=== PATIENT | female | born 1990 | race African-American/Black ===

== ENCOUNTER 2018-09-04 11:18 | Emergency (ER) | payer MEDICAID, SELFPAY ==
[2018-09-04 11:18] VITALS: BP 141/83; PULSE 108; RESP 16; TEMP 36.4; O2SAT 99; BMI 33.4
--- NOTE | 2018-09-04 11:35 | ED.VISSUMM ---
- ER Visit Summary Date of Service: 09/04/18 Chief Complaint: Red watery eye History of Present Illness: The patient is a 28 F who states that on Wednesday and she had a watering red left eye. Wednesday she had vomiting when she woke on Wednesday morning the medial part of her eye was more red. She states that this morning the eyelashes were crusted. She denies any pain. She does not wear contact lenses. She does wear corrective lenses. Physical Examination: Afebrile vital signs are stable Gen: Well-nourished well-developed Head: Normocephalic atraumatic Eyes: Perrl EOMI on the medial aspect of the left eye is a subconjunctival hemorrhage. There is no hyphema. There is no photophobia. The rest of the eye is injected and the patient has tearing. ENT: TMs clear no rhinorrhea moist mucous membranes Neck: Supple no lymphadenopathy no JVD nontender CVS: Regular rate rhythm no murmurs normal S1-S2 Respiratory: No distress clear to auscultation bilaterally chest nontender Abdomen: Soft nontender nondistended normal bowel sounds no masses Back: Nontender Extremity: Nontender no edema Skin: Normal color no rash Neuro: alert orientated ?3 CN II-XII intact normal strength sensation reflexes gait cerebellar Psych: Normal affect normal mood Emergency Department Course and Treatment: She will be started on gentamicin ophthalmic drops. Patient return if worsening or concerns. If no improvement follow-up with ophthalmology. Impression: 1. Acute conjunctivitis left eye 2. Subconjunctival hemorrhage left eye This note was generated with [employer] dictation software. It may contain incorrect words, spelling, and punctuation that were not noted in review of the chart prior to signing ED Disposition - Plan for ED Patient: Disposition: Home or Assisted Living Instructions: ED Conjunctivitis Bacterial, ED Eye Injury Subconj Hemorrhage Referrals: Wenceslao Ledesma MD [STAFF PHYSICIAN] - 3-5 Days if not improving Additional Instructions: The eyedrops are 2 drops every 4 hours x 5 days
[2018-09-04] MEDS: Gentamicin Sulfate 1 OPTH.BTL 2 DRP LEFT EYE (11:51)
== END 2018-09-04 11:52 | disposition home or self-care (01) ==
LOC: ED 11:45
PROVIDERS: Emergency Provider Emergency Medicine; Family Provider Student in an Organized Health Care Education/Training Program; PCP Student in an Organized Health Care Education/Training Program
DX: H10.32 Unspecified acute conjunctivitis, left eye (principal); H11.32 Conjunctival hemorrhage, left eye; K21.9 Gastro-esophageal reflux disease without esophagitis
CPT/HCPCS: 99283

== ENCOUNTER 2019-08-24 14:06 | Emergency (ER) | payer MEDICAID, SELFPAY ==
[2019-08-24 14:07] VITALS: BP 148/91; PULSE 82; RESP 17; TEMP 37.2; O2SAT 100; BMI 36.1
[2019-08-24] MEDS: Loperamide 2 MG Capsule 4 MG PO (14:36)
[2019-08-24] MEDS: Ondansetron ODT 4 MG Tablet PO (14:36)
--- NOTE | 2019-08-24 14:46 | ED.VIS.GEN ---
History of Present Illness Chief Complaint: Nausea/Vomiting/Diarrhea Informant: Patient, Family, Significant Other Onset: Today Narrative: She presents the emergency department with vomiting and diarrhea. Symptoms began during the night. She notes her daughter had a stomach flu last weekend. She tells me that she felt okay yesterday but did have a little bit of runny nose and a cough. No fevers. No bad food exposure. No recent antibiotics. She denies any significant abdominal pains but does note some intermittent cramping.. Past Medical History - Allergies and Home Meds Allergies/Adverse Reactions: Allergies No Known Allergies Allergy (Verified 08/24/19 14:07) Primary Care Physician: Toby Fontaine DO [Primary Care Provider] - Smoking Status: Never smoker Review of Systems General: Denies: Chills, Fever, Sweats Eyes: Denies: Visual changes - bilaterally, Diplopia ENT: Reports: Rhinorrhea. Denies: Sore throat Cardiovascular: Denies: Chest pain, Palpitations Respiratory: Reports: Cough. Denies: Dyspnea, Dyspnea on exertion Gastrointestinal: Reports: Nausea, Vomiting, Diarrhea. Denies: Abdominal pain, Melena, Hematochezia Genitourinary: Denies: Dysuria, Hematuria, Frequency Musculoskeletal: Denies: Back pain, Extremity Pain Skin: Denies: Rash, Wounds Neurological: Denies: Headache, Weakness, Numbness Physical Exam Vital Signs/Narrative: Vital Signs Temp Pulse Resp BP Pulse Ox 08/24/19 14:07 98.9 F 82 17 148/91 H 100 Inital Vital Signs reviewed: Yes General: Well nourished, Well developed, No Acute Distress Head: Normocephalic, Atraumatic Eyes: Perrl, EOMI ENT: Moist mucous membranes, No rhinorrhea Neck: Supple, Nontender Cardiovascular: Regular rate, Regular rhythm, No murmurs Respiratory: No distress, CTA bilaterally, Chest nontender Abdomen: Soft, Nontender, Nondistended, Normal bowel sounds Back: Nontender, Normal Inspection Extremities: Nontender, No edema Skin: Normal color, No rash Neurological: Alert, Oriented x3, Cranial nerves II-XII grossly intact, Normal Strength, Normal Sensation Psychological: Normal affect, Normal Mood Diagnostic/Tx/Re-eval - Medical Decision Making She received a dose of Imodium and Zofran. She is given a p.o. challenge. I believe this most likely is a viral gastroenteritis. Patient be discharged home with Zofran and Imodium return if worsening or concerns. oral hydration encouraged. ED Disposition - Plan for ED Patient: Disposition: Home or Assisted Living Instructions: GASTROENTERITIS, Viral (7y-Adult) Prescriptions: Ondansetron [Zofran Odt] 4 mg PO Q8H PRN PRN #14 tab PRN Reason: Nausea Prescription Printed Referrals: Toby Fontaine DO [Primary Care Provider] - As Needed Additional Instructions: Imodium as needed for diarrhea. Drink plenty of water to stay hydrated. Return if worsening or concerns.
[2019-08-24 15:02] VITALS: BP 135/89; PULSE 67; RESP 18
== END 2019-08-24 15:08 | disposition home or self-care (01) ==
PROVIDERS: Emergency Provider Emergency Medicine; PCP Student in an Organized Health Care Education/Training Program
DX: A08.4 Viral intestinal infection, unspecified (principal)
CPT/HCPCS: 99283

== ENCOUNTER 2020-12-28 09:08 | Emergency (ER) | payer MEDICAID, SELFPAY ==
[2020-12-28 09:09] VITALS: BP 140/93; PULSE 103; RESP 18; TEMP 36.5; O2SAT 96; BMI 33.4
[2020-12-28 09:11] VITALS: BP 140/93; PULSE 103; RESP 18; TEMP 36.5; O2SAT 96
--- NOTE | 2020-12-28 09:23 | CT_ITS ---
EXAM: CT ABDOMEN AND PELVIS WITHOUT INTRAVENOUS CONTRAST : 1990 CLINICAL INDICATION: Pain TECHNIQUE: Helically acquired images were obtained of the abdomen and pelvis without intravenous contrast. This CT exam was performed using one or more of the following dose reduction techniques: automated exposure control, adjustment of the mA and/or kV according to patient size, and/or use of iterative reconstruction technique. This report was created using [employer] report generation technology. COMPARISON: None. FINDINGS: LOWER THORAX: Unremarkable. Lung bases are clear. No cardiomegaly. No significant pericardial effusion. ABDOMEN: LIVER: Unremarkable. Homogeneous. GALLBLADDER AND BILE DUCTS: Gallbladder is absent. No intra- or extrahepatic biliary ductal dilation. PANCREAS: Unremarkable. No focal cystic mass. SPLEEN: Unremarkable. Normal size without focal cystic or solid mass. ADRENALS: Unremarkable. No nodules. KIDNEYS AND URETERS: Unremarkable. Normal renal size and position. No hydronephrosis. STOMACH AND BOWEL: Unremarkable. No stomach or bowel distention. No focal inflammatory change. PELVIS: APPENDIX: Appendix is visualised and normal in appearance. BLADDER: Unremarkable. REPRODUCTIVE: Unremarkable as visualized. No mass. ABDOMEN and PELVIS: INTRAPERITONEAL SPACE: Unremarkable. No ascites or other fluid collection. No free air. BONES/JOINTS: Unremarkable. No suspicious lytic or blastic abnormality. SOFT TISSUES: Unremarkable. No discrete abdominal or pelvic wall hernia. VASCULATURE: Unremarkable. Abdominal aorta is non-dilated. LYMPH NODES: Unremarkable. No enlarged lymph nodes. CT/Abdomen/Pelvis without Cont IMPRESSION: No acute abdominal or pelvic abnormality. Individualized dose optimization techniques were used for this CT. at 1111 Reported and signed by: Main Monzon MD Electronically Signed: Main Monzon MD at 11:10 EDT Tel , Service support ,
--- NOTE | 2020-12-28 09:59 | EDS_ITS ---
HPI History of Present Illness Chief Complaint: Flank Pain Narrative Narrative: Right flank pain that began yesterday for unspecified reasons patient ports she did lift an object into her car she had no pain with doing so then later on the day but she been having right flank pain, she indicates a week ago she had right flank pain for unspecified reason she had no specific activity then, she denies fever cough direct trauma, prior cholecystectomy, no other GI issues, no kidney issues kidney stones normal bowel bladder habits denies being no coronavirus exposures, no fever cough she points to her right flank as area of discomfort no other issues PFSH PFSH Medical History (Updated 12/28/20 @ 11:[address] Declan Awad MD) GERD (gastroesophageal reflux disease) Home Medications cyclobenzaprine 10 mg PO TID PRN PRN 09/04/18 [History Last Taken Unknown] naproxen 500 mg PO BID PRN PRN 09/04/18 [History Last Taken Unknown] pantoprazole 40 mg PO DAILY 09/04/18 [History Last Taken Unknown] ondansetron 4 mg PO Q8H PRN PRN #14 tab 08/24/19 [Rx Last Taken Unknown] naproxen 500 mg PO BID #14 tab 12/28/20 [Rx Last Taken Unknown] Allergy/AdvReac Type Severity Reaction Status Date / Time No Known Allergies Allergy Verified 12/28/20 09:09 Surgical History (Updated 12/28/20 @ 09:48 by Taylor Gr) History of cholecystectomy Social History Smoking Status: Never smoker ROS ROS ED ROS Narrative Right flank pain as above there is a component of movement makes the pain worse she has not taken for the pain yet she has no back ailments Constitutional Constitutional ED: Reports subjective, sweats and other; Denies chills, fever(s) or weight loss Eyes Eyes: Denies blurry vision or change in vision ENT ENT ED: Denies ear pain Cardiovascular Cardiovascular: Denies chest pain or palpitations Respiratory/Chest Respiratory/Chest: Denies dyspnea Gastrointestinal Gastrointestinal: Denies abdominal pain, nausea or vomiting Genitourinary Genitourinary ED: Denies dysuria or hematuria Musculoskeletal Musculoskeletal: Denies arthralgias or myalgias Integumentary Reports rash; Denies abscess Neurologic Neurologic: Denies weakness Psychiatric Psychiatric: Denies anxiety or depression Endocrine Endocrinology: Denies polydipsia or polyuria Allergic/Immunologic Allergic/Immunologic ED: Denies urticaria EXAM Physical Exam Narrative Exam Narrative: She has a very mild right flank pain head neck chest unremarkable abdomen soft nontender she moving all 4 extremities midline back is unremarkable see as above there Const Vital Signs: 12/28/20 09:09 12/28/20 09:11 12/28/20 11:13 Temperature 97.7 F L 97.7 F L Temperature Source Temporal Temporal Pulse Rate 103 H 103 H 83 Respiratory Rate 18 18 14 Blood Pressure 140/93 H 140/93 H 143/107 H Blood Pressure Mean 108 108 119 Pulse Ox 96 96 98 Oxygen Delivery Method Room Air Room Air Room Air Positive well developed General Appearance ED: well developed HEENT Reports normocephalic Negative for trauma Eyes EOMs intact bilaterally Neck supple Chest Wall inspection of chest normal Resp normal respiratory effort Cardio regular rate GI non-tender and non-distended Back/Spine Back/Spine Narrative: unremarkable Extremity normal to inspection Neuro oriented x3 and CN's II-XII intact bilaterally Sensorium / Orientation: alert Psych mental status grossly normal Skin no rashes or lesions noted MDM MDM MDM Narrative Medical decision making narrative: Given her complaints and her age and this recurrent flank pain may or may not be musculoskeletal differentials extensive she undergo ED screening labs CT pain management Patient's ED screening evaluation labs urine CT abdomen pelvis showed nothing acute see those reports explained this to her given her initial mechanism of lifting pack the pain is worse with twisting was negative ED work-up this is likely with musculoskeletal condition she will be started on Naprosyn ice follow-up with her primary care physicians and return for change in symptoms Home stable Right flank pain after lifting Lab Data Labs: Laboratory Results - last 24 hr 12/28/20 12/28/20 12/28/20 10:00 10:00 10:00 WBC 6.4 RBC 5.10 Hgb 14.2 Hct 44.0 MCV 86.3 MCH 27.8 MCHC 32.3 RDW Std Deviation 44.5 H RDW Coeff of Jolanta 14.1 Plt Count 387 MPV 8.8 Immature Gran % (Auto) 0.200 Neut % (Auto) 54.7 Lymph % (Auto) 34.7 [place] % (Auto) 7.2 Eos % (Auto) 2.7 Baso % (Auto) 0.5 Absolute Neuts (auto) 3.5 Absolute Lymphs (auto) 2.21 Nucleated RBC % 0 Sodium 142 Potassium 4.0 Chloride 108 H Carbon Dioxide 29.0 Anion Gap 5 BUN 11 Creatinine 0.81 Estim Creat Clear Calc 103.38 Est GFR (MDRD) Af Amer 107 Est GFR (MDRD) Non-Af 88 BUN/Creatinine Ratio 13.5 Glucose 88 Calcium 9.5 Total Bilirubin 0.20 AST 16 ALT 28 Alkaline Phosphatase 67 Total Protein 8.4 H Albumin 4.5 Globulin 3.9 Albumin/Globulin Ratio 1.2 Lipase 132 Serum , Qual NEGATIVE Urine Color Urine Clarity Urine pH Ur Specific [place] Urine Protein Urine Glucose (UA) Urine Ketones Urine Occult Blood Urine Nitrite Urine Bilirubin Urine Urobilinogen Ur Leukocyte Esterase Urine RBC Urine WBC Ur Squamous Epith Cells Urine Bacteria Urine Mucus 12/28/20 10:00 WBC RBC Hgb Hct MCV MCH MCHC RDW Std Deviation RDW Coeff of [place] Plt Count MPV Immature Gran % (Auto) Neut % (Auto) Lymph % (Auto) [place] % (Auto) Eos % (Auto) Baso % (Auto) Absolute Neuts (auto) Absolute Lymphs (auto) Nucleated RBC % Sodium Potassium Chloride Carbon Dioxide Anion Gap BUN Creatinine Estim Creat Clear Calc Est GFR (MDRD) Af Amer Est GFR (MDRD) Non-Af BUN/Creatinine Ratio Glucose Calcium Total Bilirubin AST ALT Alkaline Phosphatase Total Protein Albumin Globulin Albumin/Globulin Ratio Lipase Serum , Qual Urine Color Yellow Urine Clarity Clear Urine pH 8.0 Ur Specific [place] 1.015 Urine Protein Negative Urine Glucose (UA) Normal Urine Ketones Negative Urine Occult Blood 50 H Urine Nitrite Negative Urine Bilirubin Negative Urine Urobilinogen Normal Ur Leukocyte Esterase Negative Urine RBC 0 SEEN Urine WBC 0-5 SEEN Ur Squamous Epith Cells 0-5 SEEN Urine Bacteria 1+ Urine Mucus 0 SEEN Radiography Diagnostic Testing: Radiology Impression Abdomen/Pelvis CT 12/28/20 09:23 IMPRESSION: No acute abdominal or pelvic abnormality. Individualized dose optimization techniques were used for this CT. at 1111 Reported and signed by: Main Monzon MD Electronically Signed: Main Monzon MD at 11:10 EDT Tel , Service support , Discharge Plan Triage Chief Complaint: Flank Pain ED Provider: Declan Awad Dx/Rx/DC Orders Clinical Impression: Acute flank pain Instructions: ED Flank Pain, Uncertain Cause Prescriptions: New naproxen 500 MG tablet 500 mg PO BID Qty: 14 RF: 0 No Action cyclobenzaprine 10 MG tablet 10 mg PO TID PRN PRN (Reason: muscle spasms) RF: 0 pantoprazole 40 MG tablet 40 mg PO DAILY RF: 0 naproxen 500 MG tablet 500 mg PO BID PRN PRN (Reason: Pain) RF: 0 ondansetron 4 MG tablet 4 mg PO Q8H PRN PRN (Reason: Nausea) Qty: 14 RF: 0 Primary Care Provider: Toby Fontaine Referrals: Toby Fontaine DO [Primary Care Provider] -
[2020-12-28 10:07] LABS: Mucous, Urine 0 SEEN /hpf (<or=2+); Red Blood Cells-Urine 0 SEEN /hpf (0-5)
[2020-12-28] MEDS: morphine 8 MG/ML Syringe IV (10:07)
[2020-12-28] MEDS: Ondansetron 4 MG/2 ML Vial IV (10:07)
[2020-12-28 10:09] LABS: Color, Urine Yellow (Yellow); Glucose, Dipstick Normal (Normal); Ketone-Dipstick Negative (Negative); Leukocyte Esterase-Dipstick Negative /ul (Negative); Nitrite-Dipstick Negative (Negative); Occult Blood-Urine 50 /ul (Negative); Protein-Dipstick Negative (Negative); Specific Gravity, Urine 1.015 (1.002-1.030); Urine Bilirubin Dipstick Negative (Negative); Urine Clarity Clear (Clear); Urine Urobilinogen Normal (Normal)
[2020-12-28 10:11] LABS: Absolute Lymphocyte Count 2.21 X10^3/uL (0.83-4.51); Absolute Neutrophil Count 3.5 X10^3/uL (2.0-7.7); Basophil# 0.03 X10^3/uL; Basophil% 0.5 % (0-1); Eosinophil# 0.17 X10^3/uL; Eosinophils% 2.7 % (0-5); Hemoglobin 14.2 g/dL (12.0-15.0); Lymphocyte # 2.21 X10^3/ul (0.83-4.51); Lymphocyte % 34.7 % (19-41); Mean Corp Hgb Conc 32.3 g/dL (32-36); Mean Corpuscular Hgb 27.8 pg (27.0-32.0); Mean Corpuscular Volume 86.3 fL (81-99); Mean Platelet Vol. 8.8 fl (6.2-12.0); Monocyte# 0.46 X10^3/uL; Monocyte% 7.2 % (0-10); NRBC Flagged by Analyzer 0 % (0-5); Neutrophil # 3.49 X10^3/uL (2.7-7.7); Neutrophil % 54.7 % (47-70); Platelet Count 387 K/mm3 (150-450); RBC Distribution Width CV 14.1 % (11.6-14.6); RBC Distribution Width SD 44.5 fl (35.1-43.9); White Blood Count 6.4 K/mm3 (4.4-11.0)
[2020-12-28 10:24] LABS: ALB/GLOB Ratio 1.2 RATIO (0.9-2.4); AST(SGOT) 16 U/L (15-37); Alanine Aminotransfer ALT/SGPT 28 U/L (13-56); Albumin, Serum 4.5 g/dL (3.2-5.0); Alkaline Phosphatase 67 U/L (45-117); Anion Gap 5 (5-15); BUN 11 mg/dL (7-18); BUN/Creat Ratio 13.5 RATIO (10-20); Calcium,Total 9.5 mg/dL (8.5-10.1); Chloride 108 mmol/L (98-107); Creatinine, Serum 0.81 mg/dL (0.55-1.02); EST Glomerular Filtration Rate 88 mL/min (>60); Est Glom Filt Rate - Afr Amer 107 mL/min (>60); Estimated Creatinine Clearance 103.38 ml/min; Globulin 3.9 g/dL (2.2-4.2); Glucose 88 mg/dL (74-106); Lipase 132 U/L (73-393); Protein, Total 8.4 g/dL (6.4-8.2); Sodium Level 142 mmol/L (136-145)
[2020-12-28 10:26] LABS: Bacteria 1+ /hpf (None Seen); Squamous Epithelial Cells - UA 0-5 SEEN /hpf (5-10); White Blood Cells 0-5 SEEN /hpf (0-5)
[2020-12-28 10:37] LABS: Internal QC Validated? YES +Cl - CLEAR BKGD; Pregnancy, Serum, hCG Quali. NEGATIVE Negative
[2020-12-28] MEDS: Ketorolac 30 MG/ML Syringe IV (11:12)
[2020-12-28 11:13] VITALS: BP 143/107; PULSE 83; RESP 14; O2SAT 98
== END 2020-12-28 12:02 | disposition home or self-care (01) ==
LOC: ED 10:46
PROVIDERS: Emergency Provider Emergency Medicine; PCP Student in an Organized Health Care Education/Training Program
DX: R10.9 Unspecified abdominal pain (principal); K21.9 Gastro-esophageal reflux disease without esophagitis; Z90.49 Acquired absence of other specified parts of digestive tract; Z79.1 Long term (current) use of non-steroidal anti-inflammatories (NSAID)
CPT/HCPCS: 74176; 80053; 81001; 83690; 84703; 85025; 87086; 87088; 96374; 96375; 99282; A4216; J2405

== ENCOUNTER → 2021-06-02 10:56 | Outpatient (CLI) | payer MEDICAID, SELFPAY ==
[2021-06-02 11:34] LABS: Hemoglobin A1c 5.2 % (3.8-5.6)
[2021-06-02 11:40] LABS: Cholesterol 170 mg/dL (200); Glucose 85 mg/dL (74-106); High Density Lipoprotein 69 mg/dL; Prolactin 6.2 ng/mL; Thyroid Stim Hormone (TSH) 0.63 uIU/mL (0.358-3.74); Triglycerides 110 mg/dL; Very Low Density Lipoprotein 22 mg/dL (5-40)
[2021-06-07 15:07] LABS: Testosterone, % Free 1.55 % (0.50-2.80); Testosterone, Free 0.17 ng/dL (0.10-0.85); Testosterone, Total 11 ng/dL (13-71)
== END ==
PROVIDERS: PCP Student in an Organized Health Care Education/Training Program; Referring Provider Obstetrics & Gynecology; Visit Provider Obstetrics & Gynecology
DX: Z31.9 Encounter for procreative management, unspecified (principal)
CPT/HCPCS: 36415; 80061; 82627; 82947; 83036; 84146; 84402; 84403; 84443; 82626

== ENCOUNTER 2021-08-12 11:56 | Outpatient (CLI) | payer MEDICAID, SELFPAY ==
--- NOTE | 2021-08-12 11:58 | RAD_ITS ---
STUDY: HYSTEROSALPINGOGRAM. REASON FOR EXAM: Female, 31 years old. Infertility FLUOROSCOPY TIME (if supplied): ( 15 seconds ) minutes/seconds. 2 images were obtained. TECHNIQUE: A hysterosalpingogram was performed by the scallop binder. Imaging was provided. COMPARISON: None. FINDINGS: The uterus is unremarkable. Both fallopian tubes are widely patent with free spill. RAD/Salpingogram IMPRESSION: Unremarkable hysterosalpingogram. Electronically Signed: Luis Ernst MD at 15:08 EST ,
--- NOTE | 2021-08-15 13:05 | OP.PCM_ITS ---
Operative Report Date of Procedure: 08/12/21 Preop diagnosis: Infertility Postop diagnosis: Infertility, bilateral tubal patency Procedure: Hysterosalpingogram Surgeon: Patricia Borrero Do Implantable devices: None Complications: None Findings: Bilateral tubal patency and normal uterine cavity Operative details: Patient was taken to the x-ray room and was placed on the x- ray table and was in the dorsal lithotomy position. Speculum was placed in the vagina and the cervix prepped with Betadine and the HSG catheter was easily introduced into the uterus and speculum removed. Radiologist was brought in and while pushing radiopaque dye into the uterus via the HSG catheter the radiologist took multiple images and views and confirmed bilateral tubal patency seen. No gross uterine filling defects or abnormalities were seen. All instruments removed from the vagina and the uterus without complication. Patient tolerated the procedure well. Multi Select Codes Urinary/Genital Urinary/Genital CPT Codes: 11341 HSG/SIS
== END 2021-08-12 23:59 | disposition short-term general hospital (02) ==
LOC: RAD 11:58
PROVIDERS: PCP Student in an Organized Health Care Education/Training Program; Referring Provider Obstetrics & Gynecology; Visit Provider Obstetrics & Gynecology
DX: E28.2 Polycystic ovarian syndrome (principal); N97.9 Female infertility, unspecified
CPT/HCPCS: 58340; 74740; Q9967

== ENCOUNTER 2021-09-15 08:54 | Outpatient (CLI) | payer MEDICAID, SELFPAY ==
[2021-09-15 09:39] LABS: hCG Titer Quant., Serum 829 mIU/mL (1-3)
== END 2021-09-15 23:59 | disposition home or self-care (01) ==
PROVIDERS: PCP Student in an Organized Health Care Education/Training Program; Referring Provider Obstetrics & Gynecology; Visit Provider Obstetrics & Gynecology
DX: N92.6 Irregular menstruation, unspecified (principal)
CPT/HCPCS: 36415; 84702

== ENCOUNTER 2021-09-17 08:47 | Outpatient (CLI) | payer MEDICAID, SELFPAY ==
[2021-09-17 09:57] LABS: hCG Titer Quant., Serum 1682 mIU/mL (1-3)
== END 2021-09-17 23:59 | disposition home or self-care (01) ==
LOC: PAVLAB 08:48
PROVIDERS: PCP Student in an Organized Health Care Education/Training Program; Referring Provider Obstetrics & Gynecology; Visit Provider Obstetrics & Gynecology
DX: N92.6 Irregular menstruation, unspecified (principal)
CPT/HCPCS: 36415; 84702

== ENCOUNTER 2021-10-09 14:01 | Outpatient (CLI) | payer MEDICAID, SELFPAY ==
[2021-10-09 13:45] LABS: Amphetamine Urine VISTA NEGATIVE (<1000 ng/mL); Barbiturate Urine VISTA NEGATIVE (< 200 ng/mL); Benzodiazepine Urine VISTA NEGATIVE (< 200 ng/mL); Cocaine Urine VISTA NEGATIVE (< 300 ng/mL); Ecstacy Urine VISTA NEGATIVE (< 500 ng/mL); Methadone Urine VISTA NEGATIVE (< 300 ng/mL); PCP Urine VISTA NEGATIVE (< 25 ng/mL); THC Urine VISTA POSITIVE (< 50 ng/mL); Vista UDS pH Range 5
[2021-10-12 09:08] LABS: Chlamydia By Nucleic Acid AMP Negative (Negative)
[2021-10-12 10:20] LABS: Gonococcus By Nucleic Acid AMP Negative (Negative)
[2021-10-17 13:47] LABS: HPV APTIMA, High Risk Negative (Negative)
== END 2021-10-09 23:59 | disposition home or self-care (01) ==
LOC: LABSPEC 14:02
PROVIDERS: PCP Student in an Organized Health Care Education/Training Program; Visit Provider Obstetrics & Gynecology
DX: Z34.80 Encounter for supervision of other normal pregnancy, unspecified trimester (principal)
CPT/HCPCS: 80307; 87086; 87088; 87491; 87591; 87624; 88175; G0145

== ENCOUNTER 2021-10-24 09:31 | Outpatient (CLI) | payer MEDICAID, SELFPAY ==
[2021-10-24 10:11] LABS: Absolute Lymphocyte Count 1.77 X10^3/uL (0.83-4.51); Absolute Neutrophil Count 5.7 X10^3/uL (2.0-7.7); Basophil# 0.01 X10^3/uL; Basophil% 0.1 % (0-1); Eosinophil# 0.07 X10^3/uL; Eosinophils% 0.9 % (0-5); Hematocrit 37.6 % (37-47); Hemoglobin 12.3 g/dL (12.0-15.0); Lymphocyte # 1.77 X10^3/ul (0.83-4.51); Lymphocyte % 22.1 % (19-41); Mean Corp Hgb Conc 32.7 g/dL (32-36); Mean Corpuscular Hgb 27.8 pg (27.0-32.0); Mean Corpuscular Volume 85.1 fL (81-99); Mean Platelet Vol. 9.1 fl (6.2-12.0); Monocyte# 0.38 X10^3/uL; Monocyte% 4.8 % (0-10); NRBC Flagged by Analyzer 0 % (0-5); Neutrophil # 5.74 X10^3/uL (2.7-7.7); Neutrophil % 71.7 % (47-70); Platelet Count 331 K/mm3 (150-450); RBC Distribution Width CV 13.2 % (11.6-14.6); Red Blood Count 4.42 M/mm3 (4.2-5.4)
[2021-10-24 10:55] LABS: NATERA MAILED SPECIMEN
[2021-10-24 11:08] LABS: Glucose Challenge Gest 1H 50g 112 mg/dL (70-140)
[2021-10-24 11:37] LABS: HIV - WCH Non-Reactive (Nonreactive); Hepatitis B Surface Antigen Non-Reactive (Nonreactive); Hepatitis C Antibody Non-Reactive (Nonreactive); Rubella IgG Reactive (Nonreactive); Syphilis Antibodies Non-reactive
[2021-10-26 15:53] LABS: V-Zoster IgG (Immunity) < 135 index (Immune >165)
== END 2021-10-24 23:59 | disposition home or self-care (01) ==
LOC: PAVLAB 09:33
PROVIDERS: PCP Student in an Organized Health Care Education/Training Program; Referring Provider Obstetrics & Gynecology; Visit Provider Obstetrics & Gynecology
DX: O99.210 Obesity complicating pregnancy, unspecified trimester (principal)
CPT/HCPCS: 36415; 82950; 85025; 86703; 86762; 86780; 86787; 86803; 86850; 86900; 86901; 87340

== ENCOUNTER → 2021-12-05 | Outpatient (CLI) | payer MEDICAID, SELFPAY ==
[2021-12-04 11:06] LABS: Amphetamine Urine VISTA NEGATIVE (<1000 ng/mL); Barbiturate Urine VISTA NEGATIVE (< 200 ng/mL); Benzodiazepine Urine VISTA NEGATIVE (< 200 ng/mL); Cocaine Urine VISTA NEGATIVE (< 300 ng/mL); Ecstacy Urine VISTA NEGATIVE (< 500 ng/mL); Methadone Urine VISTA NEGATIVE (< 300 ng/mL); PCP Urine VISTA NEGATIVE (< 25 ng/mL); THC Urine VISTA POSITIVE (< 50 ng/mL); Vista UDS pH Range 7
== END | disposition home or self-care (01) ==
LOC: LABSPEC 09:27
PROVIDERS: PCP Student in an Organized Health Care Education/Training Program; Visit Provider Nurse Practitioner Women's Health
DX: O99.321 Drug use complicating pregnancy, first trimester (principal); F12.90 Cannabis use, unspecified, uncomplicated; Z3A.13 13 weeks gestation of pregnancy
CPT/HCPCS: 80307

== ENCOUNTER → 2021-12-30 | Outpatient (CLI) | payer MEDICAID, SELFPAY ==
--- NOTE | 2021-12-30 09:13 | US_ITS ---
STUDY: ULTRASOUND BREAST - RIGHT REASON FOR EXAM: Female, 31 years old. Palpable mass TECHNIQUE: Axial and longitudinal images of the RIGHT breast were performed with a high resolution ultrasound transducer. # OF IMAGES: 29 COMPARISON: None. FINDINGS: RIGHT Breast: Heterogeneous background echotexture. Multiple longitudinal and transverse ultrasound images of the lower inner quadrant of the right breast fail to demonstrate a discrete solid or cystic mass.: US/Breast Limited Unilateral IMPRESSION: Normal right breast ultrasound. Biopsy and of any palpable abnormality should be performed if clinically indicated. ASSESSMENT CATEGORY: BIRADS Category 1: Negative. A letter regarding these results will be sent to the patient by the facility within 30 days. Electronically Signed: Liam Thao MD at 10:00 EDT ,
== END | disposition home or self-care (01) ==
LOC: OPBI 09:11
PROVIDERS: PCP Student in an Organized Health Care Education/Training Program; Referring Provider Nurse Practitioner Family; Visit Provider Nurse Practitioner Family
DX: N63.14 Unspecified lump in the right breast, lower inner quadrant (principal)
CPT/HCPCS: 76642

== ENCOUNTER → 2022-01-06 | Outpatient (CLI) | payer MEDICAID, SELFPAY | END | disposition home or self-care (01) | LOC: LABSPEC 14:13 | PROVIDERS: PCP Student in an Organized Health Care Education/Training Program; Referring Provider Nurse Practitioner Family; Visit Provider Nurse Practitioner Family | DX: N61.1 Abscess of the breast and nipple (principal) | CPT/HCPCS: 87070; 87077; 87205 ==

== ENCOUNTER 2022-02-01 10:35 | Emergency (ER) | payer MEDICAID, SELFPAY ==
[2022-02-01 10:35] VITALS: BP 138/78; PULSE 109; RESP 16; TEMP 36.2; O2SAT 98; BMI 34.0
--- NOTE | 2022-02-01 10:47 | EDS_ITS ---
HPI History of Present Illness Chief Complaint: Nausea/Vomiting Detail of Chief Complaint: Vomiting and diarrhea that started this morning around 5 AM Informant: patient Narrative Narrative: Patient presents to the emergency department with complaint of vomiting and diarrhea that started this morning around 5 AM. Patient states that she has vomited about 5 times and has had about 3 watery stools. Patient denies any blood in her stool. She denies dysuria. She denies fever. She denies sick contacts. Patient denies abdominal pain. Patient is 25 weeks . She is G2, P1. Patient has not had issues with hyperemesis during this . PFSH PFS Medical History Depression GERD (gastroesophageal reflux disease) Thyromegaly Home Medications vits no.126-ferrous fum 28 mg iron-folic acid 800 mcg tablet (Classic ) 1 tab PO DAILY 90 days #90 tabs 06/02/21 [Rx Last Taken Unknown] penicillin V potassium 500 mg tablet 500 mg PO BID 10 days #20 tabs 01/28/22 [Rx Last Taken Unknown] ondansetron 4 mg disintegrating tablet 4 mg PO Q8H PRN PRN Nausea #10 tabs 02/01/22 [Rx Last Taken Unknown] Allergy/AdvReac Type Severity Reaction Status Date / Time powder Allergy Mild rash Uncoded 02/01/22 10:36 tape Allergy Mild Rash Uncoded 02/01/22 10:36 Family History Mother Hypertension Thyroid disorder Surgical History History of cholecystectomy S/P Social History adopted: No household members: spouse and children number of children: 1 current occupational status: employed current occupation: [employer] pets and animals: Yes pets and animals: dog(s) Smoking Status: Former smoker alcohol intake: current details: occasionally/not while substance use type: does not use caffeine: Yes what type of physical activity do you participate in: none seatbelt use: always do you feel safe at home: Yes additional social history: -Julian (daughter Antonette from previous relationship) ROS ROS ED Review of Systems ROS Unobtainable: other Constitutional Constitutional ED: Reports lethargy; Denies chills, fever(s), sweats or weight loss Eyes Eyes: Denies blurry vision, change in vision or diplopia ENT ENT ED: Denies rhinorrhea or sore throat Cardiovascular Cardiovascular: Reports chest pain and racing heartbeat; Denies orthopnea Respiratory/Chest Respiratory/Chest: Reports dyspnea and dyspnea on exertion; Denies cough, orthopnea or sputum Gastrointestinal Gastrointestinal: Reports diarrhea, nausea and vomiting; Denies abdominal pain Genitourinary Genitourinary ED: Denies dysuria, hematuria or urinary frequency Musculoskeletal Musculoskeletal: Denies arthralgias, back pain, myalgias or neck pain Integumentary Denies abscess, Abrasions or rash Neurologic Neurologic: Denies headache(s) or weakness Psychiatric Psychiatric: Denies anxiety, depression or suicidal thoughts Endocrine Endocrinology: Denies polydipsia, polyphagia or polyuria Hematologic/Lymphatic Hematologic/Lymphatic: Denies easy bleeding, easy bruising or lymphadenopathy Allergic/Immunologic Allergic/Immunologic ED: Denies mouth swelling, tongue swelling or urticaria EXAM Physical Exam Const Vital Signs: 02/01/22 10:35 Temperature 97.2 F L Temperature Source Temporal Pulse Rate 109 H Respiratory Rate 16 Blood Pressure 138/78 H Blood Pressure Mean 98 Pulse Ox 98 Oxygen Delivery Method Room Air Positive well nourished and well developed General Appearance ED: well developed and NAD HEENT Reports TM's clear and moist mucous membranes normocephalic and atraumatic; Negative for trauma or tenderness Tympanic Membrane ED: Yes TM's clear Eyes PERRL and EOMs intact bilaterally General Eye ED: Negative for pale conjunctiva or scleral icterus Neck no lymphadenopathy, supple and no JVD General: Negative for tenderness Chest Wall inspection of chest normal and palpation of chest normal Chest: Negative for tenderness Resp normal respiratory effort and clear to auscultation bilaterally Effort and Inspection: Negative for respiratory distress or pain with movement Auscultation: Negative for rhonchi, wheezes or diminished lung sounds Cardio regular rate, regular rhythm, S1 normal heart sound, S2 normal heart sound and no murmurs Peripheral Pulses: pulses 2+ throughout GI normal to inspection, nondistended, normoactive bowel sounds, soft to palpation, non-tender, non-distended and no masses GI Narrative: Uterus gravid with fundal height approximately 5 cm above the umbilicus. Abdomen nontender. Back/Spine no CVA tenderness and no thoracic nor lumbar tenderness Extremity normal to inspection General Extremety ED: Negative for edema General Extremity: Negative for edema Neuro oriented x3, CN's II-XII intact bilaterally, no sensory deficits noted and gait normal Sensorium / Orientation: awake, alert, oriented to person, oriented to place and oriented to time Motor Exam: strength 5/5 throughout and strength abnormal Psych mental status grossly normal Skin no rashes or lesions noted and no wounds MDM MDM MDM Narrative Medical decision making narrative: .IV line established on arrival. Patient was given a liter normal saline fluid bolus. Patient received Zofran IV and she felt improved she had no further vomiting. Urinalysis showed 150 ketones but no signs of infection. Chemistries were unremarkable. At this point I suspect a viral gastroenteritis. Patient will be given a prescription for Zofran. Patient advised to push fluids. She is to follow-up with her primary care physician or [facility] within next 3 to 5 days. Lab Data Attestation: I reviewed the patient's lab results. Labs: Laboratory Results - last 24 hr 02/01/22 02/01/22 02/01/22 11:31 11:31 12:47 WBC 12.3 H RBC 4.39 Hgb 12.5 Hct 37.5 MCV 85.4 MCH 28.5 MCHC 33.3 RDW Std Deviation 42.6 RDW Coeff of [place]ol[place] 13.7 Plt Count 302 MPV 9.0 Immature Gran % (Auto) 0.400 Neut % (Auto) 88.0 H Lymph % (Auto) 6.9 L [place] % (Auto) 4.1 Eos % (Auto) 0.5 Baso % (Auto) 0.1 Absolute Neuts (auto) 10.8 H Absolute Lymphs (auto) 0.85 Nucleated RBC % 0 Sodium 138 Potassium 3.8 Chloride 107 Carbon Dioxide 26.0 Anion Gap 5 BUN 7 Creatinine 0.54 L Estim Creat Clear Calc 142.61 Est GFR (MDRD) Af Amer 169 Est GFR (MDRD) Non-Af 140 BUN/Creatinine Ratio 12.9 Glucose 93 Calcium 9.2 Urine Color Yellow Urine Clarity Clear Urine pH 7.0 Ur Specific [place] 1.010 Urine Protein Negative Urine Glucose (UA) Normal Urine Ketones 150 A* Urine Occult Blood Negative Urine Nitrite Negative Urine Bilirubin Negative Urine Urobilinogen Normal Ur Leukocyte Esterase Negative Urine RBC 0 SEEN Urine WBC 0 SEEN Ur Squamous Epith Cells 0-5 SEEN Urine Bacteria 0 SEEN Urine Mucus 0 SEEN Discharge Plan Triage Chief Complaint: Nausea/Vomiting ED Provider: Manny Lovell Dx/Rx/DC Orders Clinical Impression: Viral gastroenteritis Instructions: ED Gastroenteritis, Viral (Adult) Prescriptions: New ondansetron [ondansetron] 4 MG tablet 4 mg PO Q8H PRN PRN (Reason: Nausea) Qty: 10 0RF No Action Classic 28 mg iron- 800 mcg tablet 1 tab PO DAILY 90 Days Qty: 90 6RF penicillin V potassium 500 mg tablet 500 mg PO BID 10 Days Qty: 20 0RF Primary Care Provider: Toby Fontaine Referrals: Toby Fontaine DO [Primary Care Provider] - 3-5 Days Disposition Disposition: Home, Self Care
[2022-02-01] MEDS: 0.9% Normal Saline 1,000 ML 1000 ML IV (11:32)
[2022-02-01] MEDS: Ondansetron 4 MG/2 ML Vial IV (11:33)
[2022-02-01 11:36] LABS: Absolute Lymphocyte Count 0.85 X10^3/uL (0.83-4.51); Absolute Neutrophil Count 10.8 X10^3/uL (2.0-7.7); Basophil# 0.01 X10^3/uL; Basophil% 0.1 % (0-1); Eosinophil# 0.06 X10^3/uL; Eosinophils% 0.5 % (0-5); Hematocrit 37.5 % (37-47); Hemoglobin 12.5 g/dL (12.0-15.0); Lymphocyte # 0.85 X10^3/ul (0.83-4.51); Lymphocyte % 6.9 % (19-41); Mean Corp Hgb Conc 33.3 g/dL (32-36); Mean Corpuscular Hgb 28.5 pg (27.0-32.0); Mean Corpuscular Volume 85.4 fL (81-99); Monocyte# 0.51 X10^3/uL; Monocyte% 4.1 % (0-10); NRBC Flagged by Analyzer 0 % (0-5); Neutrophil # 10.84 X10^3/uL (2.7-7.7); Platelet Count 302 K/mm3 (150-450); RBC Distribution Width CV 13.7 % (11.6-14.6); RBC Distribution Width SD 42.6 fl (35.1-43.9); Red Blood Count 4.39 M/mm3 (4.2-5.4); White Blood Count 12.3 K/mm3 (4.4-11.0)
[2022-02-01 11:47] LABS: Anion Gap 5 (5-15); BUN 7 mg/dL (7-18); BUN/Creat Ratio 12.9 RATIO (10-20); Calcium,Total 9.2 mg/dL (8.5-10.1); Chloride 107 mmol/L (98-107); Creatinine, Serum 0.54 mg/dL (0.55-1.02); EST Glomerular Filtration Rate 140 mL/min (>60); Est Glom Filt Rate - Afr Amer 169 mL/min (>60); Estimated Creatinine Clearance 142.61 ml/min; Glucose 93 mg/dL (74-106); Potassium 3.8 mmol/L (3.5-5.1); Sodium Level 138 mmol/L (136-145)
[2022-02-01 12:54] LABS: Bacteria 0 SEEN /hpf (None Seen); Mucous, Urine 0 SEEN /hpf (<or=2+); Red Blood Cells-Urine 0 SEEN /hpf (0-5); White Blood Cells 0 SEEN /hpf (0-5)
[2022-02-01 12:56] LABS: Color, Urine Yellow (Yellow); Glucose, Dipstick Normal (Normal); Leukocyte Esterase-Dipstick Negative /ul (Negative); Nitrite-Dipstick Negative (Negative); Occult Blood-Urine Negative /ul (Negative); Protein-Dipstick Negative (Negative); Urine Bilirubin Dipstick Negative (Negative); Urine Clarity Clear (Clear); Urine Urobilinogen Normal (Normal)
[2022-02-01 13:03] LABS: Ketone-Dipstick 150 mg/dl (Negative)
[2022-02-01 13:04] LABS: Squamous Epithelial Cells - UA 0-5 SEEN /hpf (5-10)
== END 2022-02-01 13:30 | disposition home or self-care (01) ==
PROVIDERS: Emergency Provider Emergency Medicine; PCP Student in an Organized Health Care Education/Training Program; Visit Provider Emergency Medicine
DX: O98.512 Other viral diseases complicating pregnancy, second trimester (principal); A08.4 Viral intestinal infection, unspecified; Z3A.25 25 weeks gestation of pregnancy; Z87.891 Personal history of nicotine dependence
CPT/HCPCS: 80048; 81001; 85025; 96361; 96374; 99283; A4216; J2405

== ENCOUNTER → 2022-02-17 | Outpatient (CLI) | payer MEDICAID, SELFPAY ==
[2022-02-17 11:48] LABS: Amphetamine Urine VISTA NEGATIVE (<1000 ng/mL); Barbiturate Urine VISTA NEGATIVE (< 200 ng/mL); Benzodiazepine Urine VISTA NEGATIVE (< 200 ng/mL); Cocaine Urine VISTA NEGATIVE (< 300 ng/mL); Ecstacy Urine VISTA NEGATIVE (< 500 ng/mL); Methadone Urine VISTA NEGATIVE (< 300 ng/mL); PCP Urine VISTA NEGATIVE (< 25 ng/mL); THC Urine VISTA POSITIVE (< 50 ng/mL); Vista UDS pH Range 6
== END | disposition home or self-care (01) ==
LOC: LABSPEC 11:17
PROVIDERS: PCP Student in an Organized Health Care Education/Training Program; Visit Provider Nurse Practitioner Women's Health
DX: F12.90 Cannabis use, unspecified, uncomplicated (principal)
CPT/HCPCS: 80307

== ENCOUNTER → 2022-02-20 | Outpatient (CLI) | payer MEDICAID, SELFPAY ==
[2022-02-20 09:14] LABS: Absolute Lymphocyte Count 1.89 X10^3/uL (0.83-4.51); Absolute Neutrophil Count 5.8 X10^3/uL (2.0-7.7); Basophil# 0.01 X10^3/uL; Basophil% 0.1 % (0-1); Eosinophil# 0.14 X10^3/uL; Eosinophils% 1.7 % (0-5); Hematocrit 35.7 % (37-47); Hemoglobin 11.8 g/dL (12.0-15.0); Lymphocyte # 1.89 X10^3/ul (0.83-4.51); Lymphocyte % 22.4 % (19-41); Mean Corp Hgb Conc 33.1 g/dL (32-36); Mean Corpuscular Hgb 28.1 pg (27.0-32.0); Mean Platelet Vol. 9.6 fl (6.2-12.0); Monocyte# 0.57 X10^3/uL; Monocyte% 6.8 % (0-10); NRBC Flagged by Analyzer 0 % (0-5); Neutrophil # 5.79 X10^3/uL (2.7-7.7); Neutrophil % 68.6 % (47-70); Platelet Count 298 K/mm3 (150-450); RBC Distribution Width CV 13.7 % (11.6-14.6); RBC Distribution Width SD 42.5 fl (35.1-43.9); White Blood Count 8.4 K/mm3 (4.4-11.0)
[2022-02-20 09:39] LABS: Glucose Challenge Gest 1H 50g 122 mg/dL (70-140)
== END | disposition home or self-care (01) ==
LOC: LAB 08:25
PROVIDERS: PCP Student in an Organized Health Care Education/Training Program; Referring Provider Nurse Practitioner Women's Health; Visit Provider Nurse Practitioner Women's Health
DX: Z34.90 Encounter for supervision of normal pregnancy, unspecified, unspecified trimester (principal)
CPT/HCPCS: 36415; 82950; 85025

== ENCOUNTER → 2022-04-17 | Outpatient (CLI) | payer MEDICAID, SELFPAY | END | disposition home or self-care (01) | LOC: LABSPEC 15:35 | PROVIDERS: PCP Student in an Organized Health Care Education/Training Program; Visit Provider Obstetrics & Gynecology | DX: Z34.80 Encounter for supervision of other normal pregnancy, unspecified trimester (principal) | CPT/HCPCS: 87081 ==

== ENCOUNTER 2022-05-12 04:55 | Inpatient (IN) | payer MEDICAID, SELFPAY ==
--- NOTE | 2022-05-11 19:56 | HP.PCM.OB_ITS ---
HPI - General HPI Narrative CANDE HENRY, is a 31 F who presents for RLTCS. Maternal Data Information YADIRA Calculator Estimated Delivery Date Method Current WG Current Estimate 05/13/22 LMP (Certain) 39w 5d Other Estimates 05/15/22 Ultrasound #1 39w 3d PFSH PFSH Medical History Depression GERD (gastroesophageal reflux disease) Thyromegaly Home Medications vits no.126-ferrous fum 28 mg iron-folic acid 800 mcg tablet (Classic ) 1 tab PO DAILY 90 days #90 tabs 06/02/21 [Rx Last Taken Unknown] ondansetron 4 mg disintegrating tablet 4 mg PO Q8H PRN PRN Nausea #10 tabs 02/01/22 [Rx Last Taken Unknown] famotidine 40 mg tablet (Pepcid) 40 mg PO QHS #30 tabs 04/17/22 [Rx Last Taken Unknown] metoclopramide HCl 5 mg tablet (Reglan) 5 mg PO QAC PRN nausea and vomiting #60 tabs 04/17/22 [Rx Last Taken Unknown] Allergy/AdvReac Type Severity Reaction Status Date / Time powder Allergy Mild rash Uncoded 05/08/22 09:22 tape Allergy Mild Rash Uncoded 05/08/22 09:22 Family History Mother Hypertension Thyroid disorder Surgical History History of cholecystectomy S/P Social History adopted: No household members: spouse and children number of children: 1 current occupational status: employed current occupation: [employer] pets and animals: Yes pets and animals: dog(s) Smoking Status: Former smoker alcohol intake: current details: occasionally/not while substance use type: does not use caffeine: Yes what type of physical activity do you participate in: none seatbelt use: always do you feel safe at home: Yes additional social history: -Julian (daughter Antonette from previous relationship) History 2 Elective abortions Hx Para 1 Spontaneous abortions Hx # Term Pregnancies Ectopic pregnancies Hx # Pregnancies Multiple births # of living children 1 Past Pregnancies Del. Date Name GA/Weeks Outcome Route Bth Weight Infant Gen Labor Lgth Anesthesia Del Locatn Provider FOB 12/10/12 Gris 40 live - full term Female [facility] Dr. Brian Jordan Delivery Date: 12/10/12 Last Updated by: Brandie Valentine Arrest of dilation at 7cm Visit Details Expected Delivery Route/Plan TOLAC patient counseled regarding risks/benefits of trial of labor versus repeat . ACOG/uptodate education given to patient. 68 % likelihood of success per calculator TOLAC consent form signed: Labor Preferences- CB/BF classes: no labor support person: Julian labor intervention preferences: [] pain management options preferred: epidural if needed cut cord/dad catch: catch only : yes PP control planned: discussed discussed possible routes of delivery and associated risks: [] special requests: [] Plans Covid status: unvaccinated Flu vaccine: unvaccinated Tdap vaccine: given Rhogam: NA LARC form signed: yes movement and labor precautions reviewed. Problem list reviewed and updated with the most current plan of care details and appropriate orders placed. Relevant counseling for the gestational age provided. Continue routine care and follow up unless otherwise noted in visit notes/problem list details OB Flowsheet Initial Weight: 206 lb Date -?-?-?-?-?-?-?-?-?-?-?-?- EGA Weight BP Urine Prot -?-?-?-?-?-?-?-?-?-?-?-?- Glucose FHR FuHt Pres Dilation -?-?-?-?-?-?-?-?-?-?-?-?- Effaced St Visit Note 10/09/21 -?-?-?-?-?-?-?-?-?-?-?-?- 9w 1d 208 lb 6 oz (+2 lb 6 oz) 116/70 -?-?-?-?-?-?-?-?-?-?-?-?- 168 -?-?-?-?-?-?-?-?-?-?-?-?- JV- CRL is consi stent with LMP 11/07/21 -?-?-?-?-?-?-?-?-?-?-?-?- 13w 2d 206 lb (+0 oz) 132/82 -?-?-?-?-?-?-?-?-?-?-?-?- -?-?-?-?-?-?-?-?-?--?-?-?- SM- no vb desmond lora reviewed labs discussed TOLAC 12/04/21 -?-?-?-?-?-?-?-?-?-?-?-?- 17w 1d 209 lb (+3 lb) 118/70 Negative -?-?-?-?-?-?-?-?-?-?-?-?- Negative 145 -?-?-?-?-?-?-?-?-?-?-?-?- MH-No Vb. Sanamaricarmen lora few flutters. Spouse to have genetic screen today. MFM US ordered 12/10/21 -?-?-?-?-?-?-?-?-?-?-?-?- 18w 0d 207 lb 8 oz (+1 lb 8 oz) 110/62 Negative -?-?-?-?-?-?-?-?-?-?-?-?- Negative 138 -?-?-?-?-?-?-?-?-?-?-?-?- -work in painf ul lesion right nipple noted yesterday. Drained white pus last pm. Exam noted erythema, crusted lesion on nipple at old piercing site. K eflex Rx'd. Warm compress. Good FM. 12/29/21 -?-?-?-?-?-?-?-?-?-?-?-?- 20w 5d 209 lb (+3 lb) 102/72 Negative -?-?-?-?-?-?-?-?-?-?-?-?- Negative 140 -?-?-?-?-?-?-?-?-?-?-?-?- SM- no vb lof go od fm no regular ctx 01/28/22 -?-?-?-?-?-?-?-?-?-?-?-?- 25w 0d 211 lb (+5 lb) 120/68 Negative -?-?-?-?-?-?-?-?-?-?-?-?- Negative 144 -?-?-?-?-?-?-?-?-?-?-?-?- JV- no lof, vagi nal bleeding, or dec fm. still has nipple abscess that grew strep F. s/p augmentin. will try pen V, warm compress and chlorhexadine wash daily. ultrasound neg. it is a very small nipple only abscess (5mm) but very painful 02/17/22 -?-?-?-?-?-?-?-?-?-?-?-?- 27w 6d 215 lb (+9 lb) 122/70 Negative -?-?-?-?-?-?-?-?-?-?-?-?- Negative 148 28 -?-?-?-?-?--?-?-?-?-?-?-?- MH-No VB, LOF. G ood FM. Enc to do 28 wk labs this week. Tdap and larc done. Needs f/u US yet. [facility] contacted and they will call patient. 03/02/22 -?-?-?-?-?--?-?-?-?-?-?-?- 29w 5d 214 lb (+8 lb) 122/84 Negative -?-?-?-?-?-?-?-?-?-?-?-?- Negative 140 31 -?-?-?-?-?-?-?-?-?-?-?-?- SM- no vb lof go od fm no regular ctx discussed TOLAC is psontaneous otherwise RLTCS on 05/12/22 03/20/22 -?-?-?-?-?-?-?-?-?-?-?-?- 32w 2d 216 lb 6 oz (+10 lb 6 oz) 118/72 Negative -?-?-?-?-?-?-?-?-?-?-?-?- Negative 147 33 -?-?-?-?-?-?-?-?-?-?-?-?- JV- no lof, vagi nal bleeding, or dec fm. having some bhavesh hays contractions only. 04/03/22 -?-?-?-?-?-?-?-?-?-?-?-?- 34w 2d 216 lb (+10 lb) 113/80 Negative -?-?-?-?-?-?-?-?-?-?-?-?- Negative 145 34 -?-?-?-?-?-?-?-?-?-?-?-?- JV- no lof, vagi nal bleeding, or dec fm. declines flu vaccine. 04/17/22 -?-?-?-?-?-?-?-?-?-?-?-?- 36w 2d 213 lb 4 oz (+7 lb 4 oz) 126/84 Negative -?-?-?-?-?-?-?-?-?-?-?-?- Negative 147 36 Cephalic 0 -?-?-?-?-?-?-?-?-?-?-?-?- JV- no lof, vagi nal bleeding, or dec fm. pepcid and reglan for nausea. 04/24/22 -?-?-?-?-?-?-?-?-?-?-?-?- 37w 2d 214 lb (+8 lb) 124/80 Negative -?-?-?-?-?-?-?-?-?-?-?-?- Negative 145 37 Cephalic 1 .5 -?-?-?-?-?-?-?-?-?-?-?-?- SM- no vb lof go od fm no regular ctx 05/01/22 -?-?-?-?-?-?-?-?-?-?-?-?- 38w 2d 221 lb 2 oz (+15 lb 2 oz) 126/62 Negative -?-?-?-?-?-?-?-?-?-?-?-?- Negative 135 37 Cephalic 1 .5 -?-?-?-?-?-?-?-?-?-?-?-?- 70 -2 JV- no lof , vaginal bleeding, or dec fm. labor precautions discussed. hoping for otherwise rpt section. 05/08/22 -?-?-?-?-?-?-?-?-?-?-?-?- 39w 2d 216 lb 8 oz (+10 lb 8 oz) 128/68 Negative -?-?-?-?-?-?-?-?-?-?-?-?- Negative 140 39 Cephalic 2 -?-?-?-?-?-?-?-?-?-?-?-?- 70 -2 JV- no lof , vaginal bleeding, or dec fm. plan for section on wednesday if no labor by then 05/12/22 -?-?-?-?-?-?-?-?-?-?-?-?- 39w 6d -?-?-?-?--?-?-?-?-?-?-?-?- -?-?-?-?-?-?-?-?-?-?-?-?- NST FHR Rate Baby A Baseline: 130 ROS Constitutional Constitutional: Reports systems reviewed and no addt'l complaints, except as documented Eyes Eyes: Denies change in vision ENT HEENT: Reports systems reviewed and no addt'l complaints, except as documented; Denies headache(s) Cardiovascular Cardiovascular: Reports systems reviewed and no addt'l complaints, except as documented; Denies chest pain or dyspnea Respiratory/Chest Respiratory/Chest: Reports systems reviewed and no addt'l complaints, except as documented Gastrointestinal Gastrointestinal: Reports systems reviewed and no addt'l complaints, except as documented; Denies abdominal pain Genitourinary Genitourinary: Reports systems reviewed and no addt'l complaints, except as documented, contractions Details: present (irregular) and movement Details: present; Denies dysuria or genital lesions Musculoskeletal Musculoskeletal: Reports systems reviewed and no addt'l complaints, except as documented Neurologic Neurologic: Reports systems reviewed and no addt'l complaints, except as documented Endocrine Endocrinology: Reports systems reviewed and no addt'l complaints, except as documented Physical Exam Const alert, oriented x3, no apparent distress and healthy appearing HEENT normocephalic and moist oral mucous membranes Head and Scalp: atraumatic Neck full ROM, no lymphadenopathy, supple and thyroid normal General: trachea midline Lymph Lymphatic: no lymphadenopathy noted Chest inspection of chest normal Resp normal respiratory effort Cardio regular rate GI normal to inspection, nondistended, normoactive bowel sounds, soft to palpation and non-tender Inspection: gravid external exam normal Manual OB Exam: estimated gestational size appropriate, presentation cephalic, dilated, effaced and station Extremity normal to inspection General Extremity: Negative for edema Skin no rashes or lesions noted Neuro no focal motor deficits and deep tendon reflexes 2+ bilaterally Motor Exam: strength 5/5 throughout and clonus absent Psych mental status grossly normal Labs Labs Labs: Blood Type O POSITIVE Antibody Screen NEGATIVE Hct 35.7 % (37-47) L Hgb 11.8 g/dL (12.0-15.0) L Pap Smear Negative Syphilis Total Ab Non-reactive VZV IgG Antibody < 135 index (Immune >165) L Rubella IgG Antibody Reactive (Nonreactive) Hep Bs Antigen Non-Reactive (Nonreactive) Chlamydia DNA (SHANDRA) Negative (Negative) Neisseria gonorrhoeae DNA (SHANDRA) Negative (Negative) HIV 1&2 Antibody Non-Reactive (Nonreactive) Glucose 1 Hr 50 gm 122 mg/dL (70-140) Miscellaneous Test Assessment & Plan (1) Screening for genetic disease carrier status: COMMENT: Carrier for silent carrier for alpha-thalassemia and 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 FOB tested 12/04/21 neg. for those but positive for 2 others (2) Marijuana use: COMMENT: + tox screen @ NOB; + 12/04/21; 02/17/22:+. (3) Obesity affecting : QUALIFIERS: Trimester: second trimester Qualified Code(s): O 99.212 - Obesity complicating , second trimester COMMENT: early gct nl (4) History of : COMMENT: discussed TOLAC if spontaneous, RLTCS scheduled for 05/12 @ 7:30am with SM HALIE consent signed 05/01/22 (5) Unknown varicella vaccination status: COMMENT: neg, plan avoidance and vaccination (6) Supervision of other normal : COMMENT: PRR YADIRA: 05/13/22. Amir boy PC:Gris. Spouse:Julian (Antonette- 13) (7) : QUALIFIERS: Weeks of gestation: 39 weeks Qualified Code(s): Z3A.39 - 39 weeks gestation of COMMENT: GBS Negative, anatomy nl, fu growth nl. reviewed results of carrier screen, NIPT low risk. declined afp screen. 02/23 growth nl, 03/23 nl growth PLAN: Plan plan RLTCS
[2022-05-12] VITALS (20 sets, daily range): BP systolic 100–126; BP diastolic 55–82; PULSE 62–93; RESP 13–22; TEMP 35.7–36.9; O2SAT 95–100; BMI 34.9
[2022-05-12] MEDS: Lactated Ringers 1,000 ML 999 ML IV (05:55)
[2022-05-12 05:58] LABS: Absolute Lymphocyte Count 2.61 X10^3/uL (0.83-4.51); Absolute Neutrophil Count 5.7 X10^3/uL (2.0-7.7); Basophil# 0.01 X10^3/uL; Basophil% 0.1 % (0-1); Eosinophil# 0.07 X10^3/uL; Eosinophils% 0.8 % (0-5); Hematocrit 34.5 % (37-47); Hemoglobin 11.4 g/dL (12.0-15.0); Lymphocyte # 2.61 X10^3/ul (0.83-4.51); Lymphocyte % 29.4 % (19-41); Mean Corpuscular Hgb 27.3 pg (27.0-32.0); Mean Corpuscular Volume 82.5 fL (81-99); Mean Platelet Vol. 10.2 fl (6.2-12.0); Monocyte# 0.51 X10^3/uL; Monocyte% 5.7 % (0-10); NRBC Flagged by Analyzer 0 % (0-5); Neutrophil # 5.66 X10^3/uL (2.7-7.7); Neutrophil % 63.7 % (47-70); Platelet Count 263 K/mm3 (150-450); RBC Distribution Width CV 13.5 % (11.6-14.6); RBC Distribution Width SD 39.9 fl (35.1-43.9); Red Blood Count 4.18 M/mm3 (4.2-5.4); White Blood Count 8.9 K/mm3 (4.4-11.0)
[2022-05-12] MEDS: Acetaminophen 500 MG Tablet 1000 MG PO ×4 (06:12→23:46)
--- NOTE | 2022-05-12 06:31 | NURSING ---
Reactive NST obtained. Fhr tracing did not save in connect. Paper copy reviewed and placed on chart.
[2022-05-12] MEDS: Lactated Ringers 1,000 ML 150 ML IV (06:37)
[2022-05-12 06:48] LABS: Amphetamine Urine VISTA NEGATIVE (<1000 ng/mL); Barbiturate Urine VISTA NEGATIVE (< 200 ng/mL); Benzodiazepine Urine VISTA NEGATIVE (< 200 ng/mL); Cocaine Urine VISTA NEGATIVE (< 300 ng/mL); Ecstacy Urine VISTA NEGATIVE (< 500 ng/mL); Methadone Urine VISTA NEGATIVE (< 300 ng/mL); PCP Urine VISTA NEGATIVE (< 25 ng/mL); THC Urine VISTA POSITIVE (< 50 ng/mL); Vista UDS pH Range 6
[2022-05-12] MEDS: Sodium Citrate/Citric Acid 30 ML UDC PO (07:08)
[2022-05-12] MEDS: Cefazolin 2 GM in 0.9% Normal Saline 100 ML IV (07:25)
[2022-05-12] MEDS: Lactated Ringers 1,000 ML 100 ML IV (08:30)
--- NOTE | 2022-05-12 08:41 | OP.PCM_ITS ---
Assessment & Plan (1) Screening for genetic disease carrier status: COMMENT: Carrier for silent carrier for alpha-thalassemia and 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 FOB tested 12/04/21 neg. for those but positive for 2 others (2) Marijuana use: COMMENT: + tox screen @ NOB; + 12/04/21; 02/17/22:+. (3) Obesity affecting : QUALIFIERS: Trimester: second trimester Qualified Code(s): O99.212 - Obesity complicating , second trimester COMMENT: early gct nl (4) History of : COMMENT: discussed TOLAC if spontaneous, RLTCS scheduled for 05/12 @ 7:30am with SM HALIE consent signed 05/01/22 (5) Unknown varicella vaccination status: COMMENT: neg, plan avoidance and vaccination (6) Supervision of other normal : COMMENT: PRR YADIRA: 05/13/22. Amir boy PC:Gris. Spouse:Julian (Antonette- 13) (7) : QUALIFIERS: Weeks of gestation: 39 weeks Qualified Code(s): Z3A.39 - 39 weeks gestation of COMMENT: GBS Negative, anatomy nl, fu growth nl. reviewed results of carrier screen, NIPT low risk. declined afp screen. 02/23 growth nl, 03/23 nl growth Maternal Data Information YADIRA Calculator Estimated Delivery Date Method Current WG Current Estimate 05/13/22 LMP (Certain) 39w 6d Other Estimates 05/15/22 Ultrasound #1 39w 4d Final YADIRA Source: LMP Details Operative Information Date of Procedure: 05/12/22 Pre-Operative Diagnosis: Previous Post-Operative Diagnosis: same Indications for : Repeat Elective Classification: Scheduled Type of Anesthesia: Spinal Special Medications: none Antibiotic Given: Ancef 2 grams IV x1 Drain: Velez to straight drain Estimated Blood Loss: 600 Fluids Replaced: crystalloid Findings Description of Procedure: Spinal anesthesia was placed without difficulty. Velez catheter was placed. The patient was placed in the dorsal supine position with leftward tilt. Patient was prepped and draped in the normal sterile fashion. Pfannenstiel skin incision was made with the scalpel and carried through to the underlying layer of fascia with the scalpel. Fascia was nicked in the midline and the incision extended laterally. The rectus bellies were dissected off superiorly and inferiorly with out complication both sharply and bluntly. The peritoneum was entered digitally. The incision was stretched and a low transverse uterine incision was made with the scalpel. The infant's head was delivered atraumatically followed by the anterior and posterior shoulders without complication the rest of the delivered. The cord was clamped and cut and the infant was handed off to awaiting nurse. The placenta was delivered spontaneously immediately following and was noted to be intact and have a three- vessel cord. The uterus was exteriorized cleared of all clots and debris, and the incision was closed in a double layer closure using #1 Monocryl. The ovaries and fallopian tubes were noted to be within normal limits. The uterus was returned to the maternal abdomen and gutters were cleared of all clots and debris. The peritoneum was closed with 3-0 Monocryl in a running fashion. Gloves were changed prior to fascial closure. Fascia was closed with 0 PDS in a running fashion. Subcutaneous tissue was copiously irrigated and the skin was closed with 3-0 Monocryl in a subcuticular fashion. Mepilex dressing was applied without complication. Patient was taken to recovery in stable condition. It was discussed with the patient that based on the clinical information obtained during this encounter, combined with her history, at this time I would recommend cesareans for future deliveries if further pregnancies are desired. Amniotic Membrane Rupture Type: Artificial Amniotic Fluid Description: Clear Placenta Disposition: [facility] Cord Vessel Description: 3 Vessels Cord Entanglement: None Delayed Cord Clamping: Yes Complications Risks of Surgery Discussed w/Patient: Bleeding, Infection, Need for Future C- Sections and Injury to surrounding structure(s) including bowel and bladder Vaginal Delivery Complication Complications: None Admit VTE Documentation VTE Present on Admission: No VTE Mechan Device Prophylaxis: SCD's Procedures Urinary/Genital [id number]: [id number] delivery+PP Care([facility])
--- NOTE | 2022-05-12 08:43 | DCINST_ITS ---
Discharge Instructions Diet Discharge Diet: No restrictions Activity Discharge Activity: Return to Normal Activity, May Drive (when pain free and off narcotic pain meds), May Shower and May Take a Tub Bath (in 4 weeks) May resume sexual activity in: 6 weeks Weight Bearing Status: Full weight bearing Lifting Restrictions: under 30 lbs for 6 weeks Dressing / Incision Call your doctor if your incision/area has: Continuous Slow Oozing, Sudden Increased Bleeding, Increased Pain/ Swelling, Increased Redness, Foul Smelling Discharge and - Call your doctor if you observe: Fever of 101 or Higher, Using more than 1 pad per hour, Shortness of breath, Chest pain and Uncontrolled pain Suture Line Care: Avoid Pulling/Pushing and Avoid Pinching/Bending Change Dressing in: 1 week (leave open to air after removed) Remove Dressing in: 1 week (if present) Cleanse incision/area with: Soap & Water and Keep Dressing Clean & Dry Follow Up Care Please Follow Up With: Arianna Torres MD When: Call to make an appointment with your doctor for a postop visit in 2 and 6 weeks. Test Results: Test results from this visit will be discussed in further detail at your follow- up appointment, if applicable. Discharge Plan Admission Admit Date/Time: 05/12/22 04:55 Attending Provider: Arianna Torres Primary Care Provider: Toby Fontaine Discharge Orders/Prescriptions Prescriptions: New oxycodone-acetaminophen [Percocet] 5-325 mg tablet 1 tab PO Q6H PRN (Reason: pain) 7 Days Qty: 20 0RF naproxen [naproxen] 500 mg tablet 500 mg PO BID PRN PRN (Reason: Pain) Qty: 30 1RF Continued metoclopramide HCl [Reglan] 5 mg tablet 5 mg PO QAC PRN (Reason: nausea and vomiting) Qty: 60 0RF Rx Instructions: administer 30 minutes before meals famotidine [Pepcid] 40 mg tablet 40 mg PO QHS Classic 28 mg iron- 800 mcg tablet 1 tab PO DAILY Referrals / Follow Up: Toby Fontaine DO [Primary Care Provider] - Disposition Disposition (needs filled in before D/C Order can be placed): Home, Self Care
[2022-05-12] MEDS: Ketorolac 30 MG/ML Syringe IV ×3 (09:17→21:14)
[2022-05-12] MEDS: Senna/Docusate Sodium 1 Tablet PO (12:48)
[2022-05-12] MEDS: Prenatal Vits Tablet 1 TABLET PO (12:49)
[2022-05-12] MEDS: 0.9% Saline Lock 10 ML Syringe IV ×2 (16:42→21:15)
[2022-05-12] MEDS: Famotidine 20 MG Tablet 40 MG PO (21:21)
[2022-05-13 03:50] VITALS: PULSE 71; RESP 18; TEMP 36.3; O2SAT 98
[2022-05-13] MEDS: Ketorolac 30 MG/ML Syringe IV (03:57)
[2022-05-13] MEDS: 0.9% Saline Lock 10 ML Syringe IV (03:57)
[2022-05-13 05:49] LABS: Hemoglobin 10.5 g/dL (12.0-15.0); Mean Corp Hgb Conc 33.9 g/dL (32-36); Mean Corpuscular Hgb 27.6 pg (27.0-32.0); Mean Corpuscular Volume 81.4 fL (81-99); Mean Platelet Vol. 10.2 fl (6.2-12.0); Platelet Count 250 K/mm3 (150-450); RBC Distribution Width CV 13.4 % (11.6-14.6); RBC Distribution Width SD 39.2 fl (35.1-43.9); Red Blood Count 3.81 M/mm3 (4.2-5.4); White Blood Count 10.3 K/mm3 (4.4-11.0)
[2022-05-13] MEDS: Acetaminophen 500 MG Tablet 1000 MG PO ×2 (06:25→13:04)
--- NOTE | 2022-05-13 07:52 | PCM.PN.OB ---
Subjective Subjective Patient doing well without complaints. Tolerating PO. Ambulating and voiding without difficulty. feeding well. Denies chest pain, shortness of breath, calf pain/swelling, fevers, chills, lightheadedness. Objective Data Objective Data Vital Signs: Vital Signs Temp Pulse Resp BP Pulse Ox O2 Del Method 97.4 F L 71 18 115/65 98 Room Air 05/13/22 03:50 05/13/22 03:50 05/13/22 03:50 05/12/22 23:55 05/13/22 03:50 05/13/22 03:50 Oxygen Delivery Method Room Air Weight: 216 lb 7.903 oz Body Mass Index (BMI) 34.9 Intake & Output: Intake and Output for Last 24 Hours 05/11/22 05/12/22 05/13/22 23:59 23:59 23:59 Intake Total 2867 / 2867 Output Total 900 / 900 Balance 1966 / 1966 Lab / Micro Data Result Diagrams: 05/13/22 05:35 Labs: Laboratory Results - last 24 hr 05/13/22 05:35: WBC 10.3, RBC 3.81 L, Hgb 10.5 L, Hct 31.0 L, MCV 81.4, MCH 27.6, MCHC 33.9, RDW Std Deviation 39.2, RDW Coeff of Jolanta 13.4, Plt Count 250, MPV 10.2 Micro: Microbiology 05/12/22 05:40 Nasal Secretion SARS-CoV-2 Antigen (Rapid) - Final ROS Constitutional Constitutional: Reports systems reviewed and no addt'l complaints, except as documented Cardiovascular Cardiovascular: Reports systems reviewed and no addt'l complaints, except as documented Respiratory/Chest Respiratory/Chest: Reports systems reviewed and no addt'l complaints, except as documented Gastrointestinal Gastrointestinal: Reports systems reviewed and no addt'l complaints, except as documented Physical Exam Const alert, oriented x3 and no apparent distress HEENT Head and Scalp: atraumatic Resp normal respiratory effort GI soft to palpation and non-tender Inspection: incision intact, healing well and drainage (none) Bimanual Exam - Vag & Uterus: uterus non-tender Uterus Palpation: uterus fundus firm (below Umbilicus) Assessment & Plan (1) delivery delivered: COMMENT: RLTCS LAKESHA boy Amir PLAN: Plan s/p LTCS PPD # 1 1. routine post care 2. breast feeding- support given 3. rh positive 4. rubella immune
[2022-05-13 08:32] VITALS: BP 119/77; PULSE 79; RESP 18; TEMP 36.2; O2SAT 97
[2022-05-13] MEDS: Senna/Docusate Sodium 1 Tablet PO (09:55)
[2022-05-13] MEDS: Prenatal Vits Tablet 1 TABLET PO (09:55)
[2022-05-13] MEDS: Naproxen 500 MG Tablet PO (09:55)
--- NOTE | 2022-05-13 13:00 | CASEMGMT ---
Social Work Assessment Labor and Delivery Unit Patient Address: [address] [place] [address] [address] [place] [address] Phone number:[phone] Date of Referral: 05.12.2022 Time of Referral: [phone] Referred By: Dr. Torres Date of Intervention: 05.13.2022 Time of Intervention: Approximately [id number] Reason for Referral: Mental Health, History of THC use History obtained from: medical records and mother of baby (MOB) Selam Fitzpatrick; father of baby (FOB) Julian Fitzpatrick present for most of conversation. Household composition: MOB, FOB, and older daughter. to reside in this home. Home situation is reported as safe and adequate. Patient's parent/guardian status: MOB is a 30 year old female, to the FOB a 31 year old male. During private conversation, MOB denied any form of abuse, control, intimidation by this FOB. MOB and FOB now have 2 children together: Gris (12.10.2012) and boy Amir (05.12.2022). Medical History: MOB is G2, P1 to 2 after delivering Amir. care started at 9 weeks gestation and regular thereafter. 9 and 9 at 1 and 5 minutes of life. 39 weeks gestation at time of Educational Status: MOB graduated high school and denies any issues with reading, writing, or learning comprehension. Financial Status: MOB is employed at [employer]. and FOB at [employer]. No reported issues with finances or meeting basic needs for the household. Supplies: Parent reports to have all supplies for baby including safe sleep spaces for baby, car seat, clothing, diapers, wipes, and MOB is breast feeding. Has a breast pump. Childcare/Caregiver(s): MOB's sister provides childcare when MOB and FOB are working. Transportation: No reported concerns, both parents drive. Programs/Agencies Involved: S for food and medical. Aware of WIC. Declines referral to [facility] or [facility]. No other agency involvement reported. Will use Dr. Elaine for pediatric follow up. Children Services/Legal Issues: MOB denies any legal issues for self. FOB reports history of DUI, but nothing current is reported. Parents deny any current or past involvement with children services. Behavioral Health Issues: Mental Health History: MOB reports history of some depression on and off, as well as anxiety. No treatment history. [place] Depression screen a score of 7, falling into the range of depression not likely present. MOB did indicate thoughts of harming myself have occurred to me. MOB reports has had thoughts in the past of feeling overwhelmed and not wanting to be here anymore when feeling anxiety. MOB denies any planning, intent, attempts regarding suicide. MOB reports thoughts are fleeting. MOB reports last time thought of this was a couple of months ago. Coping skills and self care discussed. Substance Use History: MOB reports history of drinking alcohol, but not in . No reports of alcohol misuse issues. MOB reports use of marijuana, per the chart for the last couple of years. MOB reports was not using marijuana when daughter was born 9 years ago. MOB reports marijuana helped with anxiety and with nausea. Reports quit use about 1 month ago as reported children are more important than marijuana. Family History: FOB reports history of marijuana use, but quit a couple of years ago after getting a DUI. FOB reports alcohol use has been reduced and is now free of alcohol for the last 1.5 weeks. Drug Screens: Maternal drug screens positive for marijuana on 10.09.2021, 5.., 8.9., and 11... 's urine negative. Meconium is pending. Family/Social Stressors: None reported at this time. Support Systems: MOB reports good support from the FOB and from family. FOB will be off of work for a week to help MOB and infant transition home. Depression/Shaken Baby/Safe Sleeping : Reviewed shaken baby prevention, safe sleeping, and perineal mood and anxiety disorders with both parents. Reviewer PPD/PPA risk factors and that both moms and dads could develop mood/anxiety complications. ASSESSMENT: Met with MOB and FOB, introducing to self and social work role. MOB and FOB both cooperative, pleasant, and willing to speak to social sciences research scientist. FOB interactive in assessment, answering questions, even at times speaking at same time as MOB. When this expert medical writer would look only at MOB, FOB was more quiet and appearing respectful to MOB's input. MOB and FOB reports to have necessary supplies to care for baby, no issues with basic needs, and FOB will be off of work for a week to help MOB and baby at home. Addressed with parent whether either had substance use history or issues. MOB acknowledged marijuana use in with cessation about a month ago. FOB shared spontaneously history of alcohol dependence issues with no alcohol in a week and a half; no marijuana in a couple of years. Talked with MOB about [place] Act and mandate to notify children services to exposure in utero. Offered opportunities to ask questions. MOB and FOB remained polite and cooperative, open to conversation. During private conversation with MOB, MOB talkative and discussed anxiety. Denies any intent to or plans for suicide. Reports to have a nevarez and connection with new baby. MOB accepted information on mood and anxiety disorders, resources for such, and [facility] Resource list of local foster care social worker agencies. MOB declined referrals to [facility] or S at this time. No voiced concerns by staff regarding parent/child interactions or bonding. Safe Plan of Care for infant related to substance use: MOB plans to continue to abstain from marijuana use, especially while breast feeding. In the future,should abstinence status change use would be away from kids, locked up, and and a sober person to care for children. PLAN: MOB and infant to home. Resource information given for home going. Will call [facility] and reported infant exposure to marijuana in utero and other potential risk factors identified during assessment, but no reason to hold up family's discharge today. -BLADIMIR Anderson MSW
[2022-05-13] MEDS: FLU VACC QS2022-23(6MOS UP)/PF 60 MCG/0.5 ML SYRINGE IM (13:03)
[2022-05-13 13:09] VITALS: BP 126/86; PULSE 79; RESP 18; TEMP 36.4
== END 2022-05-13 14:00 | disposition home or self-care (01) | DRG 540 ==
PROVIDERS: Admitting Provider Obstetrics & Gynecology; PCP Student in an Organized Health Care Education/Training Program; Visit Provider Obstetrics & Gynecology
PROC: 10D00Z1 Extraction of Products of Conception, Low, Open Approach (ICD-10-PCS; CPT 59514; principal; 2022-05-12 07:15)
DX: O34.219 Maternal care for unspecified type scar from previous cesarean delivery (principal); O99.324 Drug use complicating childbirth; F12.90 Cannabis use, unspecified, uncomplicated; Z3A.39 39 weeks gestation of pregnancy; Z87.891 Personal history of nicotine dependence; Z37.0 Single live birth; O99.214 Obesity complicating childbirth; E66.8 Other obesity
CPT/HCPCS: 59025; 59050; 80307; 85025; 85027; 86850; 86900; 86901; 87426; 99218; J7120; 90686; A4216; G0378; J2405

== ENCOUNTER → 2023-06-25 | Outpatient (CLI) | payer MEDICAID, SELFPAY ==
[2023-06-25 13:14] LABS: T4 Free Direct 1.27 ng/dL (0.76-1.46); Thyroid Stim Hormone (TSH) 0.46 uIU/mL (0.358-3.74)
[2023-06-27 08:08] LABS: Thyroid Peroxidase AB < 9 IU/mL (0-34)
== END | disposition home or self-care (01) ==
LOC: LAB 11:58
PROVIDERS: PCP Student in an Organized Health Care Education/Training Program; Referring Provider Obstetrics & Gynecology; Visit Provider Obstetrics & Gynecology
DX: E01.0 Iodine-deficiency related diffuse (endemic) goiter (principal)
CPT/HCPCS: 36415; 84439; 84443; 86376

== ENCOUNTER → 2023-07-19 | Outpatient (CLI) | payer MEDICAID, SELFPAY ==
--- NOTE | 2023-07-19 12:28 | US_ITS ---
INDICATION: thyromegaly EXAMINATION: Ultrasound US Thyroid (eg thyroid, parathyroid, parotid) TECHNIQUE: Amaro scale and color doppler imaging was performed of the thyroid gland. COMPARISON: No relevant prior comparison study available FINDINGS: RIGHT THYROID LOBE: 1.9 x 5.4 x 2.0 cm. Homogeneous echotexture with normal vascularity. [No thyroid nodules are present. LEFT THYROID LOBE: 1.8 x 4.5 x 1.7 cm. Homogeneous echotexture with normal vascularity. [No thyroid nodules are present. ISTHMUS: 0.36 cm. No thyroid nodules are present. US/Thyroid IMPRESSION: Enlarged thyroid gland. No discrete nodules identified. Electronically Signed: Pam Rhodes MD at 14:44 EST ,
--- OUTSIDE RECORDS SUMMARY | 2023-07-19 12:43 | XMS RPT_ITS | CCD ---
Author Name Unknown Address [address] [place] [address] Organization [facility] Care Team Providers Care Attic Blower Name Role Phone TOBY FONTAINE Primary Care Unavailable RIVERA STEWART Attending Unavailable SYLWIA, LUDWIN S Referring Unavailable GILMER AMOR Attending Unavailable TOBY FONTAINE Primary Care Unavailable SYLWIA, LUDWIN S Referring Unavailable SYLWIA, LUDWIN S Referring Unavailable GILMER AMOR Attending Unavailable TOBY FONTAINE Primary Care Unavailable GILMER AMOR Attending Unavailable TOBY FONTAINE Primary Care Unavailable SYLWIA, LUDWIN S Referring Unavailable Toby Fontaine DO Primary Care Provider TOBY FONTAINE Primary Care Unavailable TOBY FONTAINE Referring Unavailable TOBY FONTAINE Primary Care Unavailable TOBY FONTAINE Attending Unavailable BABATUNDE ELIZONDO Attending Unavailable TOBY FONTAINE Primary Care Unavailable TOBY FONTAINE Primary Care Unavailable Allergies Allergy Classification Reported Allergen(s) Allergy Type Date of Onset Reaction(s) Facility (3 sources) Latex; Translations: [LATEX] Drug Allergy 12-22-2022 Rash [facility] Work Phone: Medications Current Medications Medication Drug Class(es) Dates Sig (Normalized) Sig (Original) phentermine hydrochloride 37.5 mg oral tablet (2 sources) Sympathomimetic Amine Anorectic Start: 06-16-2023 End: 07-16-2023 take 1 tablet by mouth once daily before breakfast Phentermine HCl (ADIPEX-P) 37.5 mg tablet Indications: Obesity, Class II, BMI 35-39.9 Take 1 tablet by mouth daily before breakfast for 30 days. BMI 36.10 30 tablet 2 06/16/2023 07/16/2023 Active Completed/Discontinued Medications Medication Drug Class(es) Dates Sig (Normalized) Sig (Original) cefTRIAXone 500 mg injection (1 source) Cephalosporin Antibacterial Start: 12-10-2022 End: 12-10-2022 cefTRIAXone 500 mg intramuscular injection (ROCEPHIN) cholecalciferol 1.25 mg oral capsule (1 source) Vitamin D Start: 06-30-2023 take 1 capsule by mouth every week cholecalciferol, Vitamin D3, (VITAMIN D3) 1,250 mcg (50,000 unit) cap capsule Indications: Vitamin D deficiency Take 1 capsule by mouth one time a week. 4 capsule 2 06/30/2023 Active Problems Active Problems Problem Classification Problem Date Documented Date Episodic/Chronic Administrative/socia l admission (1 source) Patient encounter status; Translations: [Persons encountering health services in other specified circumstances] Episodic Esophageal disorders (9 sources) Gastroesophageal reflux disease; Translations: [Gastro-esophageal reflux disease without esophagitis] Onset: 05-02-2014 05-02-2014 Chronic Immunizations and screening for infectious disease (2 sources) Contact with and (suspected) exposure to infections with a predominantly sexual mode of transmission; Translations: [Contact with or exposure to venereal diseases] Episodic Mood disorders (4 sources) Depressive disorder; Translations: [Depression] Onset: 01-25-2014 01-25-2014 Chronic Nutritional deficiencies (1 source) Vitamin D deficiency; Translations: [Vitamin D deficiency, unspecified] 06-30-2023 Chronic Other endocrine disorders (4 sources) Polycystic ovary syndrome; Translations: [Polycystic ovarian syndrome] Onset: 03-21-2015 03-21-2015 Chronic Other nutritional; endocrine; and metabolic disorders (4 sources) Obesity; Translations: [Obesity, unspecified] Onset: 05-02-2014 05-02-2014 Chronic Other nutritional; endocrine; and metabolic disorders (3 sources) Obese class II; Translations: [Obesity, unspecified] Onset: 06-16-2023 06-16-2023 Chronic Thyroid disorders (4 sources) Goiter; Translations: [Iodine-deficiency related diffuse (endemic) goiter] Onset: 01-25-2014 01-25-2014 Chronic Past or Other Problems Problem Classification Problem Date Documented Da te Episodic/Chronic Allergic reactions (4 sources) Eczema; Translations: [Dermatitis, unspecified] Onset: 09-25-2019 09-25-2019 Episodic Cancer of cervix (4 sources) Atypical squamous cells of undetermined significance on cervical Papanicolaou smear; Translations: [Atypical squamous cells of undetermined significance on cytologic smear of cervix (ASC-US)] Onset: 03-18-2016 03-18-2016 Episodic Other connective tissue disease (4 sources) Muscle pain; Translations: [Myalgia, unspecified site] Onset: 09-25-2019 09-25-2019 Episodic Spondylosis; intervertebral disc disorders; other back problems (4 sources) Low back pain; Translations: [Low back pain] Onset: 05-02-2014 05-02-2014 Episodic Results Test Name Value Interpretation Reference Range Facil ity Vital Signs Date Time Vital Sign Value Performing Clinician Faci lity 06-16-2023 08:06-0500 Body height 170 cm Toby Fontaine DO Work Phone: [facility] 06-16-2023 08:06-0500 Body temperature 97.81 [degF] Toby Fontaine DO Work Phone: [facility] 06-16-2023 08:06-0500 Body weight 104.33 kg Toby Fontaine DO Work Phone: [facility] 06-16-2023 08:06-0500 Diastolic blood pressure 82 mm[Hg] Toby Fontaine DO Work Phone: [facility] 06-16-2023 08:06-0500 Heart rate 80 /min Toby Fontaine DO Work Phone: [facility] 06-16-2023 08:06-0500 Respiratory rate 16 /min Toby Fontaine DO Work Phone: [facility] 06-16-2023 08:06-0500 Systolic blood pressure 120 mm[Hg] Toby Fontaine DO Work Phone: [facility] 12-10-2022 08:45-0400 Body temperature 97.81 [degF] Katharine Moses PA Work Phone: [facility] 12-10-2022 08:45-0400 Body weight 105.05 kg Krislyn Aberegg PA Work Phone: [facility] 12-10-2022 08:45-0400 Diastolic blood pressure 100 mm[Hg] Krislyn Aberegg PA Work Phone: [facility] 12-10-2022 08:45-0400 Heart rate 88 /min Krislyn Aberegg PA Work Phone: [facility] 12-10-2022 08:45-0400 Respiratory rate 22 /min Krislyn Aberegg PA Work Phone: [facility] 12-10-2022 08:45-0400 SaO2% (BldA) [Mass fraction] 98 % Krislyn Aberegg PA Work Phone: [facility] 12-10-2022 08:45-0400 Systolic blood pressure 130 mm[Hg] Krislyn Aberegg PA Work Phone: [facility] Encounters Encounter Date Encounter Type Care Provider Facility Start: 06-30-2023 Telephone encounter Toby araujo DO Work Phone: [facility] Start: 06-17-2023 End: 06-18-2023 ambulatory TOBY FONTAINE Facility:[facility] Start: 06-16-2023 Encounter for cortney l adult medical examination without abnormal findings TOBY FONTAINE [facility] Start: 06-16-2023 End: 06-16-2023 ambulatory TOBY FONTAINE Facility:[facility] Start: 06-16-2023 End: 06-16-2023 Patient encounter procedure Toby Fontaine DO Work Phone: [facility] Procedures Date Procedure Procedure Detail Performing Clinician Start: 06-16-2023 INFLUENZA VACCINE, A GE 6 MO - 64 YR, QUADRIVALENT (AFLURIA, FLULAVAL, FLUZONE) Toby Fontaine DO Work Phone: Plan of Treatment Date Care Activity Detail Author Start: 02-18-2032 Urine microalbumin profile DTa P,Tdap,Td Vaccine (3 - Td or Tdap) [facility] Start: 04-14-2031 Urine microalbumin profile DTA P,TDAP,TD (2 - Td or Tdap) [facility] Start: 06-16-2024 Covid-19 Vaccine (#1) Covid-19 Vacci ne (#1) [facility] Immunizations Immunization Date Immunization Notes Care Provider Poly lawsonyara 06-16-2023 influenza, injectabl e, quadrivalent, contains preservative Toby Zhen DO Work Phone: [facility] Work Phone: 10-23-2020 tetanus toxoid, redu shen diphtheria toxoid, and acellular pertussis vaccine, adsorbed Krislyn Aberegg PA Work Phone: [facility] Work Phone: 06-23-2019 influenza, injectabl e, quadrivalent, contains preservative Krislyn Aberegg PA Work Phone: [facility] Work Phone: 05-04-2018 influenza, injectabl e, quadrivalent, contains preservative Krislyn Aberegg PA Work Phone: [facility] Work Phone: 04-15-2016 influenza, injectabl e, quadrivalent, contains preservative Krislyn Aberegg PA Work Phone: [facility] Work Phone: 06-28-2015 influenza, injectabl e, quadrivalent, contains preservative Krislyn Aberegg PA Work Phone: [facility] 05-02-2014 influenza, seasonal, injectable Krislyn Aberegg PA Work Phone: [facility] 04-29-2012 influenza virus vaccine, unspecified formulation Krislyn Aberegg PA Work Phone: [facility] Payers Date Payer Category Payer Medicaid [employer] [employer] [id number] 2022-[facility] [phone] [place] [address] [id number] Medicaid [id number] 2022 Unknown [id number] 1991 Unknown [id number] 1991 Unknown [id number] 1991 Unknown [id number] 1991 Unknown [id number] Social History Date Type Detail Facility Start: 12-10-2022 [facility] End: 03-15-2012 History of tobacco use Current smoker [facility] End: 03-15-2012 History of tobacco use Cigarette Smoker [facility] Start: 12-10-2022 Tobacco use and exposure Smoke less tobacco non-user [facility] Start: 12-10-2022 End: 06-16-2023 Alcohol intake Current drinker of alcohol (finding) [facility] Start: 11-22-2020 History SDOH Alcohol Frequency 3 [facility] Start: 11-22-2020 History SDOH Alcohol Std Drinks 2 [facility] Start: 11-22-2020 History SDOH Social Connections Phone 5 [facility] Start: 11-22-2020 History SDOH Social Connections Jew 98 [facility] Start: 11-22-2020 History SDOH Social Connections Meetings 1 [facility] Start: 11-22-2020 Education 12 [facility] Start: 05-06-2016 Alcohol Comment weekends [facility] Start: 1990 Sex Assigned At Female C [facility] Start: 12-22-2022 End: 06-16-2023 History of Social function [facility] Start: 12-22-2022 End: 06-16-2023 [facility] Utilities [facility] Has the [employer], [employer], or water [employer] threatened to shut off services in your home in past 12Mo No [facility] Are you now , , , , never or living with a partner? [facility] How often to you hav e a drink containing alcohol? 2-4 times a month [facility] How many standard dr inks containing alcohol do you have on a typical day? 1 or 2 [facility] How often do you hav e 6 or more drinks on 1 occasion? Less than monthly [facility] How hard is it for y ou to pay for the very basics like food, housing, medical care, and heating Patient refused [facility] Do you feel stress - tense, restless, nervous, or anxious, or unable to sleep at night because your mind is troubled all the time - these days [OSQ] Only a little [facility] (I/We) worried charly er (my/our) food would run out before (I/we) got money to buy more. Never true [facility] The food that (I/we) bought just didn't last, and (I/we) didn't have money to get more. Sometimes true [facility] Start: 07-22-2021 Gender identity Identifies as female gender (finding) [facility] Start: 07-22-2021 Sexual orientation Heterosexual (emelyn delarosa) [facility] Clinical Notes 02-18-2015 to 06-30-2023 Telephone Encounter - Flor Huff LPN - 06/30/2023 10:22 AM ESTTelephone Encounter - Toby Fontaine DO - 06/30/2023 7:02 AM Toby Edwards DO - 06/16/2023 8:12 AM EST Note Date & Type Note Facility 06-30-2023 Miscellaneous Notes Patient notified and voiced her understanding. Please inform patient that her labs are showing that her vitamin D3 levels are very low. Needs to start supplement as below and recheck labs in 3 months Toby Fontaine DO documented in this encounter [facility] 06-16-2023 Note HNO ID: [id number] Author: Toby Fontaine DO Service: ? Author Type: Physician Type: Progress Notes Filed: 06/16/2023 10:48 AM Note Text: CC: Selam Fitzpatrick is a 33 year old female who presents to the office for physical HPI: Overall she is doing well. Has had some fatigue symptoms. Mood, stable, no concerns She is post from of her 2nd child, son Fernandez, whom is now 1 year old Obesity, wanting to work on weight loss. Has been trying to cut down on her sugars and starches in her diet. Struggling to cut back on portions. Would be interested in a weight loss medication PAST MEDICAL HISTORY Diagnosis Date Atypical squamous cells of undetermined significance (ASCUS) on Papanicolaou smear of cervix 03/18/2016 Chlamydia 2010 Depression 01/25/2014 PCOS (polycystic ovarian syndrome) Thyromegaly 01/25/2014 PAST SURGICAL HISTORY Procedure Laterality Date DELIVERY ONLY 12/10/12 , low transverse Social History: Social History Tobacco Use Smoking status: Former Years: 1 Types: Cigarettes Quit date: 03/15/2012 Years since quittin.2 Smokeless tobacco: Never Substance Use Topics Alcohol use: Yes Comment: weekends Drug use: No FAMILY HISTORY Problem Relation Age of Onset Hypertension Mother Thyroid Mother Current Outpatient prescriptions: cyclobenzaprine (FLEXERIL) 10 mg tablet Take 1 tablet by mouth three times daily as needed for muscle spasm. naproxen (NAPROSYN) 500 mg tablet Take 1 tablet by mouth twice daily as needed (pain/inflammation, take with food.). lactobacillus combination no.4 (PROBIOTIC) 3 billion cell cap Take 1 capsule by mouth once daily. pantoprazole DR (PROTONIX) 40 mg tablet Take 1 tablet by mouth once daily. Allergies: ALLERGIES Allergen Reactions Latex Rash ROS: See HPI PE: 06/16/23 0806 BP: 120/82 Pulse: 80 Resp: 16 Temp: 36.6 ?C (97.8 ?F) TempSrc: Left Tympanic Weight: 104.3 kg (230 lb) Height: 170 cm (5' 6.93 ) Gen: AANDO, NAD, non-toxic appearing, Pleasant, cooperative HEENT: NT/AC, PERRLA, EOMs intact b/l, nares clear and patent b/l, pharynx without erythema, exudate or lesions. Uvula midline. EACs without erythema or debris. TMs pearly leyva with intact landmarks b/l. Neck: supple, No cervical LAD, no thyromegaly, no carotid bruits CV: RRR, normal S1 and S2, no murmurs, no gallops, no rubs, Pulses 2+ and symmetric in UE and LE b/l Lungs: normal respiratory effort, CTA b/l, no wheezing or rhonchi or rales Abd: soft, NT, ND, +BS, no hepatosplenomegaly MS: FROM all 4 extremities Neuro: CN II-XII intact b/l, strength 5/5 b/l UE and LE, DTRs 2/4 UE and LE, sensation intact. Skin: warm, dry, intact, No rashes or lesions on exposed skin Central obesity No edema, normal pulses ASSESSMENT/PLAN: 1. Well adult exam - ICD9: V70.0, ICD10: Z00.00 (primary diagnosis) - Counseled on healthy diet and regular exercise - Calcium intake with supplements or by diet of 1000 mg/day for under 50, 3925-3942 mg/day for 50+ - Discussed need and benefit for weight loss. BMI 36.10 kg/(m2) - CBC + DIFF - COMP METABOLIC PANEL - LIPID PANEL, NONFASTING - TSH BLD - IRON + TIBC - T4 FREE/FREE THYROX - T3 FREE BLD - HGB A1C - VITAMIN D 25 HYDROXY - VITAMIN B12 BLOOD 2. Gastroesophageal reflux disease with esophagitis, unspecified whether hemorrhage - ICD9: 530.11, ICD10: K21.00 - Discussed lifestyle modifications including losing weight, limiting caffeine, no meals three hours before sleep, and head of bed elevation - PANTOPRAZOLE 40 MG TABLET,DELAYED RELEASE 3. Need for influenza vaccination - ICD9: V04.81, ICD10: Z23 - INFLUENZA VACCINE, AGE 6 MO - 64 YR, QUADRIVALENT (AFLURIA, FLULAVAL, FLUZONE) 4. Obesity, Class II, BMI 35-39.9 - ICD9: 278.00, ICD10: E66.9 - Lengthy discussion in office today regarding diet and exercise. Discussed use of small plate to eat meals from, drink 1 glass of water 10-15 minutes prior to eating meal, drink 8 glasses of water daily, eat fresh fruit and vegetable during meal first then lean protein such as grilled/baked chicken breast or fish, limit carbohydrate intake (less pasta, breads, rice and snack foods) as well as limiting sugars (desserts etc). Important to count / track your calories and exercise as well. - start on medication, she is aware of SE with medication, f/u in 3 months in office - PHENTERMINE 37.5 MG TABLET Toby Fontaine DO To ER if develops chest pain, shortness of breath, or severe worsening of symptoms. Discussed risks, benefits, alternatives, and potential side effects of medications. Patient expressed understanding and agreed with the plan. Toby Fontaine DO [address] [place] [address] [facility] 06-16-2023 History of Present illness Narrative CC: Selam Fitzpatrick is a 33 year old female who presents to the office for physical HPI: Overall she is doing well. Has had some fatigue symptoms. Mood, stable, no concerns She is post from of her 2nd child, son Fernandez, whom is now 1 year old Obesity, wanting to work on weight loss. Has been trying to cut down on her sugars and starches in her diet. Struggling to cut back on portions. Would be interested in a weight loss medication PAST MEDICAL HISTORY Diagnosis Date Atypical squamous cells of undetermined significance (ASCUS) on Papanicolaou smear of cervix 03/18/2016 Chlamydia 2010 Depression 01/25/2014 PCOS (polycystic ovarian syndrome) Thyromegaly 01/25/2014 PAST SURGICAL HISTORY Procedure Laterality Date DELIVERY ONLY 12/10/12 , low transverse Social History: Social History Tobacco Use Smoking status: Former Years: 1 Types: Cigarettes Quit date: 03/15/2012 Years since quittin.2 Smokeless tobacco: Never Substance Use Topics Alcohol use: Yes Comment: weekends Drug use: No FAMILY HISTORY Problem Relation Age of Onset Hypertension Mother Thyroid Mother Current Outpatient prescriptions: cyclobenzaprine (FLEXERIL) 10 mg tablet Take 1 tablet by mouth three times daily as needed for muscle spasm. naproxen (NAPROSYN) 500 mg tablet Take 1 tablet by mouth twice daily as needed (pain/inflammation, take with food.). lactobacillus combination no.4 (PROBIOTIC) 3 billion cell cap Take 1 capsule by mouth once daily. pantoprazole DR (PROTONIX) 40 mg tablet Take 1 tablet by mouth once daily. Allergies: ALLERGIES Allergen Reactions Latex Rash ROS: See HPI PE: 06/16/23 0806 BP: 120/82 Pulse: 80 Resp: 16 Temp: 36.6 C (97.8 F) TempSrc: Left Tympanic Weight: 104.3 kg (230 lb) Height: 170 cm (5' 6.93 ) Gen: A&O, NAD, non-toxic appearing, Pleasant, cooperative HEENT: NT/AC, PERRLA, EOMs intact b/l, nares clear and patent b/l, pharynx without erythema, exudate or lesions. Uvula midline. EACs without erythema or debris. TMs pearly leyva with intact landmarks b/l. Neck: supple, No cervical LAD, no thyromegaly, no carotid bruits CV: RRR, normal S1 and S2, no murmurs, no gallops, no rubs, Pulses 2+ and symmetric in UE and LE b/l Lungs: normal respiratory effort, CTA b/l, no wheezing or rhonchi or rales Abd: soft, NT, ND, +BS, no hepatosplenomegaly MS: FROM all 4 extremities Neuro: CN II-XII intact b/l, strength 5/5 b/l UE and LE, DTRs 2/4 UE and LE, sensation intact. Skin: warm, dry, intact, No rashes or lesions on exposed skin Central obesity No edema, normal pulses ASSESSMENT/PLAN: 1. Well adult exam - ICD9: V70.0, ICD10: Z00.00 (primary diagnosis) - Counseled on healthy diet and regular exercise - Calcium intake with supplements or by diet of 1000 mg/day for under 50, 5348-1151 mg/day for 50+ - Discussed need and benefit for weight loss. BMI 36.10 kg/(m^2) - CBC + DIFF - COMP METABOLIC PANEL - LIPID PANEL, NONFASTING - TSH BLD - IRON + TIBC - T4 FREE/FREE THYROX - T3 FREE BLD - HGB A1C - VITAMIN D 25 HYDROXY - VITAMIN B12 BLOOD 2. Gastroesophageal reflux disease with esophagitis, unspecified whether hemorrhage - ICD9: 530.11, ICD10: K21.00 - Discussed lifestyle modifications including losing weight, limiting caffeine, no meals three hours before sleep, and head of bed elevation - PANTOPRAZOLE 40 MG TABLET,DELAYED RELEASE 3. Need for influenza vaccination - ICD9: V04.81, ICD10: Z23 - INFLUENZA VACCINE, AGE 6 MO - 64 YR, QUADRIVALENT (AFLURIA, FLULAVAL, FLUZONE) 4. Obesity, Class II, BMI 35-39.9 - ICD9: 278.00, ICD10: E66.9 - Lengthy discussion in office today regarding diet and exercise. Discussed use of small plate to eat meals from, drink 1 glass of water 10-15 minutes prior to eating meal, drink 8 glasses of water daily, eat fresh fruit and vegetable during meal first then lean protein such as grilled/baked chicken breast or fish, limit carbohydrate intake (less pasta, breads, rice and snack foods) as well as limiting sugars (desserts etc). Important to count / track your calories and exercise as well. - start on medication, she is aware of SE with medication, f/u in 3 months in office - PHENTERMINE 37.5 MG TABLET Toby Fontaine DO To ER if develops chest pain, shortness of breath, or severe worsening of symptoms. Discussed risks, benefits, alternatives, and potential side effects of medications. Patient expressed understanding and agreed with the plan. Toby Fontaine DO [address] [place] [address] documented in this encounter [facility] 12-22-2022 Note HNO ID: [id number] Author: Babatunde Elizondo APRN.EMBOSSING UNIT OPERATOR Service: ? Author Type: Nurse Practitioner Type: Progress Notes Filed: 12/22/2022 9:55 AM Note Text: SUBJECTIVE Selam Fitzpatrick is a 32 year old female here today for a check up on her medical problems. Chief Complaint Patient presents with: Recheck: Express care visit on 12/10/2022 MELISSA Fitzpatrick is a 32 year old female established patient of Dr. Fontaine who presents today for EC follow up. Seen in our EC 12/10/2022 for a diagnosis of exposure to gonorrhea, wanted STD testing. Swabs were positive for gonorrhea, negative for chlamydia, yeast, and trichomonas. Treated in EC with rocephin injection. No symptoms, she denies any abdominal pain, nausea, vomiting, diarrhea. No pelvic pain, abnormal vaginal bleeding, and no vaginal discharge or odor. Partner was treated as well and retested negative. Has a baby boy, born in May, follows with media relations director for paps. Needs refills on some medications. Her medications were reviewed today and her list is now up to date. Medications Current Outpatient Medications Medication Sig cyclobenzaprine (FLEXERIL) 10 mg tablet Take 1 tablet by mouth three times daily as needed for muscle spasm. naproxen (NAPROSYN) 500 mg tablet Take 1 tablet by mouth twice daily as needed (pain/inflammation, take with food.). lactobacillus combination no.4 (PROBIOTIC) 3 billion cell cap Take 1 capsule by mouth once daily. pantoprazole DR (PROTONIX) 40 mg tablet Take 1 tablet by mouth once daily. No current facility-administered medications for this visit. ALLERGIES Allergen Reactions Latex Rash ACTIVE PROBLEM LIST Gerd With Esophagitis - 09/25/2019 Eczema - 09/25/2019 Myalgia - 09/25/2019 Atypical Squamous Cells of Undetermined Significance (Ascus) On Papanicolaou Smear of Cervix - 03/18/2016 Pcos (Polycystic Ovarian Syndrome) - 03/21/2015 Low Back Pain - 05/02/2014 Gerd (Gastroesophageal Reflux Disease) - 05/02/2014 Obesity - 05/02/2014 Depression - 01/25/2014 Thyromegaly - 01/25/2014 Social History Tobacco Use Smoking status: Former Years: 1.00 Types: Cigarettes Quit date: 03/15/2012 Years since quittin.7 Smokeless tobacco: Never Substance Use Topics Alcohol use: Yes Comment: weekends Drug use: No Review of Systems Genitourinary: Negative for genital sores, pelvic pain, vaginal bleeding, vaginal discharge and vaginal pain. OBJECTIVE BP 128/86 Pulse 104 Wt 229 lb (103.9kg) SpO2 98% LMP 12/10/2022 Physical Exam Vitals and nursing note reviewed. Constitutional: General: She is awake. She is not in acute distress. Appearance: Normal appearance. She is well-developed and well-groomed. She is not ill-appearing, toxic-appearing or diaphoretic. HENT: Head: Normocephalic. Right Ear: External ear normal. Left Ear: External ear normal. Nose: Nose normal. Eyes: General: Vision grossly intact. Conjunctiva/sclera: Conjunctivae normal. Pupils: Pupils are equal, round, and reactive to light. Neck: Vascular: No JVD. Trachea: Trachea normal. Cardiovascular: Rate and Rhythm: Normal rate and regular rhythm. Pulses: Normal pulses. Heart sounds: Normal heart sounds. No murmur heard. Pulmonary: Effort: Pulmonary effort is normal. No accessory muscle usage, prolonged expiration or respiratory distress. Breath sounds: Normal breath sounds. Musculoskeletal: Cervical back: Neck supple. Skin: General: Skin is warm and dry. Capillary Refill: Capillary refill takes less than 2 seconds. Neurological: General: No focal deficit present. Mental Status: She is alert and oriented to person, place, and time. Mental status is at baseline. Psychiatric: Attention and Perception: Attention and perception normal. Mood and Affect: Mood and affect normal. Speech: Speech normal. Behavior: Behavior normal. Behavior is cooperative. Thought Content: Thought content normal. Cognition and Memory: Cognition and memory normal. Judgment: Judgment normal. ASSESSMENT/PLAN: 1. Gonorrhea - ICD9: 098.0, ICD10: A54.9 (primary diagnosis) Treated in , no signs or symptoms, partner treated and testing negative. She would like tested to ensure GC infection resolved, would like urine test. - GC/CHLAMYDIA AMPLIF, URINE 2. Myalgia - ICD9: 729.1, ICD10: M79.10 - CYCLOBENZAPRINE 10 MG TABLET - NAPROXEN 500 MG TABLET 3. Gastroesophageal reflux disease with esophagitis, unspecified whether hemorrhage - ICD9: 530.11, ICD10: K21.00 - PROBIOTIC 3 BILLION CELL CAPSULE - PANTOPRAZOLE 40 MG TABLET,DELAYED RELEASE Portions of this note have been entered by ancillary staff. I have reviewed and when necessary edited, so that they are an adequate record of my encounter with this patient Please note that parts of this document were created using voice recognition software and therefore may contain grammatical errors. Patient verbalizes understanding of in (more content not included)... [facility] 12-10-2022 Note HNO ID: [id number] Author: EDVIN Hobbs Service: ? Author Type: Physician Boathouse Keeper Type: Progress Notes Filed: 12/10/2022 9:12 AM Note Text: This note was created using [employer]. Subjective Selam Fitzpatrick is a 32 year old female. HPI 32-year-old female presents for STD testing. Patient states that her recently tested positive for gonorrhea. She was advised to come in and be tested and treated. Patient denies any symptoms. No vaginal discharge or abnormal bleeding. No concern for . No abdominal pain, back pain, pelvic pain. No other complaints. PAST MEDICAL HISTORY Diagnosis Date Atypical squamous cells of undetermined significance (ASCUS) on Papanicolaou smear of cervix 03/18/2016 Chlamydia 2010 Depression 01/25/2014 PCOS (polycystic ovarian syndrome) Thyromegaly 01/25/2014 PAST SURGICAL HISTORY Procedure Laterality Date DELIVERY ONLY 12/10/12 , low transverse ALLERGIES Patient has no known allergies. MEDICATIONS cyclobenzaprine (FLEXERIL) 10 mg tabletTake 1 tablet by mouth three times daily as needed for Muscle Spasm.Disp: 30 tabletRfl: 11 naproxen (NAPROSYN) 500 mg tabletTake 1 tablet by mouth twice daily as needed (pain/inflammation, take with food.).Disp: 60 tabletRfl: 11 lactobacillus combination no.4 (PROBIOTIC) 3 billion cell capTake 1 capsule by mouth once daily.Disp: 30 capsuleRfl: [address] (PROTONIX) 40 mg tabletTake 1 tablet by mouth once daily.Disp: 30 tabletRfl: 5 FAMILY HISTORY Problem Relation Age of Onset Hypertension Mother Thyroid Mother Social History Tobacco Use Smoking status: Former Years: 1.00 Types: Cigarettes Quit date: 03/15/2012 Years since quittin.7 Smokeless tobacco: Never Substance Use Topics Alcohol use: Yes Comment: weekends Drug use: No Review of Systems Constitutional: Negative for chills and fever. HENT: Negative for congestion, ear pain and sore throat. Respiratory: Negative for cough and shortness of breath. Cardiovascular: Negative for chest pain. Gastrointestinal: Negative for diarrhea and vomiting. Genitourinary: Negative for frequency, hematuria, vaginal bleeding, vaginal discharge and vaginal pain. Objective BP 130/100 Pulse 88 Temp 36.6 ?C (97.8 ?F) Resp 22 Wt 105.1 kg (231 lb 9.6 oz) LMP 10/20/2020 (Exact Date) SpO2 98% BMI 37.38 kg/m? Physical Exam Vitals and nursing note reviewed. Constitutional: General: She is not in acute distress. Appearance: Normal appearance. She is not toxic-appearing. Cardiovascular: Rate and Rhythm: Normal rate and regular rhythm. Pulmonary: Effort: Pulmonary effort is normal. Breath sounds: Normal breath sounds. Abdominal: General: Abdomen is flat. Palpations: Abdomen is soft. Tenderness: There is no abdominal tenderness. Genitourinary: Comments: Deferred, no symptoms. Will self swab. Neurological: Mental Status: She is alert. Assessment and Plan ASSESSMENT/PLAN: 1. Exposure to gonorrhea - ICD9: V01.6, ICD10: Z20.2 (primary diagnosis) -Discussed with patient testing for gonorrhea and she will have to return for treatment if positive versus treating today since she was exposed. She prefers to be treated today. Rocephin injection given. -No symptoms at this time. -Declines lab testing, only wants swabs. -Denies concern for - GC/CHLAMYDIA DNA DET - ELVIRA / TRICHOMONAS AMPLIFICATION - CEFTRIAXONE 500 MG SOLUTION FOR INJECTION 2. Encounter for assessment of STD exposure - ICD9: V72.85, ICD10: Z76.89 - GC/CHLAMYDIA DNA DET - ELVIRA / TRICHOMONAS AMPLIFICATION Diagnosis and treatment plan were discussed and questions were answered to the patient's satisfaction. Pt acknowledged understanding of concepts and follow up plan. Specific signs and symptoms that would indicate the need for higher level of care were discussed in detail warranting prompt ER evaluation. EDVIN Hobbs [facility] 12-10-2022 History of Present illness Narrative This note was created using NoteWriter. Subjective Selam Fitzpatrick is a 32 year old female. HPI 32-year-old female presents for STD testing. Patient states that her recently tested positive for gonorrhea. She was advised to come in and be tested and treated. Patient denies any symptoms. No vaginal discharge or abnormal bleeding. No concern for . No abdominal pain, back pain, pelvic pain. No other complaints. PAST MEDICAL HISTORY Diagnosis Date Atypical squamous cells of undetermined significance (ASCUS) on Papanicolaou smear of cervix 03/18/2016 Chlamydia 2010 Depression 01/25/2014 PCOS (polycystic ovarian syndrome) Thyromegaly 01/25/2014 PAST SURGICAL HISTORY Procedure Laterality Date DELIVERY ONLY 12/10/12 , low transverse ALLERGIES Patient has no known allergies. MEDICATIONS cyclobenzaprine (FLEXERIL) 10 mg tablet^Take 1 tablet by mouth three times daily as needed for Muscle Spasm.^Disp: 30 tablet^Rfl: 11 naproxen (NAPROSYN) 500 mg tablet^Take 1 tablet by mouth twice daily as needed (pain/inflammation, take with food.).^Disp: 60 tablet^Rfl: 11 lactobacillus combination no.4 (PROBIOTIC) 3 billion cell cap^Take 1 capsule by mouth once daily.^Disp: 30 capsule^Rfl: [address] (PROTONIX) 40 mg tablet^Take 1 tablet by mouth once daily.^Disp: 30 tablet^Rfl: 5 FAMILY HISTORY Problem Relation Age of Onset Hypertension Mother Thyroid Mother Social History Tobacco Use Smoking status: Former Years: 1.00 Types: Cigarettes Quit date: 03/15/2012 Years since quittin.7 Smokeless tobacco: Never Substance Use Topics Alcohol use: Yes Comment: weekends Drug use: No Review of Systems Constitutional: Negative for chills and fever. HENT: Negative for congestion, ear pain and sore throat. Respiratory: Negative for cough and shortness of breath. Cardiovascular: Negative for chest pain. Gastrointestinal: Negative for diarrhea and vomiting. Genitourinary: Negative for frequency, hematuria, vaginal bleeding, vaginal discharge and vaginal pain. Objective BP 130/100 Pulse 88 Temp 36.6 C (97.8 F) Resp 22 Wt 105.1 kg (231 lb 9.6 oz) LMP 10/20/2020 (Exact Date) SpO2 98% BMI 37.38 kg/m Physical Exam Vitals and nursing note reviewed. Constitutional: General: She is not in acute distress. Appearance: Normal appearance. She is not toxic-appearing. Cardiovascular: Rate and Rhythm: Normal rate and regular rhythm. Pulmonary: Effort: Pulmonary effort is normal. Breath sounds: Normal breath sounds. Abdominal: General: Abdomen is flat. Palpations: Abdomen is soft. Tenderness: There is no abdominal tenderness. Genitourinary: Comments: Deferred, no symptoms. Will self swab. Neurological: Mental Status: She is alert. Assessment and Plan ASSESSMENT/PLAN: 1. Exposure to gonorrhea - ICD9: V01.6, ICD10: Z20.2 (primary diagnosis) -Discussed with patient testing for gonorrhea and she will have to return for treatment if positive versus treating today since she was exposed. She prefers to be treated today. Rocephin injection given. -No symptoms at this time. -Declines lab testing, only wants swabs. -Denies concern for - GC/CHLAMYDIA DNA DET - ELVIRA / TRICHOMONAS AMPLIFICATION - CEFTRIAXONE 500 MG SOLUTION FOR INJECTION 2. Encounter for assessment of STD exposure - ICD9: V72.85, ICD10: Z76.89 - GC/CHLAMYDIA DNA DET - ELVIRA / TRICHOMONAS AMPLIFICATION Diagnosis and treatment plan were discussed and questions were answered to the patient's satisfaction. Pt acknowledged understanding of concepts and follow up plan. Specific signs and symptoms that would indicate the need for higher level of care were discussed in detail warranting prompt ER evaluation. EDVIN Hobbs documented in this encounter [facility] 12-10-2022 Instructions EDVIN Hobbs - 12/10/2022 9:00 AM EDT No sexual intercourse for 10 days. Notify partner of any positive results Return if you develop any symptoms. 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 She has a history of irregular menses every 28-[address] ordered by Dr. Peri Hammond for uncertain dates. Quit smoking 04/14/2012 12/16/2012 Overview: 04/14/2012Pt recently quit smoking one month ago. Discussed risks of smoking during and advised pt to continue not smoking. Patient requested diagnostic testing 04/14/2012 07/15/2012 Overview: 04/14/2012Patient desires quad marker screen. Immunization history incomplete 04/14/2012 12/16/2012 Overview: 04/14/2012 patient is unsure if her tetanus vaccine is up to date. She is advised to bring her immunization records with her to her new OB appointment. Patient states she has never had chickenpox and has not had chickenpox vaccine. Varicella titer drawn today . 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 She has a history of irregular menses every 28-56 days. Ultrasound ordered by Dr. Peri Hammond for uncertain dates. Quit smoking 04/14/2012 12/16/2012 Overview: 04/14/2012Pt recently quit smoking one month ago. Discussed risks of smoking during and advised pt to continue not smoking. Patient requested diagnostic testing 04/14/2012 07/15/2012 Overview: 04/14/2012Patient desires quad marker screen. Immunization history incomplete 04/14/2012 12/16/2012 Overview: 04/14/2012 patient is unsure if her tetanus vaccine is up to date. She is advised to bring her immunization records with her to her new OB appointment. Patient states she has never had chickenpox and has not had chickenpox vaccine. Varicella titer drawn today . 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 She has a history of irregular menses every 28-[address] days[address] Ultrasound ordered by Dr. Peri Hammond for uncertain dates. Quit smoking 04/14/2012 12/16/2012 Overview: 04/14/2012Pt recently quit smoking one month ago. Discussed risks of smoking during and advised pt to continue not smoking. Patient requested diagnostic testing 04/14/2012 07/15/2012 Overview: 04/14/2012Patient desires quad marker screen. Immunization history incomplete 04/14/2012 12/16/2012 Overview: 04/14/2012 patient is unsure if her tetanus vaccine is up to date. She is advised to bring her immunization records with her to her new OB appointment. Patient states she has never had chickenpox and has not had chickenpox vaccine. Varicella titer drawn today . documented as of this encounter (statuses as of 07/01/2023) [facility] Exposure to gonorrhea- Primary Contact with or exposure to venereal diseases Encounter for assessment of STD exposure [facility] Diagnosis Well adult exam- Primary Routine general medical examination at a health care facility Gastroesophageal reflux disease with esophagitis, unspecified whether hemorrhage Need for influenza vaccination Need for prophylactic vaccination and inoculation against influenza Obesity, Class II, BMI 35-39.9 Obesity, unspecified [facility] Diagnosis Vitamin D deficiency- Primary Unspecified vitamin D deficiency documented in this encounter [facility] Summary Purpose Family History No Family History Records FoundNo Family History Records Found Advance Directives No Advanced Directives Records FoundNo Advanced Directives Records Found Medications Administered Section Inactive Administered Medications - up to 3 most recent administrations Medication Order MAR Action Action Date Dose Rate Site cefTRIAXone 500 mg intramuscular injection (ROCEPHIN) 500 mg, INTRAMUSCULAR, ONCE, 1 dose, On Ariana 12/10/22 at 0930, Please document the antimicrobial indication: Empiric Given 12/10/2022 9:28 AM EDT 500 mg Buttocks, Right Additional Source Comments INFORMATION SOURCE (unrecogn ized section and content) DATE CREATED AUTHOR AUTHOR'S ORGANIZ ATION 07/01/2023 [facility] Source Comments (unrecognize d section and content) In the event this informatio n is protected by the Federal Confidentiality of Alcohol and Drug Abuse Patient Records regulations: The Federal rules restrict any use of the information to criminally investigate or prosecute any alcohol or drug abuse patient.[facility] the event this information is protected by the Federal Confidentiality of Alcohol and Drug Abuse Patient Records regulations: The Federal rules restrict any use of the information to criminally investigate or prosecute any alcohol or drug abuse patient.[facility] the event this information is protected by the Federal Confidentiality of Alcohol and Drug Abuse Patient Records regulations: The Federal rules restrict any use of the information to criminally investigate or prosecute any alcohol or drug abuse patient.[facility] the event this information is protected by the Federal Confidentiality of Alcohol and Drug Abuse Patient Records regulations: The Federal rules restrict any use of the information to criminally investigate or prosecute any alcohol or drug abuse patient.[facility] Reason for Visit (unrecogniz ed section and content) Reason Comments Erroneous encounter-disregard Reason Onset Date Comments Yearly Exam Immunizations 06/16/2023 Flu vaccination Care Teams (unrecognized sec tion and content) Attic Blower Relationship Specialty Start Date End Date Toby Fontaine DO [address] [place] [address] PCP - General Family Medicine 04/30/14 Attic Blower Relationship Specialty Start Date End Date Toby Fontaine DO [address] [place], [place] [id number] PCP - General Family Medicine 04/30/14 Attic Blower Relationship Specialty Start Date End Date Toby Fontaine DO [address] [place] [address] PCP - General Family Medicine 04/30/14 FOR RECORDS PERTAINING TO PATIENTS WHO ARE OR HAVE BEEN ENROLLED IN A CHEMICAL DEPENDENCY/SUBSTANCEABUSE PROGRAM, SOME INFORMATION MAY BE OMITTED. This clinical summary was aggregated from multiple sources. Caution should be exercised in using it in the provision of clinical care. This summary normalizes information from multiple sources, and as a consequence, information in this document may materially change the coding, format and clinical context of patient data. In addition, data may be omitted in some cases. CLINICAL DECISIONS SHOULD BE BASED ON THE PRIMARY CLINICAL RECORDS. [facility]. provides no warranty or guarantee of the accuracy or completeness of information in this document.
== END | disposition home or self-care (01) ==
PROVIDERS: PCP Student in an Organized Health Care Education/Training Program; Referring Provider Obstetrics & Gynecology; Visit Provider Obstetrics & Gynecology
DX: E01.0 Iodine-deficiency related diffuse (endemic) goiter (principal)
CPT/HCPCS: 76536

== ENCOUNTER 2023-10-14 23:39 | Emergency (ER) | payer MEDICAID, SELFPAY ==
[2023-10-14 23:39] VITALS: BP 153/109; PULSE 100; RESP 18; TEMP 36.9; O2SAT 99; BMI 37.0
[2023-10-15] MEDS: Amox/Clavulanate 875 MG Tablet PO (00:09)
[2023-10-15] MEDS: Lidocaine 2% (20 ml mdv) 20 ML Vial INFILT (00:09)
--- NOTE | 2023-10-15 00:45 | EX.ED.DYSGE1 ---
HPI History of Present Illness Chief Complaint: Laceration Informant: patient and spouse/S.O. Narrative Narrative: Patient is a 33-year-old female with past medical history of GERD and depression. She states this evening she lost her balance and fell from a standing position. She states when she landed she believes that she bit through her upper lip. She denies any loss of consciousness or history of bleeding disorder or blood thinner use. She denies any other injuries. She states her tetanus status is up-to-date. However with concern for need for possible suture she presents for evaluation [facility] Medical History (Updated 10/15/23 @ 01:[address] Dereck Chinchilla, DO) Depression GERD (gastroesophageal reflux disease) Thyromegaly Home Medications Saccharomyces boulardii 250 mg capsule (Daily Probiotic (S. boulardii)) 250 mg PO BID 06/25/23 [History Last Taken Unknown] cyclobenzaprine 10 mg tablet 10 mg PO HS 06/25/23 [History Last Taken Unknown] naproxen 250 mg tablet 250 mg PO BID PRN pain 06/25/23 [History Last Taken Unknown] pantoprazole 40 mg granules delayed-release for susp in packet 40 mg PO DAILY 06/25/23 [History Last Taken Unknown] phentermine 37.5 mg tablet 37.5 mg PO DAILY 06/25/23 [History Last Taken Unknown] amoxicillin 875 mg-potassium clavulanate 125 mg tablet 1 tab PO BID 7 days #14 tabs 10/15/23 [Rx Last Taken Unknown] Allergy/AdvReac Type Severity Reaction Status Date / Time adhesive tape [tape] Allergy Mild Rash Verified 10/14/23 23:44 Environmental Allergies: Allergy Rash Verified 10/14/23 23:44 Uncoded Family History Mother Hypertension Thyroid disorder Surgical History History of cholecystectomy S/P Social History adopted: No household members: spouse and children number of children: 1 current occupational status: employed current occupation: [employer] pets and animals: Yes pets and animals: dog(s) Smoking Status: Former smoker alcohol intake: current details: occasionally/not while substance use type: does not use caffeine: Yes what type of physical activity do you participate in: none seatbelt use: always do you feel safe at home: Yes additional social history: -Julian (daughter Antonette from previous relationship) ROS ROS ED Constitutional Constitutional ED: Denies chills or fever(s) Eyes Eyes: Denies blurry vision, change in vision or diplopia ENT ENT ED: Reports other Details: Positive lip swelling/laceration ; Denies sore throat Cardiovascular Cardiovascular: Reports other Details: Negative syncope ; Denies chest pain Respiratory/Chest Respiratory/Chest: Denies cough or dyspnea Gastrointestinal Gastrointestinal: Denies abdominal pain, diarrhea, nausea or vomiting Genitourinary Genitourinary ED: Denies dysuria Musculoskeletal Musculoskeletal: Denies back pain, myalgias or neck pain Integumentary Reports other Details: Positive upper lip laceration Neurologic Neurologic: Denies headache(s), paresthesias or weakness Hematologic/Lymphatic Hematologic/Lymphatic: Denies easy bleeding or easy bruising EXAM Physical Exam Const Vital Signs: 10/14/23 23:39 10/15/23 00:54 Temperature 98.5 F 97.9 F Temperature Source Oral Pulse Rate 100 100 Respiratory Rate 18 18 Blood Pressure 153/109 H 148/60 H Blood Pressure Mean 123 89 Pulse Ox 99 99 Oxygen Delivery Method Room Air Positive well nourished, well developed and obese General Appearance ED: well developed Nutritional Appearance: obese HEENT HEENT Narrative: No signs of depressed or basilar skull fracture Patient has a oval full-thickness laceration to the midportion of the upper lip that is 1.5 cm in size with minimal ooze of blood and no foreign body. The laceration extends through the entire upper lip but examination of the upper jaw reveals no obvious signs of jaw fracture/injury or fracture to the No airway edema or compromise No septal hematoma Eyes PERRL and EOMs intact bilaterally Eyes Narrative: No hyphema Neck supple Neck Narrative: No bony deformity or step-off of the cervical spine no midline pain with palpation Patient can move her neck in all directions without pain Chest Wall palpation of chest normal Resp normal respiratory effort and clear to auscultation bilaterally Cardio regular rate and regular rhythm Back/Spine Back/Spine Narrative: No bony deformity or step-off of the thoracic or lumbar spine no midline tenderness to palpation Extremity normal to inspection Extremity Narrative: Pelvis is stable there is no shortening or external rotation of either lower extremity Patient can move all extremities without difficulty Neuro oriented x3, CN's II-XII intact bilaterally and no sensory deficits noted Sensorium / Orientation: alert Motor Exam: strength 5/5 throughout Psych mental status grossly normal Skin Skin Narrative: Laceration to the upper lip as documented above MDM MDM MDM Narrative Medical decision making narrative: Patient presented to the ER hypertensive otherwise with stable vitals. She reported a mechanical fall and therefore I felt no need for cardiac or syncope workup. She also denied any history of bleeding disorder or blood thinner use. Her GCS is 15 she has no signs of depressed or basilar skull fracture and based on these findings along with her mechanism of injury concern for skull fracture versus epidural or subdural hematoma is low and I do not feel there is a need for head CT. Also as patient has no midline tenderness and can move her neck in all directions concern for compression fracture or spondylolisthesis is low and there is no need for cervical spine CT. patient reports her tetanus status is up-to-date and therefore there is no need to provide this either. Therefore the wound was closed as documented below and as the wound was caused by a human mouth/teeth there is concern for infection and she will be started on prophylactic antibiotics Patient had the upper lip cleaned with chlorhexidine. It was anesthetized with 4 mL of 2% lidocaine without epinephrine and local fashion. The wound was copiously irrigated with normal saline. Four 5-0 Vicryl sutures were then placed in simple interrupted fashion to bring the wound together good approximation. Patient tolerated procedure well without complication History & Record Review Discussion w/independent historian: Patient and Significant other Discharge Plan Triage Chief Complaint: Laceration ED Provider: Dereck Chinchilla Dx/Rx/DC Orders Clinical Impression: Laceration of lip, History of depression, Accidental fall Instructions: ED Laceration, Lip or Mouth Prescriptions: New amoxicillin-pot clavulanate 875-125 mg tablet 1 tab PO BID 7 Days Qty: 14 0RF No Action cyclobenzaprine 10 mg tablet 10 mg PO HS naproxen 250 mg tablet 250 mg PO BID PRN (Reason: pain) Saccharomyces boulardii [Daily Probiotic (S. boulardii)] 250 mg capsule 250 mg PO BID pantoprazole [address] for susp in packet 40 mg PO DAILY phentermine 37.5 mg tablet 37.5 mg PO DAILY Rx Instructions: must administer 30 minutes before or 1-2 hours after breakfast Stand Alone Forms: ED Work / School Excuse Primary Care Provider: Toby Fontaine Referrals: Toby Fontaine DO [Primary Care Provider] - Activity Restrictions/Additional Instructions: Your sutures should dissolve in the next 7 to 10 days. Take your antibiotic as directed to prevent infection. Return to the ER should you have any further concerns Disposition Disposition: Home, Self Care Discharge Date/Time: 10/15/23 00:55
[2023-10-15 00:54] VITALS: BP 148/60; PULSE 100; RESP 18; TEMP 36.6; O2SAT 99
== END 2023-10-15 00:55 | disposition home or self-care (01) ==
PROVIDERS: Emergency Provider Emergency Medicine; PCP Student in an Organized Health Care Education/Training Program; Visit Provider Emergency Medicine
DX: S01.511A Laceration without foreign body of lip, initial encounter (principal); F32.A Depression, unspecified; W18.39XA Other fall on same level, initial encounter; K21.9 Gastro-esophageal reflux disease without esophagitis; Z79.899 Other long term (current) drug therapy; Z90.49 Acquired absence of other specified parts of digestive tract; Z87.891 Personal history of nicotine dependence
CPT/HCPCS: 12011; 99282

== ENCOUNTER 2023-10-18 16:54 | Emergency (ER) | payer MEDICAID, SELFPAY ==
[2023-10-18 16:54] VITALS: BP 146/94; PULSE 123; RESP 16; TEMP 36.2; O2SAT 100; BMI 35.9
[2023-10-18] MEDS: HYDROcodone Bitartrate/Apap 5/325 Tablet PO (17:51)
[2023-10-18 17:52] VITALS: BP 135/70; PULSE 100; RESP 16; TEMP 36.2; O2SAT 96
--- NOTE | 2023-10-18 17:54 | ED.VIS.DENTA ---
HPI History of Present Illness Chief Complaint: Dental Narrative Narrative: 33-year-old female presenting with dental pain. She had a fall few days ago and had her upper lip laceration sewn and had dental pain and then and was put on Augmentin. She supposed to follow-up with dentistry. She supposed the [facility] tomorrow. She is concerned that her front teeth might fall out. Denies any new trauma. She has pain in the gums. She states Tylenol and ibuprofen are helping. No difficulty swallowing or breathing. Her sutures been fine. No systemic signs or symptoms. PFSH PFS Medical History Depression GERD (gastroesophageal reflux disease) Thyromegaly Home Medications Saccharomyces boulardii 250 mg capsule (Daily Probiotic (S. boulardii)) 250 mg PO BID 06/25/23 [History Last Taken Unknown] cyclobenzaprine 10 mg tablet 10 mg PO HS 06/25/23 [History Last Taken Unknown] naproxen 250 mg tablet 250 mg PO BID PRN pain 06/25/23 [History Last Taken Unknown] pantoprazole 40 mg granules delayed-release for susp in packet 40 mg PO DAILY 06/25/23 [History Last Taken Unknown] phentermine 37.5 mg tablet 37.5 mg PO DAILY 06/25/23 [History Last Taken Unknown] amoxicillin 875 mg-potassium clavulanate 125 mg tablet 1 tab PO BID 7 days #14 tabs 10/15/23 [Rx Last Taken Unknown] hydrocodone-acetaminophen 5-325mg 5mg-325mg 1 tab PO Q6H 3 days #12 TABLETS 10/18/23 [Rx Last Taken Unknown] Allergy/AdvReac Type Severity Reaction Status Date / Time adhesive tape [tape] Allergy Mild Rash Verified 10/14/23 23:44 Environmental Allergies: Allergy Rash Verified 10/14/23 23:44 Uncoded Family History Mother Hypertension Thyroid disorder Surgical History History of cholecystectomy S/P Social History adopted: No household members: spouse and children number of children: 1 current occupational status: employed current occupation: [employer] pets and animals: Yes pets and animals: dog(s) Smoking Status: Former smoker alcohol intake: current details: occasionally/not while substance use type: does not use caffeine: Yes what type of physical activity do you participate in: none seatbelt use: always do you feel safe at home: Yes additional social history: -Julian (daughter Antonette from previous relationship) ROS ROS ED Constitutional Constitutional ED: Denies chills, fever(s) or sweats Eyes Eyes: Denies blurry vision or change in vision ENT ENT ED: Reports other Details: Dental pain ; Denies ear pain or sore throat Cardiovascular Cardiovascular: Denies chest pain, palpitations or racing heartbeat Respiratory/Chest Respiratory/Chest: Denies cough, dyspnea or sputum Gastrointestinal Gastrointestinal: Denies abdominal pain, constipation, diarrhea, nausea or vomiting Genitourinary Genitourinary ED: Denies dysuria, hematuria or urinary frequency Musculoskeletal Musculoskeletal: Denies arthralgias, myalgias or neck pain Integumentary Denies abscess, Abrasions or rash Neurologic Neurologic: Denies headache(s), paresthesias or weakness Psychiatric Psychiatric: Denies anxiety, depression, suicidal ideation or suicidal thoughts Endocrine Endocrinology: Denies polydipsia or polyuria EXAM Physical Exam Const Vital Signs: 10/18/23 16:54 10/18/23 17:52 Temperature 97.2 F L 97.2 F L Temperature Source Temporal Pulse Rate 123 H 100 Respiratory Rate 16 16 Blood Pressure 146/94 H 135/70 H Blood Pressure Mean 111 91 Pulse Ox 100 96 Oxygen Delivery Method Room Air Positive well nourished HEENT HEENT Narrative: Dental percussion tenderness over the front teeth, 8, 9. There is superficial abrasion noted to the gumline. The teeth do not appear to be impacted. No dental fractures. Throat: posterior oropharynx normal Eyes PERRL Resp normal respiratory effort Cardio regular rate and regular rhythm Neuro oriented x3 Sensorium / Orientation: alert Psych mental status grossly normal Skin no rashes or lesions noted MDM MDM MDM Narrative Medical decision making narrative: 33-year-old female with dental pain. She had a fall and lacerated her lip previously and now is having dental pain and concern her teeth may fall out. On examination they do look like there is superficial abrasions at the base of the teeth on the gingiva and there is dental percussion tenderness over 8, 9. There is no deformity. No dental fractures. Patient has an appointment for [facility] tomorrow. I counseled her that for her dental pain there is not much I can do except pain control. She was amenable to this. She will follow-up with dentistry tomorrow. She given Ardsley here and a prescription for Ardsley for home. Impression: 1. Dental trauma Lab Data Attestation: I reviewed the patient's lab results. Discharge Plan Triage Chief Complaint: Dental ED Provider: Randal Russell Dx/Rx/DC Orders Instructions: ED Dental Pain Prescriptions: New hydrocodone-acetaminophen 5-325 mg tablet 1 tab PO Q6H 3 Days Qty: 12 0RF No Action cyclobenzaprine 10 mg tablet 10 mg PO HS naproxen 250 mg tablet 250 mg PO BID PRN (Reason: pain) Saccharomyces boulardii [Daily Probiotic (S. boulardii)] 250 mg capsule 250 mg PO BID pantoprazole [address] for susp in packet 40 mg PO DAILY phentermine 37.5 mg tablet 37.5 mg PO DAILY Rx Instructions: must administer 30 minutes before or 1-2 hours after breakfast amoxicillin-pot clavulanate 875-125 mg tablet 1 tab PO BID 7 Days Qty: 14 0RF Primary Care Provider: Toby Fontaine Referrals: Toby Fontaine DO [Primary Care Provider] - Disposition Disposition: Home, Self Care
== END 2023-10-18 17:53 | disposition home or self-care (01) ==
PROVIDERS: Emergency Provider Student in an Organized Health Care Education/Training Program; PCP Student in an Organized Health Care Education/Training Program; Visit Provider Student in an Organized Health Care Education/Training Program
DX: K08.89 Other specified disorders of teeth and supporting structures (principal); K21.9 Gastro-esophageal reflux disease without esophagitis; F32.A Depression, unspecified; Z90.49 Acquired absence of other specified parts of digestive tract; Z87.891 Personal history of nicotine dependence; S01.511D Laceration without foreign body of lip, subsequent encounter; W19.XXXD Unspecified fall, subsequent encounter
CPT/HCPCS: 99282

== ENCOUNTER → 2024-12-22 | Outpatient (CLI) | payer MEDICAID, SELFPAY ==
[2024-12-26 20:08] LABS: HPV APTIMA, High Risk Negative (Negative)
== END | disposition home or self-care (01) ==
LOC: LABSPEC 16:36
PROVIDERS: PCP Student in an Organized Health Care Education/Training Program; Referring Provider Obstetrics & Gynecology; Visit Provider Obstetrics & Gynecology
DX: Z12.4 Encounter for screening for malignant neoplasm of cervix (principal)
CPT/HCPCS: 87624; 88175; G0145

== ENCOUNTER → 2025-05-15 | Outpatient (CLI) | payer MEDICAID, SELFPAY ==
--- NOTE | 2025-05-15 15:29 | US_ITS ---
PROCEDURE: TRANSVAGINAL W/PREG US 05/15/2025 REASON FOR EXAM: DATING TECHNIQUE: Procedure Code: [id number] Modality: US Procedure: TRANSVAGINAL W/PREG US COMPARISON: None FINDINGS Uterus measures 7.7 x 5.6 x 5.4 cm. It is retroverted position. No uterine fibroids are noted. Cervix is closed Intrauterine gestational sac with gestational sac measuring 1.1 cm. Yolk sac measures 2 mm and CRL measures 2 mm. Overall sonographic gestational age of 6 weeks and 0 days with YADIRA of 01/08/2026. heart rate of 111 beats per minute. Right ovary measures 2.1 x 1.7 x 1.2 cm and left ovary measures 3.2 x 2.4 x 1.5 cm. There is normal bilateral symmetrical blood flow within bilateral ovaries. 1.7 x 1.6 x 1.4 cm cyst within left ovary. Moderate free fluid within the left adnexa US/Transvaginal w/Preg US IMPRESSION: Overall sonographic gestational age of 6 weeks and 0 days with YADIRA of 6. 1.7 cm cyst within left ovary. Moderate free fluid within the left adnexa. Reading Location: [id number]
== END | disposition home or self-care (01) ==
LOC: US 15:26
PROVIDERS: PCP Student in an Organized Health Care Education/Training Program; Referring Provider Obstetrics & Gynecology; Visit Provider Obstetrics & Gynecology
DX: Z34.90 Encounter for supervision of normal pregnancy, unspecified, unspecified trimester (principal)
CPT/HCPCS: 76817

== ENCOUNTER → 2025-05-28 | Outpatient (CLI) | payer MEDICAID, SELFPAY ==
[2025-05-28 13:33] LABS: Barbiturate Urine NEGATIVE (< 200 ng/mL); Benzodiazepine Urine NEGATIVE (< 200 ng/mL); PCP Urine NEGATIVE (< 25 ng/mL); THC Urine PRESUMPTIVE POSITIVE (< 50 ng/mL)
[2025-05-29 20:08] LABS: Chlamydia By Nucleic Acid AMP Negative (Negative); Gonococcus By Nucleic Acid AMP Negative (Negative)
== END | disposition home or self-care (01) ==
LOC: LABSPEC 12:08
PROVIDERS: PCP Student in an Organized Health Care Education/Training Program; Visit Provider Obstetrics & Gynecology
DX: O09.90 Supervision of high risk pregnancy, unspecified, unspecified trimester (principal); Z3A.00 Weeks of gestation of pregnancy not specified; F12.90 Cannabis use, unspecified, uncomplicated
CPT/HCPCS: 80307; 87077; 87086; 87088; 87186; 87491; 87591

== ENCOUNTER → 2025-06-25 | Outpatient (CLI) | payer MEDICAID, SELFPAY ==
[2025-06-25 12:35] LABS: Hematocrit 37.6 % (37-47); Hemoglobin 12.3 g/dL (12.0-15.0); Immature Granulocytes Count 0.040 X10^3/uL (0.0-0.0); Mean Corp Hgb Conc 32.7 g/dL (32-36); Mean Corpuscular Volume 86.4 fL (81-99); Mean Platelet Vol. 10.2 fl (6.2-12.0); NRBC Flagged by Analyzer 0 % (0-5); Platelet Count 358 K/mm3 (150-450); RBC Distribution Width CV 12.6 % (11.6-14.6); RBC Distribution Width SD 40.1 fl (35.1-43.9); Red Blood Count 4.35 M/mm3 (4.2-5.4); White Blood Count 8.7 K/mm3 (4.4-11.0)
[2025-06-25 13:09] LABS: HIV Nonreactive (Nonreactive); Hepatitis B Surface Antigen Nonreactive (Nonreactive); Hepatitis C Antibody Nonreactive (Nonreactive); Syphilis Antibodies Nonreactive (Nonreactive)
== END | disposition home or self-care (01) ==
PROVIDERS: Obstetrics & Gynecology; PCP Student in an Organized Health Care Education/Training Program; Visit Provider Nurse Practitioner Women's Health
DX: O09.511 Supervision of elderly primigravida, first trimester (principal); E01.0 Iodine-deficiency related diffuse (endemic) goiter
CPT/HCPCS: 36415; 83036; 84439; 84443; 85025; 86703; 86762; 86780; 86803; 86850; 86900; 86901; 87340

== ENCOUNTER 2025-07-06 13:37 | Emergency (ER) | payer MEDICAID, SELFPAY ==
[2025-07-06 13:37] VITALS: BP 129/90; PULSE 99; RESP 16; TEMP 36.7; O2SAT 100; BMI 34.2
--- NOTE | 2025-07-06 15:10 | EDS_ITS ---
HPI History of Present Illness Chief Complaint: Cold Sx [facility] Medical History (Updated 07/06/25 @ 08:[address] Patricia Borrero, )
--- NOTE | 2025-07-06 15:10 | EX.ED.DYSGE1 ---
HPI History of Present Illness Chief Complaint: Cold Sx [facility] Medical History (Updated 07/06/25 @ 08:[address] Patricia Borrero, DO) Thyromegaly Depression GERD (gastroesophageal reflux disease) Home Medications ?Medication ?Instructions ?Recorded ?Last Taken ?Type Saccharomyces boulardii 250 mg 250 mg PO BID 06/25/23 Unknown History capsule (Daily Probiotic (S. boulardii)) cholecalciferol (vitamin D3) 1,250 1,250 mcg PO QMONTH 12/22/24 Unknown History mcg (50,000 unit) capsule diclofenac sodium 1 % topical gel 2 g topical ONCE 12/22/24 Unknown History metformin 500 mg tablet 500 mg PO QDAY 12/22/24 Unknown History docosahexaenoic acid 200 mg mg PO 05/18/25 Unknown History capsule ( DHA) ondansetron 4 mg disintegrating 4 mg PO Q6H PRN nausea and 05/31/25 Unknown Rx tablet vomiting #30 tabs Allergy/AdvReac Type Severity Reaction Status Date / Time adhesive tape (tape) Allergy Mild Rash Verified 07/06/25 13:39 Environmental Allergies: Allergy Rash Verified 07/06/25 13:39 Uncoded Family History Mother Hypertension Thyroid disorder Father Diabetes Surgical History S/P History of cholecystectomy Social History adopted: No household members: spouse and children number of children: 2 current occupation: [employer] current occupational exposures/hazards: No pets and animals: No history of recent travel: No sexually active: Yes Smoking Status: Never smoker second hand exposure: Yes ( smokes outside) alcohol intake: current alcohol intake frequency: holidays/special occasions only details: not while substance use type: marijuana well-balanced diet: daily or most days caffeine: Yes eating out: rarely or never during the past year weight has: remained stable what type of physical activity do you participate in: walking frequency: 1-2 times per week duration: < 15 minutes/day jacky/church: None seatbelt use: sometimes do you feel safe at home: Yes additional social history: : 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 Denies shortness of breath or chest pain. Denies leg swelling. Denies abdominal pain, patches of any tissue or leakage of any fluid. REVIEW OF SYSTEMS: Pertinent positives: As per HPI Pertinent negatives: As per HPI PHYSICAL EXAM: Nursing triage notes reviewed, Vital signs reviewed Constitutional: please see [facility] HENT: MMM, right TM with hyperemia, middle ear effusion, no external auditory abnormalities. Left TM within normal limits, pearly bynum, good light reflex, easily identifiable middle ear structures. Eyes: Pupils equal round and reactive to light, Extraocular muscles intact Neck: No stridor, no JVD, full neck ROM Lungs: Clear to auscultation, No wheezing or rales. No increased work of breathing, no conversational dyspnea, no accessory muscle use, no nasal flaring. No respiratory distress noted Heart: Regular rate and rhythm, No murmurs, No rubs and No gallops, 2+ distal pulses (radial, femoral, posterior tibial) in all extremities Abdomen: Soft, there is no tenderness, rigidity, rebound or guarding, no obvious peritoneal signs, no palpable pulsatile abdominal masses, no auscultated abdominal bruit : No CVAT Extremities: No edema Neuro: No new focal neurological deficits, cranial nerves II through XII intact, 5/5 strength in all present extremities. Intact sensation to light touch in all present extremities, 2+ reflexes bilateral patella tendons. Skin: No rash or lesions noted MEDICAL DECISION MAKING: Chief Complaint: please see HPI External records reviewed: Reviewed prior ED visits, reviewed prior imaging, reviewed prior allergy Factors affecting care: As per HPI Social determinants of health: History of marijuana use reported in the chart History obtained from others: none Consults: none [facility] Narrative: Patient was initially hemodynamically stable, afebrile and nontoxic-appearing. Exam consistent with otitis media on the right I considered the following differential diagnosis: Otitis media, otitis externa, COVID, RSV, flu, pneumonia, bacterial sinusitis Patient's history and physical exam most consistent with likely otitis media. Will give Augmentin. Strict return precautions were discussed. Prompt follow-up PCP discussed. The patient and/or family, caregivers express understanding. The patient and/or family, caregivers agrees with the plan. Shared decision making: I will have a discussion with the patient and or visitors regarding risk/benefits of further testing or admission. They will be made aware of of the risk/benefits inherent in this decision they will be given the opportunity to voice understanding. Total critical care time today provided was at least 0 minutes. This excludes separately billable procedures. Critical care time (if documented) is secondary to the patient having high probability of clinically significant/life threatening deterioration in the patient's condition which required my urgent intervention. Impression: 1. Otitis media 2. 2nd Trimester Dispo: discharge This note was generated with [employer] dictation software. It may contain incorrect words, spelling, and punctuation that were not noted in review of the chart prior to signing. Discharge Plan Triage Chief Complaint: Cold Sx ED Provider: Darrell Villa Dx/Rx/DC Orders Prescriptions: No Action Saccharomyces boulardii [Daily Probiotic (S. boulardii)] 250 mg capsule 250 mg PO BID cholecalciferol (vitamin D3) 1,250 mcg (50,000 unit) capsule 1,250 mcg PO QMONTH diclofenac sodium 1 % gel 2 g topical ONCE Rx Instructions: apply to single elbow, wrist or hand; for hand includes palm/fingers/back of hand metformin 500 mg tablet 500 mg PO QDAY DHA 200 mg capsule PO ondansetron 4 mg tablet,disintegrating 4 mg PO Q6H PRN (Reason: nausea and vomiting) Qty: 30 4RF Primary Care Provider: Toby Fontaine Referrals: Toby Fontaine DO [Primary Care Provider, Medical] Print Language: Tuvaluan
--- OUTSIDE RECORDS SUMMARY | 2025-07-06 15:45 | XMS RPT_ITS | CCD ---
Demographics Address [address] [place] [address] Preferred Language en Marital Status [place] Affiliation Unknown Race Black or Melanie rican Ethnic Group Not or Lati no Author Organization [facility] CliniSymd Care Team Providers Care Certified Hand Therapist Name Role Phone Dr. Toby Parada Primary Care Provider [phone] Dr. Patricia Borrero Attending Provider [phone] Dr. Patricia Borrero Referring Provider [phone] Dr. Patricia Borrero Other Provider Sandra SILK SNAPPER, SILK SNAPPER-C Ludwin Attending Provider [phone] Dr. Toby Parada Referring Provider [phone] Dr. Toby Parada Primary Care Provider [phone] Dr. Patricia Borrero Attending Provider [phone] Dr. Arianna Torres Attending Provider [phone] Ceferino SILK SNAPPER, SILK SNAPPER-C Priya Attending Provider [phone] Dr. Toby Parada Primary Care Provider Sandra SILK SNAPPER, SILK SNAPPER-C Ludwin Attending Provider [phone] Dr. Toby Parada Primary Care Provider [phone] Dr. Toby Parada Referring Provider Dr. Patricia Borrero Attending Provider TOBY PARADA Primary Care Unavailable RIVERA STEWART Attending Unavailable LUDWIN DAO Referring Unavailable GILMER AMOR Attending Unavailable TOBY PARADA Primary Care Unavailable SANDRA, LUDWIN S Referring Unavailable SANDRA, LUDWIN S Referring Unavailable GILMER AMOR Attending Unavailable TOBY PARADA Primary Care Unavailable GILMER AMOR Attending Unavailable TOBY PARADA Primary Care Unavailable SANDRA, LUDWIN S Referring Unavailable Dr. Toby Parada Primary Care Provider Dr. Toby Parada Referring Provider Dr. Arianna Torres Attending Provider Sandra SILK SNAPPER, SILK SNAPPER-C Ludwin Attending Provider Toby Parada DO Primary Care Provider Dr. Toby Parada Primary Care Provider Dr. Toby Parada Referring Provider Dr. Arianna Torres Attending Provider [phone] Dr. Toby Parada Primary Care Provider Dr. Toby Parada Referring Provider Dr. Arianna Torres Attending Provider [phone] Toby Parada DO Primary Care Provider [employer] STRATEGIC CLIENT EXECUTIVE.Aury WHITTAKER Unavailable Fabiano STRATEGIC CLIENT EXECUTIVE.Leah WHITTAKER Unavailable Dr. Toby Parada DO Primary Care Provider [phone] Dr. Toby Parada DO Referring Provider Dr. Patricia Borrero DO Attending Provider Dr. Patricia Borrero DO Referring Provider [facility] STRATEGIC CLIENT EXECUTIVE.Latanya WHITTAKER Unavailable TOBY PARADA Primary Care Unavailable PRECIOUS MOSES Attending Unavailable TOBY PARADA Primary Care Unavailable TOBY PARADA Attending Unavailable TOBY PARADA Primary Care Unavailable TOBY PARADA Primary Care Unavailable TOBY PARADA Referring Unavailable Toby Parada Referring Unavailable Toby Parada Primary Care Unavailable Patricia Borrero Attending Toby Zarco Primary Care Unavailable Patricia Borrero Referring Patricia Jiménez Attending Toby Zarco Primary Care Unavailable Arianna Torres Referring Unavailable Arianna Torres Attending Unavailable Allergies Allergy Classification Reported Allergen(s) Allergy Type Date of Onset Reaction(s) Facility (8 sources) Adhesive Tape Allergy to substance [address] [facility] Work Phone: (8 sources) powder Allergy to substance 2 [facility] Work Phone: (14 sources) Latex; Translations: [LATEX] Drug Allergy 3 [facility] Work Phone: (7 sources) Adhesive Tape; Translations: [adhesive tape] Allergy to substance [address] [facility] (7 sources) Environmental Allergies: Uncoded; Translations: [Environmental Allergies: Uncoded] Allergy to substance [address] [facility] Comment on above: powder Medications Current Medications Medication Drug Class(es) Dates Sig (Normalized) Sig (Original) cephalexin 500 mg oral capsule (13 sources) Cephalosporin Antibacterial Start: 03-27-2024 End: 04-06-2024 take 1 capsule by mouth four times daily cephALEXin (KEFLEX) 500 mg capsule Take 1 capsule by mouth four times daily for 10 days. 40 capsule 03/27/2024 04/06/2024 Active Start: 12-10-2021 End: 12-17-2021 take 1 tablet by mouth twice daily Cephalexin 500 mg tablet Discontinued 500 mg PO TWICE A DAY 14 7 December 10, 2021 12:00am December 16, 2021 12:00am December 17, 2021 12:03am cholecalciferol 1.25 mg oral capsule (15 sources) Vitamin D Start: 12-22-2024 take 1 capsule by mouth every month Cholecalciferol (Vitamin D3) 1,250 mcg (50,000 unit) capsule Active 1250 ug PO EVERY MONTH December 22, 2024 12:00am Start: 06-30-2023 End: 03-21-2025 take 1 capsule by mouth every week cholecalciferol, Vitamin D3, (VITAMIN D3) 1,250 mcg (50,000 unit) cap capsule Indications: Vitamin D deficiency Take 1 capsule by mouth one time a week. 4 capsule 2 03/21/2025 Active Comment on above: Take 1 capsule by mo [facility] one time a week. cyclobenzaprine hydrochloride 10 mg oral tablet (20 sources) Muscle Relaxant Start: 12-23-19 End: 03-21-20 take 1 tablet by mouth three times daily as needed for muscle spasms cyclobenzaprine (FLEXERIL) 10 mg tablet Indications: Myalgia Take 1 tablet by mouth three times a day as needed for muscle spasm. 30 tablet 11 03/21/2025 Active Start: 09-04-2018 End: 09-24-2021 take 1 tablet by mouth three times daily as needed for muscle spasms Cyclobenzaprine 10 MG tablet Discontinued 10 mg PO 3 TIMES DAILY NEEDED as needed for muscle spasms September 04, 2018 1:00am September 24, 2021 1:37pm Comment on above: Take 1 tablet by [facility] three times daily as needed for Muscle Spasm. diclofenac sodium 0.01 mg/mg topical gel (11 sources) Nonsteroidal Anti-inflammatory Drug Start: apply 2 g topically once Diclofenac Sodium 1 % gel Active 2 g TOPICAL ONCE December 22, 2024 12:00am apply to single elbow, wrist or hand; for hand includes palm/fingers/back of hand Start: 01-03-2024 End: 03-21-2025 diclofenac (VOLTAREN ARTHRIT IS PAIN) 1 % topical gel Apply 2 g to affected area four times daily. As needed for joint pain 100 g 1 03/21/2025 Active lactobacillus combination no .4 (PROBIOTIC) 3 billion cell cap (17 sources) Start: 03-21-2025 lactobacillus combination no.4 (PROBIOTIC) 3 billion cell cap Indications: Gastroesophageal reflux disease with esophagitis, unspecified whether hemorrhage Take 1 capsule by mouth once daily. 30 capsule 11 03/21/2025 Active Start: 10-23-2024 End: 03-21-2025 lactobacillus combination no .4 (PROBIOTIC) 3 billion cell cap Indications: Gastroesophageal reflux disease with esophagitis, unspecified whether hemorrhage Take 1 capsule by mouth once daily. 30 capsule 10/23/2024 03/21/2025 Discontinued Start: 10-23-2024 lactobacillus combination no.4 (PROBIOTIC) 3 billion cell cap Indications: Gastroesophageal reflux disease with esophagitis, unspecified whether hemorrhage Take 1 capsule by mouth once daily. 30 capsule 10/23/2024 Active Start: 12-22-2022 End: 10-23-2024 lactobacillus combination no .4 (PROBIOTIC) 3 billion cell cap Indications: Gastroesophageal reflux disease with esophagitis, unspecified whether hemorrhage Take 1 capsule by mouth once daily. 30 capsule 12/22/2022 10/23/2024 Discontinued Start: 12-22-2022 lactobacillus combination no.4 (PROBIOTIC) 3 billion cell cap Indications: Gastroesophageal reflux disease with esophagitis, unspecified whether hemorrhage Take 1 capsule by mouth once daily. 30 capsule 12/22/2022 Active Start: 10-23-2020 lactobacillus combination no.4 (PROBIOTIC) 3 billion cell cap Indications: GERD with esophagitis Take 1 capsule by mouth once daily. 30 capsule 10/23/2020 Active Comment on above: Take 1 capsule by mo [facility] once daily. metFORMIN hydrochloride 500 mg oral tablet (9 sources) Biguanide Start: 03-21-2025 take 1 tablet by mouth once daily at dinner metFORMIN (GLUCOPHAGE) 500 mg tablet Indications: Obesity, Class II, BMI 35-39.9 Take 1 tablet by mouth daily with dinner. 90 tablet 1 03/21/2025 Active Start: 03-27-2024 End: 03-21-2025 take 1 tablet by mouth once daily Metformin 500 mg tablet Active 500 mg PO daily December 22, 2024 12:00am naproxen 500 mg oral tablet (20 sources) Nonsteroidal Anti-inflammatory Drug Start: 03-21-2025 take 1 tablet by mouth twice daily as needed for pain naproxen (NAPROSYN) 500 mg tablet Indications: Myalgia Take 1 tablet by mouth two times a day as needed (pain/inflammation, take with food.). 60 tablet 11 03/21/2025 Active Start: 06-25-2023 End: 12-22-2024 take 1 tablet by mouth twice daily as needed for pain Naproxen 250 mg tablet Discontinued 250 mg PO TWICE A DAY as needed for pain June 25, 2023 1:00am December 22, 2024 2:44pm Start: 12-22-2022 End: 03-21-2025 take 1 tablet by mouth twice daily as needed Naproxen 500 mg tablet Active 500 mg PO TWICE A DAY as needed December 22, 2024 12:00am Start: 05-12-2022 End: 06-22-2022 take 1 tablet by mouth twice daily as needed for pain Naproxen 500 mg tablet Discontinued 500 mg PO TWICE DAILY NEEDED as needed for Pain May 12, 2022 12:00am June 22, 2022 12:30pm Start: 09-04-2018 End: 09-24-2021 take 1 tablet by mouth twice daily Naproxen 500 MG tablet Discontinued 500 mg PO TWICE A DAY December 28, 2020 12:00am September 24, 2021 1:38pm Comment on above: Take 1 tablet by claudia th twice daily as needed (pain/inflammation, take with food.). ondansetron 4 mg disintegrating oral tablet (17 sources) Serotonin-3 Receptor Antagonist Start: take 4 mg by mouth every eight hours as needed Ondansetron Active 4 MG PO EVERY 8 HOURS NEEDED February 01, 2022 12:00am Start: 08-24-2019 End: 06-02-2021 take 1 tablet by mouth every eight hours as needed for nausea Ondansetron 4 MG tablet Discontinued 4 mg PO EVERY 8 HOURS NEEDED as needed for Nausea August 24, 2019 1:00am June 02, 2021 11:09am pantoprazole 40 mg delayed release oral tablet (20 sources) Proton Pump Inhibitor Start: 03-21-2025 take 1 tablet by mouth once daily pantoprazole DR (PROTONIX) 40 mg tablet Indications: Gastroesophageal reflux disease with esophagitis, unspecified whether hemorrhage Take 1 tablet by mouth once daily. 30 tablet 5 03/21/2025 Active Start: 06-25-2023 End: 12-22-2024 take 40 mg by mouth once daily Pantoprazole [address] for susp in packet Discontinued 40 mg PO DAILY June 25, 2023 1:00am December 22, 2024 2:44pm Start: 12-22-2022 End: 03-21-2025 take 1 tablet by mouth once daily Pantoprazole (Protonix) 40 mg tablet,delayed release (DR/EC) Active 40 mg PO daily December 22, 2024 12:00am Start: 09-04-2018 End: 09-24-2021 take 1 tablet by mouth once daily Pantoprazole 40 MG tablet Discontinued 40 mg PO DAILY September 04, 2018 1:00am September 24, 2021 1:38pm Comment on above: Take 1 tablet by claudia th once daily. phentermine hydrochloride 37.5 mg oral tablet (11 sources) Sympathomimetic Amine Anorectic Start: End: take 1 tablet by mouth once daily before breakfast Phentermine HCl (ADIPEX-P) 37.5 mg tablet Indications: Obesity, Class II, BMI 35-39.9 Take 1 tablet by mouth daily before breakfast for 30 days. BMI 36.10 30 tablet 2 03/21/2025 04/20/2025 Active Start: 06-16-2023 End: 12-22-2024 take 1 tablet by mouth once daily before breakfast Phentermine HCl (ADIPEX-P) 37.5 mg tablet Indications: Obesity, Class II, BMI 35-39.9 Take 1 tablet by mouth daily before breakfast for 30 days. BMI 36.10 30 tablet 2 03/27/2024 04/26/2024 Active Comment on above: Take 1 tablet by claudia th daily before breakfast for 30 days. BMI 36.10 saccharomyces boulardii 250 mg oral capsule (6 sources) Start: 3 take 1 capsule by mouth twice daily Saccharomyces Boulardii (Daily Probiotic (S. Boulardii)) 250 mg capsule Active 250 mg PO TWICE A DAY June 25, 2023 1:00am topiramate 25 mg oral tablet (14 sources) Start: take 1 tablet by mouth once daily topiramate (TOPAMAX) 25 mg tablet Indications: Obesity, Class II, BMI 35-39.9 Take 1 tablet by mouth daily in the late afternoon. 30 tablet 2 03/21/2025 Active Start: 09-17-2023 End: 03-21-2025 take 1 tablet by mouth once daily Topiramate (Topamax) 25 mg tablet Active 25 mg PO daily December 22, 2024 12:00am Comment on above: Take 1 tablet by claudia th daily in the late afternoon. Completed/Discontinued Medications Medication Drug Class(es) Dates Sig (Normalized) Sig (Original) acetaminophen 325 mg / HYDROcodone bitartrate 5 mg oral tablet (3 sources) Opioid Agonist Start: 10-18-2023 End: 12-22-2024 Hydrocodone-Acetami nophen 5-325 mg tablet Discontinued 1 {tbl} PO EVERY 6 HOURS 12 October 18, 2023 December 22, 2024 2:44pm Start: 10-18-2023 take 1 tablet by claudia th every six hours Hydrocodone-Acetaminophen Active 1 TABLE T PO EVERY 6 HOURS 12 October 18, 2023 acetaminophen 325 mg / oxyCODONE hydrochloride 5 mg oral tablet (6 sources) Opioid Agonist Start: 05-12-2022 End: 06-22-2022 Oxycodone-Acetaminophen (Percocet) 5-325 mg tablet Discontinued 1 {tbl} PO EVERY 6 HOURS as needed for pain 28 01May 12, 2022 June 22, 2022 12:30pm amoxicillin 875 mg / clavulanate 125 mg oral tablet (14 sources) Penicillin-class Antibacterial Start: 10-15-2023 End: 12-22-2024 Amoxicillin-Pot Clavulanate 875-125 mg tablet Discontinued 1 {tbl} PO TWICE A DAY 14 October 15, 2023 12:00am December 22, 2024 2:44pm Start: 10-15-2023 take 1 tablet by claudia th twice daily Amoxicillin-Pot Clavulanate Active 1 TABLET PO TWICE A DAY 14 October 15, 2023 12:00am Start: 01-06-2022 End: 01-28-2022 take 1 tablet by mouth twice daily Amoxicillin-Pot Clavulanate (Augmentin) 500-125 mg tablet Discontinued 1 {tbl} PO TWICE A DAY January 06, 2022 12:00am January 28, 2022 10:23am Take 1 tablet twice daily for 7 days cefTRIAXone 500 mg injection (1 source) Cephalosporin Antibacterial Start: 12-10-2022 End: 12-10-2022 cefTRIAXone 500 mg intramuscular injection (ROCEPHIN) famotidine 40 mg oral tablet (13 sources) Histamine-2 Receptor Antagonist Start: 04-17-2022 End: 06-22-2022 take 1 tablet by mouth at bedtime Famotidine (Pepcid) 40 mg tablet Discontinued 40 mg PO AT BEDTIME May 12, 2022 5:16am June 22, 2022 12:30pm glycopyrrolate 1 mg oral tablet (14 sources) Start: 06-02-2021 End: 09-24-2021 Glycopyrrolate 1 mg tablet Discontinued 1 mg PO 2 to 3 times per day as needed June 02, 2021 1:00am September 24, 2021 1:38pm Lactobacillus Combination No.4 (Probiotic) 3 billion cell capsule (14 sources) Start: 06-02-2021 End: 09-24-2021 take 3 capsules by mouth once daily Lactobacillus Combination No.4 (Probiotic) 3 billion cell capsule Discontinued 3000 MMU CELLS PO DAILY June 02, 2021 11:11am September 24, 2021 1:38pm administer with a meal Start: 06-02-2021 End: 09-24-2021 take 3 capsules by mouth once daily Lactobacillus Combination No.4 (Probiotic) 3 billion cell capsule Discontinued 3000 NMA PO DAILY June 02, 2021 1:00am September 24, 2021 1:38pm administer with a meal Start: 06-02-2021 End: 09-24-2021 take 3 capsules by mouth once daily Lactobacillus Combination No.4 (Probiotic) 3 billion cell capsule Discontinued 3000 MMU CELLS PO DAILY June 02, 2021 12:00am September 24, 2021 12:38pm administer with a meal Start: 06-02-2021 End: 09-24-2021 take 3 capsules by mouth once daily Lactobacillus Combination No.4 (Probiotic) 3 billion cell capsule Discontinued 3000 MMU CELLS PO DAILY June 02, 2021 1:00am September 24, 2021 1:38pm administer with a meal metoclopramide 5 mg oral tablet (7 sources) Dopamine-2 Receptor Antagonist Start: 04-17-2022 End: 06-22-2022 take 1 tablet by mouth 30 minutes before mealtime for nausea and vomiting Metoclopramide Hcl (Reglan) 5 mg tablet Discontinued 5 mg PO before meals as needed for nausea and vomiting April 17, 2022 12:00am June 22, 2022 12:30pm administer 30 minutes before meals penicillin v potassium 500 mg oral tablet (9 sources) Start: 01-28-2022 End: 02-07-2022 take 1 tablet by mouth twice daily Penicillin V Potassium 500 mg tablet Discontinued 500 mg PO TWICE A DAY 30 04January 28, 2022 12:00am February 06, 2022 12:00am February 07, 2022 12:05am Vit No.628-Ddoy-Ovvxp (Classic ) 28 mg iron- 800 mcg tablet (20 sources) Start: 05-12-2022 End: 06-25-2023 Vit No.730-Yvga-Cwehi (Classic ) 28 mg iron- 800 mcg tablet Discontinued 1 {tbl} PO DAILY May 12, 2022 5:16am June 25, 2023 12:04pm Start: 05-12-2022 End: 06-25-2023 take 1 tablet by mouth once daily Vit No.149-Nrkr-Urzoj (Classic ) 28 mg iron- 800 mcg tablet Discontinued 1 TABLET PO DAILY May 12, 2022 5:16am June 25, 2023 12:04pm Start: 05-12-2022 End: 06-25-2023 take 1 tablet by mouth once daily Vit No.246-Seip-Mdkqz (Classic ) 28 mg iron- 800 mcg tablet Discontinued 1 TABLET PO DAILY May 12, 2022 4:16am June 25, 2023 11:04am Start: 06-02-2021 take 1 tablet by claudia th once daily Vit No.904-Eeoz-Hblwj (Classic ) 28 mg iron- 800 mcg tablet Active 1 TABLET PO DAILY June 02, 2021 11:27am Start: 06-02-2021 End: 05-12-2022 Vit No.563-Sjbp-Njk ic (Classic ) 28 mg iron- 800 mcg tablet Discontinued 1 {tbl} PO DAILY June 02, 2021 1:00am May 12, 2022 5:17am Start: 06-02-2021 End: 05-12-2022 take 1 tablet by mouth once daily Vit No.066-Vefx-Thwoh (Classic ) 28 mg iron- 800 mcg tablet Discontinued 1 TABLET PO DAILY June 02, 2021 1:00am May 12, 2022 5:17am Start: 06-02-2021 End: 05-12-2022 take 1 tablet by mouth once daily Vit No.909-Cfii-Zvily (Classic ) 28 mg iron- 800 mcg tablet Discontinued 1 TABLET PO DAILY June 02, 2021 12:00am May 12, 2022 4:17am Start: 06-02-2021 take 1 tablet by claudia th once daily Vit No.503-Gqhc-Ollkm (Classic ) 28 mg iron- 800 mcg tablet Active 1 TABLET PO DAILY 90 90 June 02, 2021 1:00am Problems Active Problems Problem Classification Problem Date Documented Date Episodic/Chronic E Codes: Fall (3 sources) Accidental fall ; Translations: [Unspecified fall, initial encounter] 10-15-2023 Episodic Esophageal disorders (20 sources) Gastroesophageal reflux disease; Translations: [Gastro-esophageal reflux disease without esophagitis] Onset: 05-02-2014 05-02-2014 Chronic Esophageal disorders (1 source) Esophageal disorders; Translations: [Gastroesophageal reflux disease with esophagitis, unspecified whether hemorrhage] Onset: 05-02-2014 Immunizations and screening for infectious disease (2 sources) Contact with and (suspected) exposure to infections with a predominantly sexual mode of transmission; Translations: [Contact with or exposure to venereal diseases] Episodic Intestinal infection (9 sources) Viral gastroenteritis; Translations: [Viral intestinal infection, unspecified] 02-09-2022 Episodic Mood disorders (15 sources) Depressive disorder; Translations: [Depression] Onset: 01-25-2014 01-25-2014 Chronic Nonmalignant breast conditions (20 sources) Abscess of breast; Translations: [Abscess of the breast and nipple] Episodic Comment on above: Right side infection now present again for last week. Small amount of drainage present so was cultured. Will start on Augmentin and topical triple antibiotic and adjust plan of care pending culture results. Follow up for any new/worsening symptoms. All signs of infection discussed and when to call office right away. Nutritional deficiencies (11 sources) Vitamin D deficiency; Translations: [Vitamin D deficiency, unspecified] Onset: 03-27-2024 06-30-2023 Chronic Open wounds of head; neck; and trunk (4 sources) Laceration of lip ; Translations: [Laceration without foreign body of lip, initial encounter] 10-15-2023 Episodic Other complications of ; puerperium affecting management of mother (6 sources) Deliveries by ; Translations: [Encounter for delivery without indication] 05-12-2022 Episodic Comment on above: RLTCS SM boy Amir Other complications of (14 sources) Maternal obesity complicating , childbirth and the puerperium, antepartum; Translations: [Obesity complicating , unspecified trimester] 05-13-2022 Chronic Comment on above: early gct nl Other complications of (20 sources) Obesity complicating , unspecified trimester; Translations: [Obesity complicating , childbirth, or the puerperium, unspecified as to episode of care or not applicable] Chronic Other connective tissue disease (17 sources) Muscle pain; Translations: [Myalgia, unspecified site] Onset: 09-25-2019 09-25-2019 Episodic Other endocrine disorders (20 sources) Polycystic ovary syndrome; Translations: [Polycystic ovarian syndrome] Onset: 03-21-2015 03-21-2015 Chronic Other endocrine disorders (11 sources) Polycystic ovarian syndrome; Translations: [Polycystic ovaries] Chronic Other injuries and conditions due to external causes (3 sources) Dental trauma; Translations: [Unspecified injury of face, initial encounter] 10-18-2023 Episodic Other nervous system disorders (1 source) Other chronic pain; Translations: [Chronic pain of right knee] Onset: 03-21-2025 Chronic Other non-traumatic joint disorders (3 sources) Pain in right knee; Translations: [Pain in joint, lower leg] Onset: 03-21-2025 01-03-2024 Episodic Other nutritional; endocrine; and metabolic disorders (15 sources) Obesity; Translations: [Obesity, unspecified] Onset: 05-02-2014 05-02-2014 Chronic Other nutritional; endocrine; and metabolic disorders (19 sources) Obese class II; Translations: [Obesity, unspecified] Onset: 06-16-2023 06-16-2023 Chronic Other nutritional; endocrine; and metabolic disorders (1 source) Metabolic syndrome X; Translations: [Dysmetabolic syndrome] 03-27-2024 Chronic Other and delivery including normal (20 sources) Supervision of other normal ; Translations: [] Onset: 04-14-2012 Resolved: 12-16-2012 Episodic Comment on above: PRR YADIRA: 2. Amir boy PC:Gris. Spouse:uJlian (Antonette-13) GBS Negative, anatom y nl, fu growth nl. reviewed results of carrier screen, NIPT low risk. declined afp screen. 02/23 growth nl, 03/23 nl growth Other skin disorders (14 sources) Excessive sweating; Translations: [Generalized hyperhidrosis] 11-07-2021 Episodic Other skin disorders (11 sources) Generalized hyperhidrosis; Translations: [Generalized hyperhidrosis] Episodic Other upper respiratory infections (3 sources) Acute upper respiratory infection; Translations: [Acute upper respiratory infection, unspecified] 08-19-2023 Episodic Residual codes; unclassified (14 sources) Varicella status; Translations: [Other specified health status] 05-13-2022 Episodic Comment on above: neg, plan avoidance and vaccination Residual codes; unclassified (20 sources) History of uterine scar from previous surgery; Translations: [Other postprocedural status] Episodic Residual codes; unclassified (20 sources) Other specified health status; Translations: [Other specified conditions influencing health status] Episodic Residual codes; unclassified (8 sources) History of vaccination; Translations: [Personal history of other drug therapy] 04-24-2022 Episodic Comment on above: 02/17/22 Residual codes; unclassified (6 sources) Personal history of other drug therapy; Translations: [Other postprocedural status] Episodic Residual codes; unclassified (2 sources) Infertile 11-07-2021 Episodic Comment on above: Normal HSG 08/2021 Substance-related disorders (20 sources) Marijuana user; Translations: [Cannabis use, unspecified, uncomplicated] Episodic Comment on above: + tox screen @ [facility]; + 12/04/21; 02/17/22:+. Thyroid disorders (20 sources) Goiter; Translations: [Iodine-deficiency related diffuse (endemic) goiter] Onset: 01-25-2014 01-25-2014 Chronic Comment on above: labs and US ordered Unclassified (1 source) Chronic pain of right knee 03-21-2025 Unclassified (1 source) Obesity, Class II, BMI 35-39.9; Translations: [Obesity, Class II, BMI 35-39.9] Onset: 06-16-2023 Past or Other Problems Problem Classification Problem Date Documented Da te Episodic/Chronic Abdominal pain (2 sources) Generalized abdominal pain; Translations: [Generalized abdominal pain] Onset: 11-23-2024 11-23-2024 Episodic Allergic reactions (15 sources) Eczema; Translations: [Dermatitis, unspecified] Onset: 09-25-2019 09-25-2019 Episodic Cancer of cervix (15 sources) Atypical squamous cells of undetermined significance on cervical Papanicolaou smear; Translations: [Atypical squamous cells of undetermined significance on cytologic smear of cervix (ASC-US)] Onset: 03-18-2016 03-18-2016 Episodic Gastrointestinal hemorrhage (2 sources) Hematemesis; Translations: [Hematemesis] Onset: 11-23-2024 11-23-2024 Episodic Menstrual disorders (20 sources) Dysmenorrhea; Translations: [Dysmenorrhea, unspecified] Onset: 02-18-2015 Resolved: 03-21-2015 Chronic Other connective tissue disease (1 source) Myalgia, unspecified site; Translations: [Myalgia] Onset: 09-25-2019 Episodic Other screening for suspected conditions (not mental disorders or infectious disease) (20 sources) Patient encounter status; Translations: [Encounter for nonprocreative screening for genetic disease carrier status] Onset: 12-28-2024 Episodic Comment on above: Carrier for silent c arrier for alpha-thalassemia and 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 FOB tested 12/04/21 neg. for those but positive for 2 others Residual codes; unclassified (8 sources) Immunization status; Translations: [Other specified personal history presenting hazards to health] Onset: 04-14-2012 Resolved: 12-16-2012 07-07-2021 Episodic Screening and history of mental health and substance abuse codes (11 sources) H/O: depression; Translations: [Personal history of other mental and behavioral disorders] Onset: 04-14-2012 Resolved: 12-16-2012 10-15-2023 Episodic Spondylosis; intervertebral disc disorders; other back problems (15 sources) Low back pain; Translations: [Low back pain] Onset: 05-02-2014 05-02-2014 Episodic Unclassified (20 sources) Infertile; Translations: [Infertility] Results Test Name Value Interpretation Reference Range Facility [place] [facility] [place] [facility] Imaging Services [address] [place], [place] [id number] Transvaginal w/Preg MR#: [id number] Acct: [id number] Name: CANDE HENRY Rep #: [id number] : 1990 F 34 From: [place] PCP: Dr. Toby Parada DO Status: REG CLI Study: Transvaginal w/Preg US Date of Exam: 05/15/25 Exam# [id number] Ordering Dr: Arianna Torres PROCEDURE: TRANSVAGINAL W/PREG US 05/15/2025 REASON FOR EXAM: DATING TECHNIQUE: Procedure Code: USTVAGP Modality: US Procedure: TRANSVAGINAL W/PREG US COMPARISON: None FINDINGS Uterus measures 7.7 x 5.6 x 5.4 cm. It is retroverted position. No uterine fibroids are noted. Cervix is closed Intrauterine gestational sac with gestational sac measuring 1.1 cm. Yolk sac measures 2 mm and CRL measures 2 mm. Overall sonographic gestational age of 6 weeks and 0 days with YADIRA of 01/08/2026. heart rate of 111 beats per minute. Right ovary measures 2.1 x 1.7 x 1.2 cm and left ovary measures 3.2 x 2.4 x 1.5 cm. There is normal bilateral symmetrical blood flow within bilateral ovaries. 1.7 x 1.6 x 1.4 cm cyst within left ovary. Moderate free fluid within the left adnexa US/Transvaginal w/Preg US IMPRESSION: Overall sonographic gestational age of 6 weeks and 0 days with YADIRA of 01/08/2026. 1.7 cm cyst within left ovary. Moderate free fluid within the left adnexa. Reading Location: [facility] CC: Dr. Toby Parada DO; Dr. 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 DO Yuliana Lou Susan LPN 04/04/2025 1:00 PM Signed Pt. informed via My Chart. Allergies As of Date: 04/04/2025 Noted Allergy Reaction LATEX 12/22/2022 2 - Rash Date Reviewed: 03/21/2025 Reviewed by: Gilmer Perera LPN - Fully Assessed Prescriptions as of 04/04/2025 - cholecalciferol, Vitamin D3, (VITAMIN D3) 1,250 mcg (50,000 unit) cap capsule Take 1 capsule by mouth one time a week. - cyclobenzaprine (FLEXERIL) 10 mg tablet Take 1 tablet by mouth three times a day as needed for muscle spasm. - diclofenac (VOLTAREN ARTHRITIS PAIN) 1 % topical gel Apply 2 g to affected area four times daily. As needed for joint pain - lactobacillus combination no.4 (PROBIOTIC) 3 billion cell cap Take 1 capsule by mouth once daily. - metFORMIN (GLUCOPHAGE) 500 mg tablet Take 1 tablet by mouth daily with dinner. - naproxen (NAPROSYN) 500 mg tablet Take 1 tablet by mouth two times a day as needed (pain/inflammation, take with food.). - pantoprazole DR (PROTONIX) 40 mg tablet Take 1 tablet by mouth once daily. - topiramate (TOPAMAX) 25 mg tablet Take 1 tablet by mouth daily in the late afternoon. - Phentermine HCl (ADIPEX-P) 37.5 mg tablet Take 1 tablet by mouth daily before breakfast for 30 days. BMI 36.10 Problem List As Of Date 04/04/2025 Noted Resolved with uncertain dates [Z34.90] 04/14/2012 08/19/2012 Quit smoking [Z87.891] 04/14/2012 12/16/2012 Patient requested diagnostic testing [Z01.89] 04/14/2012 07/15/2012 Immunization history incomplete 04/14/2012 12/16/2012 Supervision of other normal [Z34.80] 05/27/2012 12/16/2012 Depression [F32.A] 01/25/2014 Thyromegaly [E01.0] 01/25/2014 Low back pain [M54.50] 05/02/2014 GERD (gastroesophageal reflux disease) [K21.9] 05/02/2014 Obesity [E66.9] 05/02/2014 Secondary amenorrhea [N91.1] 02/18/2015 03/21/2015 PCOS (polycystic ovarian syndrome) [E28.2] 03/21/2015 Atypical squamous cells of undetermined signifi*03/18/2016 GERD with esophagitis [K21.00] 09/25/2019 Eczema [L30.9] 09/25/2019 Myalgia [M79.10] 09/25/2019 Obesity, Class II, BMI 35-39.9 [E66.812] 06/16/2023 Well adult exam [Z00.00] 06/16/2023 Vitamin D deficiency [E55.9] 03/27/2024 Encounter Status:Closed by GILMER PERERA LPN on 04/04/25 Normal [facility] 25(OH)D3 SerPl-mCncon 2024 25-hydroxyvitamin D3 [Mass/Vol] 12.0 ng/mL Low 31.0-80.0 [facility] Comment on above: Order Comment: Speci men Type: BLOOD SPECIMEN Ordering Facility: [facility] Address: [address] [place] [address] Result Comment: Clas sification of 25 [place] Vitamin D status: Deficiency/Insufficiency: < or = 30 ng/ml. Sufficiency/Optimal Levels: 31-80 ng/mL Toxicity: > 100 ng/mL. Test performed by chemiluminescent immunoassay. Performed By: #### 1 989-3 #### [facility] CLIA [id number] [address] [place] [address] [place] [address] [place] CBC W Auto Differential pane l (Bld)on 03-26-2025 Basophils (Bld) [#/Vol] 0.03 10*3/uL Normal <0.11 [facility] Comment on above: Order Comment: Speci men Type: BLOOD SPECIMEN Ordering Facility: [facility] Address: [address] [place] [address] Performed By: #### 5 7021-8 #### [facility] CLIA [id number] [address] [place] [address] [place] Basophils/100 WBC (Bld) 0.3 % Normal [facility] Comment on above: Order Comment: Speci men Type: BLOOD SPECIMEN Ordering Facility: [facility] Address: [address] [place] [address] Performed By: #### 5 7021-8 #### [facility] CLIA [id number] [address] [place] [address] [place] Differential cell count method Nom (Bld) Auto Normal [facility] Comment on above: Order Comment: Speci men Type: BLOOD SPECIMEN Ordering Facility: [facility] Address: [address] [place] [address] Performed By: #### 5 7021-8 #### [facility] CLIA [id number] [address] [place] [address] [place] Eosinophils (Bld) [#/Vol] 0.11 10*3/uL Normal <0.46 [facility] Comment on above: Order Comment: Speci men Type: BLOOD SPECIMEN Ordering Facility: [facility] Address: [address] [place] [address] Performed By: #### 5 7021-8 #### [facility] CLIA [id number] [address] [place] [address] [place] Eosinophils/100 WBC (Bld) 1.1 % Normal [facility] Comment on above: Order Comment: Speci men Type: BLOOD SPECIMEN Ordering Facility: [facility] Address: [address] [place] [address] Performed By: #### 5 7021-8 #### [facility] CLIA [id number] [address] [place] [address] [place] Erythrocyte distribution width (RBC) [Ratio] 14.3 % Normal 11.5-15.0 [facility] Comment on above: Order Comment: Speci men Type: BLOOD SPECIMEN Ordering Facility: [facility] Address: [address] [place] [address] Performed By: #### 5 7021-8 #### [facility] CLIA [id number] [address] [place] [address] [place] Hematocrit (Bld) [Volume fraction] 41.6 % Normal 36.0-46.0 [facility] Comment on above: Order Comment: Speci men Type: BLOOD SPECIMEN Ordering Facility: [facility] Address: [address] [place] [address] Performed By: #### 5 7021-8 #### [facility] CLIA [id number] [address] [place] [address] [place] Hemoglobin (Bld) [Mass/Vol] 13.3 g/dL Normal 11.5-15.5 [facility] Comment on above: Order Comment: Speci men Type: BLOOD SPECIMEN Ordering Facility: [facility] Address: [address] [place] [address] Performed By: #### 5 7021-8 #### [facility] CLIA [id number] [address] [place] [address] [place] Immature granulocytes (Bld) [#/Vol] 0.04 10*3/uL Normal <0.10 [facility] Comment on above: Order Comment: Speci men Type: BLOOD SPECIMEN Ordering Facility: [facility] Address: [address] [place] [address] Performed By: #### 5 7021-8 #### [facility] CLIA [id number] [address] [place] [address] [place] Immature granulocytes/100 WBC (Bld) 0.4 % Normal [facility] Comment on above: Order Comment: Speci men Type: BLOOD SPECIMEN Ordering Facility: [facility] Address: [address] [place] [address] Performed By: #### 5 7021-8 #### [facility] CLIA [id number] [address] [place] [address] [place] Lymphocytes (Bld) [#/Vol] 3.16 10*3/uL Normal 1.00-4.00 [facility] Comment on above: Order Comment: Speci men Type: BLOOD SPECIMEN Ordering Facility: [facility] Address: [address] [place] [address] Performed By: #### 5 7021-8 #### [facility] CLIA [id number] [address] [place] [address] [place] Lymphocytes/100 WBC (Bld) 31.9 % Normal [facility] Comment on above: Order Comment: Speci men Type: BLOOD SPECIMEN Ordering Facility: [facility] Address: [address] [place] [address] Performed By: #### 5 7021-8 #### [facility] CLIA [id number] [address] [place] [address] [place] MCH (RBC) [Entitic mass] 28.2 pg Normal 26.0-34.0 [facility] Comment on above: Order Comment: Speci men Type: BLOOD SPECIMEN Ordering Facility: [facility] Address: [address] [place] [address] Performed By: #### 5 7021-8 #### [facility] CLIA [id number] [address] [place] [address] [place] MCHC (RBC) [Mass/Vol] 32.0 g/dL Normal 30.5-36.0 [facility] Comment on above: Order Comment: Speci men Type: BLOOD SPECIMEN Ordering Facility: [facility] Address: [address] [place] [address] Performed By: #### 5 7021-8 #### [facility] CLIA [id number] [address] [place] [address] [place] MCV (RBC) [Entitic vol] 88.3 fL Normal 80.0-100.0 [facility] Comment on above: Order Comment: Speci men Type: BLOOD SPECIMEN Ordering Facility: [facility] Address: [address] [place] [address] Performed By: #### 5 7021-8 #### [facility] CLIA [id number] [address] [place] [address] [place] Monocytes (Bld) [#/Vol] 0.70 10*3/uL Normal <0.87 [facility] Comment on above: Order Comment: Speci men Type: BLOOD SPECIMEN Ordering Facility: [facility] Address: [address] [place] [address] Performed By: #### 5 7021-8 #### [facility] CLIA [id number] [address] [place] [address] [place] Monocytes/100 WBC (Bld) 7.1 % Normal [facility] Comment on above: Order Comment: Speci men Type: BLOOD SPECIMEN Ordering Facility: [facility] Address: [address] [place] [address] Performed By: #### 5 7021-8 #### [facility] CLIA [id number] [address] [place] [address] [place] Neutrophils (Bld) [#/Vol] 5.86 10*3/uL Normal 1.45-7.50 [facility] Comment on above: Order Comment: Speci men Type: BLOOD SPECIMEN Ordering Facility: [facility] Address: [address] [place] [address] Performed By: #### 5 7021-8 #### [facility] CLIA [id number] [address] [id number] [address] [place] Neutrophils/100 WBC (Bld) 59.2 % Normal [facility] Comment on above: Order Comment: Speci men Type: BLOOD SPECIMEN Ordering Facility: [facility] Address: [address] [place] [address] Performed By: #### 5 7021-8 #### [facility] CLIA [id number] [address] [place] [address] [place] Nucleated RBC (Bld) [#/Vol] 10*3/uL Normal <0.01 [facility] Comment on above: Order Comment: Speci men Type: BLOOD SPECIMEN Ordering Facility: [facility] Address: [address] [place] [address] Performed By: #### 5 7021-8 #### [facility] CLIA [id number] [address] [place] [address] [place] Nucleated RBC/100 WBC (Bld) [Ratio] 0.0 /100 WBC Normal [facility] Comment on above: Order Comment: Speci men Type: BLOOD SPECIMEN Ordering Facility: [facility] Address: [address] [place] [address] Performed By: #### 5 7021-8 #### [facility] CLIA [id number] [address] [place] [address] [place] Platelet mean volume (Bld) [Entitic vol] 10.0 fL Normal 9.0-12.7 [facility] Comment on above: Order Comment: Speci men Type: BLOOD SPECIMEN Ordering Facility: [facility] Address: [address] [place] [address] Performed By: #### 5 7021-8 #### [facility] CLIA [id number] [address] [place] [address] [place] Platelets (Bld) [#/Vol] 340 10*3/uL Normal 150-400 [facility] Comment on above: Order Comment: Speci men Type: BLOOD SPECIMEN Ordering Facility: [facility] Address: [address] [place] [address] Performed By: #### 5 7021-8 #### [facility] CLIA [id number] [address] [place] [address] [place] RBC (Bld) [#/Vol] 4.71 10*6/uL Normal 3.90-5.20 [facility] Comment on above: Order Comment: Speci men Type: BLOOD SPECIMEN Ordering Facility: [facility] Address: [address] [place] [address] Performed By: #### 5 7021-8 #### [facility] CLIA [id number] [address] [place] [address] [place] WBC (Bld) [#/Vol] 9.90 10*3/uL Normal 3.70-11.00 [facility] Comment on above: Order Comment: Speci men Type: BLOOD SPECIMEN Ordering Facility: [facility] Address: [address] [place] [address] Performed By: #### 5 7021-8 #### [facility] CLIA [id number] [address] [place] [address] [place] Comprehensive metabolic 2000 panelon 03-26-2025 Albumin [Mass/Vol] 4.5 g/dL Normal 3.9-4.9 [facility] Comment on above: Order Comment: Speci men Type: BLOOD SPECIMEN Ordering Facility: [facility] Address: [address] [place] [address] Performed By: #### 3 016-3, 2132-9, 98772-6, 15258-1 #### [facility] CLIA [id number] [address] [place] [address] [place] ALP [Catalytic activity/Vol] 45 U/L Normal 34-123 [facility] Comment on above: Order Comment: Speci men Type: BLOOD SPECIMEN Ordering Facility: [facility] Address: [address] [place] [address] Performed By: #### 3 016-3, 2132-03, 15511-1, 44210-9 #### [facility] CLIA [id number] [address] [place] [address] [place] ALT [Catalytic activity/Vol] 21 U/L Normal 7-38 [facility] Comment on above: Order Comment: Speci men Type: BLOOD SPECIMEN Ordering Facility: [facility] Address: [address] [place] [address] Performed By: #### 3 016-3, 2132-03, 09290-8, 58339-4 #### [facility] CLIA [id number] [address] [place] [address] [place] Anion gap [Moles/Vol] 12 mmol/L Normal 8-15 [facility] Comment on above: Order Comment: Speci men Type: BLOOD SPECIMEN Ordering Facility: [facility] Address: [address] [place] [address] Performed By: #### 3 016-3, 2132-03, 63451-0, 06068-9 #### [facility] CLIA [id number] [address] [place] [address] [place] AST [Catalytic activity/Vol] 24 U/L Normal 13-35 [facility] Comment on above: Order Comment: Speci men Type: BLOOD SPECIMEN Ordering Facility: [facility] Address: [address] [place] [address] Performed By: #### 3 016-3, 2132-03, 73375-3, 97518-2 #### [facility] CLIA [id number] [address] [place], [place] [address] [place] Bilirubin [Mass/Vol] mg/dL Low 0.2-1.3 [facility] Comment on above: Order Comment: Speci men Type: BLOOD SPECIMEN Ordering Facility: [facility] Address: [address] [place] [address] Performed By: #### 3 016-3, 9, , #### [facility] CLIA [id number] [address] [place], [place] [address] [place] Calcium [Mass/Vol] 9.6 mg/dL Normal 8.5-10.2 [facility] Comment on above: Order Comment: Speci men Type: BLOOD SPECIMEN Ordering Facility: [facility] Address: [address] [place] [address] Performed By: #### 3 016-3, 2132-03, , 14280-1 #### [facility] CLIA [id number] [address] [place] [address] [place] Chloride [Moles/Vol] 104 mmol/L Normal 98-107 [facility] Comment on above: Order Comment: Speci men Type: BLOOD SPECIMEN Ordering Facility: [facility] Address: [address] [place] [address] Performed By: #### 3 016-3, 2132-03, , #### [facility] CLIA [id number] [address] [place] [address] [place] CO2 [Moles/Vol] 24 mmol/L Normal 22-30 [facility] Comment on above: Order Comment: Speci men Type: BLOOD SPECIMEN Ordering Facility: [facility] Address: [address] [place] [address] Performed By: #### 3 016-3, 2132-03, , #### [facility] CLIA [id number] [address] [place], [place] [address] [place] Creatinine [Mass/Vol] 0.91 mg/dL Normal 0.58-0.96 [facility] Comment on above: Order Comment: Speci men Type: BLOOD SPECIMEN Ordering Facility: [facility] Address: [address] [place] [address] Performed By: #### 3 016-3, 2132-03, , 80734-4 #### [facility] CLIA [id number] [address] [place] [address] [place] eGFRcr SerPlBld CKD-EPI 2020 86 mL/min/1.73m??? Normal >=60 [facility] Comment on above: Order Comment: Jessica wright Type: BLOOD SPECIMEN Ordering Facility: [facility] Address: [address] [place] [address] Result Comment: Emilia mated Glomerular Filtration Rate (eGFR) is calculated using the 2020 CKD-EPI creatinine equation. This equation utilizes serum creatinine, sex, and age as parameters. The creatinine assay has traceable calibration to isotope dilution-mass spectrometry. Refer to KDIGO guidelines for clinical interpretation. In patients with unstable renal function, e.g. those with acute kidney injury, the eGFR may not accurately reflect actual GFR. Performed By: #### 3 016-3, 2131-9, 44989-2, 88693-0 #### [facility] CLIA [id number] [address] [place] [address] [place] Glucose [Mass/Vol] 82 mg/dL Normal 74-99 [facility] Comment on above: Order Comment: Jessica wright Type: BLOOD SPECIMEN Ordering Facility: [facility] Address: [address] [place] [address] Result Comment: The [place] [employer] (ADA) provides guidance for cutoff values for fasting glucose and random glucose. The ADA defines fasting as no caloric intake for at least 8 hours. Fasting plasma glucose results between 100 to 125 mg/dL indicate increased risk for diabetes (prediabetes). Fasting plasma glucose results greater than or equal to 126 mg/dL meet the criteria for diagnosis of diabetes. In the absence of unequivocal hyperglycemia, results should be confirmed by repeat testing. In a patient with classic symptoms of hyperglycemia or hyperglycemic crisis, random plasma glucose results greater than or equal to 200 mg/dL meet the criteria for diagnosis of diabetes. Reference: Standards of Medical Care in Diabetes 2016, [place] [employer]. Diabetes Care. 2016.39(Suppl 1). Performed By: #### 3 016-3, 2131-9, 16266-3, 96032-3 #### [facility] CLIA [id number] [address] [place] [address] [place] Potassium [Moles/Vol] 4.5 mmol/L Normal 3.7-5.1 [facility] Comment on above: Order Comment: Speci men Type: BLOOD SPECIMEN Ordering Facility: [facility] Address: [address] [place] [address] Performed By: #### 3 016-3, 2132-03, , 25299-4 #### [facility] CLIA [id number] [address] [place], [place] [address] [place] Protein [Mass/Vol] 7.2 g/dL Normal 6.3-8.0 [facility] Comment on above: Order Comment: Speci men Type: BLOOD SPECIMEN Ordering Facility: [facility] Address: [address] [place] [address] Performed By: #### 3 016-3, 2132-03, , 01255-6 #### [facility] CLIA [id number] [address] [place] [address] [place] Sodium [Moles/Vol] 140 mmol/L Normal 136-144 [facility] Comment on above: Order Comment: Speci men Type: BLOOD SPECIMEN Ordering Facility: [facility] Address: [address] [place] [address] Performed By: #### 3 016-3, 2132-03, , 50177-4 #### [facility] CLIA [id number] [address] [place], [place] [address] [place] Urea nitrogen [Mass/Vol] 15 mg/dL Normal 7-21 [facility] Comment on above: Order Comment: Speci men Type: BLOOD SPECIMEN Ordering Facility: [facility] Address: [address] [place] [address] Performed By: #### 3 016-3, 2132-03, , 92284-7 #### [facility] CLIA [id number] [address] [place] [address] [place] Insulin SerPl-aCncon 025 Insulin Qn 9.6 uU/mL Normal 2.6-24.9 [facility] Comment on above: Order Comment: Speci men Type: BLOOD SPECIMEN Ordering Facility: [facility] Address: [address] [place] [address] Result Comment: Refe rence intervals established for fasting specimens. Performed By: #### 2 0448-7 #### [facility] CLIA [id number] [address] [place] [address] [place] Lipid 1996 panelon 5 Cholesterol [Mass/Vol] 176 mg/dL Normal <200 [facility] Comment on above: Order Comment: Speci men Type: BLOOD SPECIMEN Ordering Facility: [facility] Address: [address] [place] [address] Result Comment: <200 mg/dL, Desirable 200-239 mg/dL, Borderline high >239 mg/dL, High Performed By: #### 3 016-3, 9, 94961-5, 93920-6 #### [facility] CLIA [id number] [address] [place] [address] [place] Cholesterol in HDL [Mass/Vol] 76 mg/dL Normal >39 [facility] Comment on above: Order Comment: Speci men Type: BLOOD SPECIMEN Ordering Facility: [facility] Address: [address] [place] [address] Result Comment: 40-5 9 mg/dL, Acceptable >59 mg/dL, High: Negative risk factor for coronary heart disease <40 mg/dL, Low: Positive risk factor for coronary heart disease Performed By: #### 3 016-3, 2132-03, 47784-9, 43418-9 #### [facility] CLIA [id number] [address] [place], [place] [id number] [place] Cholesterol in LDL [Mass/Vol] 80 mg/dL Normal <100 [facility] Comment on above: Order Comment: Jessica wright Type: BLOOD SPECIMEN Ordering Facility: [facility] Address: [address] [place] [address] Result Comment: <100 mg/dL, Optimal 100-129 mg/dL, Near optimal/above optimal 130-159 mg/dL, Borderline high 160-189 mg/dL, High >189 mg/dL, Very high Secondary prevention optimal LDL Cholesterol levels are recommended to be <70 mg/dL LDL cholesterol is calculated using the Freeman-NIH equation. Performed By: #### 3 016-3, 2132-03, , 47987-5 #### [facility] CLIA [id number] [address] [place] [address] [place] Cholesterol in LDL/Cholesterol in HDL [Mass ratio] 1.05 {ratio} Normal <2.54 [facility] Comment on above: Order Comment: Jessica wright Type: BLOOD SPECIMEN Ordering Facility: [facility] Address: [address] [place] [address] Result Comment: Refe rence: 1. National Cholesterol Education Program ATP III Guideline At-A-Glance Quick Desk Reference: National Heart, Lung, and Blood [place]. National Institutes of Health. 2001: NIH Publication No. 01-3305. 2. An International Atherosclerosis Society position paper: global recommendations for the management of dyslipidemia: executive summary, Atherosclerosis. 2014: 232(2):410-413. Performed By: #### 3 016-3, 2132-03, , 03415-1 #### [facility] CLIA [id number] [address] [place] [address] [place] Cholesterol in VLDL [Mass/Vol] 18 mg/dL Normal <30 [facility] Comment on above: Order Comment: Jessica wright Type: BLOOD SPECIMEN Ordering Facility: [facility] Address: [address] [place] [address] Performed By: #### 3 016-3, 2132-03, 37003-6, 67291-4 #### [facility] CLIA [id number] [address] [place] [address] [place] Cholesterol non HDL [Mass/Vol] 100 mg/dL Normal <130 [facility] Comment on above: Order Comment: Speci men Type: BLOOD SPECIMEN Ordering Facility: [facility] Address: [address] [place] [address] Result Comment: <130 mg/dL, Optimal 130-159 mg/dL, Near optimal/above optimal 160-189 mg/dL, Borderline high 190-219 mg/dL, High >219 mg/dL, Very high Secondary prevention optimal non HDL Cholesterol levels are recommended to be <100 mg/dL Performed By: #### 3 016-3, 9, 46585-1, 78190-8 #### [facility] CLIA [id number] [address] [place] [address] [place] Cholesterol.total/Cho lesterol in HDL [Mass ratio] 2.32 {ratio} Normal <5.10 [facility] Comment on above: Order Comment: Speci men Type: BLOOD SPECIMEN Ordering Facility: [facility] Address: [address] [place] [address] Performed By: #### 3 016-3, 9, , 77500-3 #### [facility] CLIA [id number] [address] [place] [address] [place] FASTING TIME 12 hrs Normal [facility] Comment on above: Order Comment: Speci men Type: BLOOD SPECIMEN Ordering Facility: [facility] Address: [address] [place] [address] Performed By: #### 3 016-3, 9, 46950-1, 96887-5 #### [facility] CLIA [id number] [address] [place] [address] [place] Triglyceride [Mass/Vol] 118 mg/dL Normal <150 [facility] Comment on above: Order Comment: Speci men Type: BLOOD SPECIMEN Ordering Facility: [facility] Address: [address] [place] [address] Result Comment: <150 mg/dL, Normal 150-199 mg/dL, Borderline high 200-499 mg/dL, High >499 mg/dL, Very high Performed By: #### 3 016-3, 2132-03, , 04692-5 #### [facility] CLIA [id number] [address] [place] [address] [place] TSH SerPl-aCncon 03-26-2025 TSH Qn 1.640 m[IU]/L Normal 0.270-4.200 [facility] Comment on above: Order Comment: Speci men Type: BLOOD SPECIMEN Ordering Facility: [facility] Address: [address] [place] [address] Result Comment: If t he patient is , TSH reference range varies by gestational period: First Trimester (weeks 9-12): 0.180-2.990 mIU/L Second Trimester: 0.110-3.980 mIU/L Third Trimester: 0.480-4.710 mIU/L Darren Whitney et al. A Practical Approach for the Verifications and Determination of Site- and Trimester-Specific Reference Intervals for Thyroid Function tests in . Thyroid, 2019:29:3:412-420. Get E, et al. 2017 Guidelines of the [place] Thyroid Association for the Diagnosis and Management of Thyroid Disease during and the . Thyroid, 2017:27:3:315-389. Performed By: #### 3 016-3, 9, , 91953-6 #### [facility] CLIA [id number] [address] [place] [address] [place] Vit B12 SerPl-mCncon 025 Cobalamin (Vitamin B12) [Mass/Vol] 484 pg/mL Normal 232-1245 [facility] Comment on above: Order Comment: Speci men Type: BLOOD SPECIMEN Ordering Facility: [facility] Address: [address] [place] [address] Performed By: #### 3 016-3, 2132-03, , 00216-1 #### [facility] CLIA [id number] [address] [place] [address] [place] CNOVon 03-21-2025 CNOV Office Visit (FAMPWS ) -------- CANDE HENRY ([id number]) 1990 F Date Time Provider Department 03/21/25 3:00 PM [facility] During your visit today, we recorded the following information about you: Temperature Pulse Respiration Blood pressure 97.5 degrees 64/minute 16/minute 114/74 Weight Last Period 99.8 kg 02/19/25 Toby Parada, 03/21/2025 10:00 PM Signed CC: Cande Henry is a 34 year old female who presents to the office for follow up HPI: Obesity, wanting to continue to work on weight loss. Has been trying to cut down on her sugars and starches in her diet. Struggling to cut back on portions. She was last on adipex about 1 year ago. She had lost 4lbs but admited she didn't start the medication right away due to an illness. Previously she tolerated the adipex medication well without obvious SE to medication. Weight is down to 220 lbs. She would like to restart the medication. She has had some stressors in the last year since her family lost their home of residence and had to move into a hotel setting until able to find a new home, this was almost 1 year of time. They are now back into a home and settling in which is helping her stressors. Right knee pain, she wasn't able to get her xray completed, needing to have this ordered again PAST MEDICAL HISTORY Diagnosis Date Atypical squamous cells of undetermined significance (ASCUS) on Papanicolaou smear of cervix 03/18/2016 Chlamydia 2010 Depression 01/25/2014 PCOS (polycystic ovarian syndrome) Thyromegaly 01/25/2014 PAST SURGICAL HISTORY Procedure Laterality Date DELIVERY ONLY 12/10/12 , low transverse Social History: SOCIAL HISTORY[1] FAMILY HISTORY Problem Relation Age of Onset Hypertension Mother Thyroid Mother Current Outpatient prescriptions: cholecalciferol, Vitamin D3, (VITAMIN D3) 1,250 mcg (50,000 unit) cap capsule Take 1 capsule by mouth one time a week. cyclobenzaprine (FLEXERIL) 10 mg tablet Take 1 tablet by mouth three times a day as needed for muscle spasm. diclofenac (VOLTAREN ARTHRITIS PAIN) 1 % topical gel Apply 2 g to affected area four times daily. As needed for joint pain lactobacillus combination no.4 (PROBIOTIC) 3 billion cell cap Take 1 capsule by mouth once daily. metFORMIN (GLUCOPHAGE) 500 mg tablet Take 1 tablet by mouth daily with dinner. naproxen (NAPROSYN) 500 mg tablet Take 1 tablet by mouth two times a day as needed (pain/inflammation, take with food.). pantoprazole DR (PROTONIX) 40 mg tablet Take 1 tablet by mouth once daily. topiramate (TOPAMAX) 25 mg tablet Take 1 tablet by mouth daily in the late afternoon. Phentermine HCl (ADIPEX-P) 37.5 mg tablet Take 1 tablet by mouth daily before breakfast for 30 days. BMI 36.10 Allergies: ALLERGIES Allergen Reactions Latex Rash ROS: See HPI PE: 03/21/25 1451 BP: 114/74 Pulse: 64 Resp: 16 Temp: 36.4 ?C (97.5 ?F) TempSrc: Left Tympanic Weight: 99.8 kg (220 lb) Gen: AANDO, NAD, non-toxic appearing, Pleasant, cooperative [...] intact, No rashes or lesions on exposed skin. No edema ASSESSMENT/PLAN: 1. Well adult exam - ICD9: V70.0, ICD10: Z00.00 (primary diagnosis) - Counseled on healthy diet and regular exercise - Discussed need and benefit for weight loss. BMI 34.53 kg/(m2) - INSULIN, TOTAL, SERUM - COMPREHENSIVE METABOLIC PANEL - COMPLETE BLOOD COUNT AND DIFFERENTIAL - LIPID PANEL, FASTING - THYROID STIMULATING HORMONE - VITAMIN D 25 HYDROXY - VITAMIN B12 2. Vitamin D deficiency - ICD9: 268.9, ICD10: E55.9 rx refilled Recheck labs - CHOLECALCIFEROL (VITAMIN D3) 1,250 MCG (50,000 UNIT) CAPSULE 3. Myalgia - ICD9: 729.1, ICD10: M79.10 rx refilled, recheck labs. - CYCLOBENZAPRINE 10 MG TABLET - NAPROXEN 500 MG TABLET 4. Gastroesophageal reflux disease with esophagitis, unspecified whether hemorrhage - ICD9: 530.11, ICD10: K21.00 - Discussed lifestyle modifications including losing weight, limiting caffeine, no meals three hours before sleep, and head of bed elevation - PROBIOTIC 3 BILLION CELL CAPSULE - PANTOPRAZOLE 40 MG TABLET,DELAYED RELEASE 5. Obesity, Class II, BMI 35-39.9 - ICD9: 278.00, ICD10: E66.812 Weight increasing - Behavior (more content not included)... Normal [facility] CNCOon 02-23-2025 CNCO Letter Text Normal [facility] PAP IG HPV APTIMA 16/18,45on 12-26-2024 ADEQ Comment Normal . [facility] Comment on above: Order Comment: Jessica wright Comment: [id number] Specimen Comment: No. of containers..01 ThinPrep Vial Result Comment: Sati sfactory for evaluation. No endocervical component is identified. Performed By: #### L 7400.0280 #### [facility] [address] [place], [address] COMM . Normal . [facility] Comment on above: Order Comment: Speci men Comment: [id number] Specimen Comment: No. of containers..01 ThinPrep Vial Performed By: #### L 7400.0280 #### [facility] [address] [place], [address] COMMENT Comment Normal . [facility] Comment on above: Order Comment: Speci men Comment: [id number] Specimen Comment: No. of containers..01 ThinPrep Vial Result Comment: This liquid based ThinPrep(R) pap test was screened with the use of an image guided system. Performed By: #### L 7400.0280 #### [facility] [address] [place], [address] DIAG Comment Normal . [facility] Comment on above: Order Comment: Speci men Comment: [id number] Specimen Comment: No. of containers..01 ThinPrep Vial Result Comment: NEGA TIVE FOR INTRAEPITHELIAL LESION OR MALIGNANCY. Performed By: #### L 7400.0280 #### [facility] [address] [place], [address] HPV APTIMA, HR Negative Normal Negative [facility] Comment on above: Order Comment: Speci men Comment: [id number] Specimen Comment: No. of containers..01 ThinPrep Vial Result Comment: This nucleic acid amplification test detects fourteen high- risk HPV types (16,18,31,33,35,39,45,51,52,56,58,59,66,68) without differentiation. Performed By: #### L 7400.0280 #### [facility] [address] [place], [address] HPV Fatimah Rfx Comment Normal . [facility] Comment on above: Order Comment: Speci men Comment: [id number] Specimen Comment: No. of containers..01 ThinPrep Vial Result Comment: Crit eria not met, HPV Genotype not performed. Performed at: [address], [place] [id number] Tank Car Reconditioner: Jessica Hill MD, Phone: [phone] Performed at: =[address] [id number] Tank Car Reconditioner: Jessica Hill MD, Phone: [phone] Performed By: #### L 7400.0280 #### [facility] [address] [place], [place], [address] PAPSMR Comment Normal . [facility] Comment on above: Order Comment: Speci men Comment: [id number] Specimen Comment: No. of containers..01 ThinPrep Vial Result Comment: The Pap smear is a screening test designed to aid in the detection of premalignant and malignant conditions of the uterine cervix. It is not a diagnostic procedure and should not be used as the sole means of detecting cervical cancer. Both false-positive and false-negative reports do occur. Performed By: #### L 7400.0280 #### [facility] [address] [place], [place], [address] PERFORM Comment Normal . [facility] Comment on above: Order Comment: Speci men Comment: [id number] Specimen Comment: No. of containers..01 ThinPrep Vial Result Comment: Clara Ndiaye, Associate Dean (ASCP) Performed By: #### L 7400.0280 #### [facility] [address] [place], [place], [address] Cervical or vaginal specimen microscopic examination by liquid based cytology (reportOrdered By: Patricia Armenta on 12-22-2024 Cytology report Cyto stain.thin prep Doc (Cvx/Vag) Comment . [facility] Comment on above: Criteria not met, HP V Genotype not performed.Performed at: [address] [id number] Director: Jessica Hill MD, Phone: [phone] at: =[address] [id number] Director: Jessica Hill MD, Phone: [phone] Cervical or vagninal specime n microscopic examination by cytology stain (reported asOrdered By: Patricia Armenta on 12-22-2024 Cytology report Cyto stain Doc (Cvx/Vag) Comment . [facility] Comment on above: The Pap smear is a s creening test designed to aid in thedetection of premalignant and malignant conditions of theuterine cervix. It is not a diagnostic procedure andshould not be used as the sole means of detecting cervicalcancer. Both false-positive and false-negative reports dooccur. Detection in cervical specim en of any of human papilloma virus (HPV) 16, 18, 31, 33,Ordered By: Patricia Armenta on 12-22-2024 HPV 16+18+31+33+35+39+45+ 51+52+56+58+59+66+68 DNA Probe+sig amp Ql (Cvx) Negative Negative [facility] Comment on above: This nucleic acid am plification test detects fourteen high- risk HPV types (16,18,31,33,35,39,45,51,52,56,58,59,66,68)without differentiation. Laboratory - CytologyOrdered By: Patricia Armenta on 12-22-2024 Associate Dean Cyto stain Nom (Cvx/Vag) [ID] Comment . [facility] Comment on above: Clara Ndiaye, Cytolog ist (ASCP) Laboratory - Miscellaneous t estsOrdered By: Patricia Armenta on 12-22-2024 Service comment (Unsp spec) [Interp] . . [facility] No Panel InformationOrdered By: Patricia Armenta on 12-22-2024 Pap Smear Specimen Adequacy Comment . [facility] Comment on above: Satisfactory for nessa luation. No endocervical component is identified. Alfalfa Dehydrator Operator Office Visit Reporton 12-22-2024 Alfalfa Dehydrator Operator Office Visit Report [facility] [address], [address] [place] [address] OFFICE VISIT Date of Service: 12/22/24 MR#: [id number] Acct: [id number] Name: ELAINECANDETIMOTHY MICHELLE Rep #: [id number] : 1990 Provider: Dr. 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 boulardii)) cholecalciferol (vitamin D3) 1,250 1,250 mcg PO QMONTH 12/22/24 History mcg (50,000 unit) capsule cyclobenzaprine 10 mg tablet 10 mg PO TID PRN 12/22/24 12/22/24 History diclofenac sodium 1 % topical gel 2 g topical ONCE 12/22/24 5 History metformin 500 mg tablet 500 mg PO QDAY 12/22/24 12/22/24 H istory naproxen 500 mg tablet 500 mg PO BID PRN 12/22/24 5 History pantoprazole 40 mg tablet,delayed 40 mg PO QDAY 12/22/24 12/22/24 H istory release (Protonix) topiramate 25 mg tablet (Topamax) 25 mg PO QDAY 12/22/24 12/22/24 H istory Post menopausal: No Patient : No : No PFSH Medical History Thyromegaly Depression GERD (gastroesophageal reflux disease) Surgical History S/P History of cholecystectomy Family History (Updated 12/22/24 @ 14:47 by Brandie Valnetine) Mother Hypertension Thyroid disorder Father Diabetes Social History adopted: No household members: spouse and children number of children: 1 current occupational status: employed current occupation: [employer] pets and animals: Yes pets and animals: dog(s) Smoking Status: Former smoker alcohol intake: current details: occasionally/not while substance use type: does not use caffeine: Yes what type of physical activity do you participate in: none seatbelt use: always do you feel safe at home: Yes additional social history: -Julian (daughter Antonette from previous relationship) History 2 Elective abortions Hx Para 2 Spontaneous abortions Hx # Term Pregnancies Ectopic pregnancies Hx # Pregnancies Multiple births # of living children 2 Past Pregnancies Del. Date Name GA/Weeks Outcome Route Bth Weight Infant Gen Labor Lgth Anesthesia Del Locatn Provider FOB 12/10/12 Gris 40 live - full term Female [facility] Dr Jenna Jordan 05/12/22 Amir live - full term Male [facility] Alex rcanthony Delivery Date: 12/10/12 Last Updated by: Brandie Valentine Arrest of dilation at 7cm Delivery Date: 05/12/22 Last Updated by: Jenelle Crowley [facility] HPI Encounter for routine gynecological examination Details: CANDE HENRY is a 34 year old who presents for annual exam. Last PAP: 10/09/21 - ascus. hpv neg History of abnormal PAP:ascus Last mammogram: n/a History of abnormal mammogram: n/a Colon cancer screening: n/a Other preventative health care screenings: followed by pcp Female Reproductive History Cycle Length: 21-35 Bleeding Duration: 5 Questions: metorrhagia: No, sexually active: Yes, dyspareunia: No and PCB: No Menopausal Symptoms: No hot flashes, No night sweats, No weight change, No mood changes, No difficulty concentrating, No sleep problems and No change in libido ROS Const Constitutional: Reports as per HPI; Denies fatigue, increased appetite, poor appetite, night sweats, weight gain or weight loss Cardio Card: Denies chest pain Resp Resp: Denies cough or dyspnea GI GI: Reports as per HPI; Denies abdominal pain, bloating, constipation, nausea or vomiting : Reports as per HPI and other; Denies difficulty voiding, dysuria, hematuria, hot flashes, nipple discharge, pelvic pain, prolapse symptoms, urinary frequency, urinary incontinence, urinary urgency, vaginal discharge, vaginal dry ness, vaginal odor or vaginal pruritus Skin Skin/Breast: Denies changing lesions, breast mass, breast pain, breast skin changes or nipple discharge Psych Psych: Denies anxiety, change in libido, depression or difficulty concentrating Exam Const General: cooperative, healthy appearing, comfortable, no acute distress, well developed and we (more content not included)... [facility] Office Visit (UCWSTR ) -------- CANDE HENRY ([id number]) 1990 F Date Time Provider Department 11/23/24 3:45 PM PRECIOUS [facility] During your visit today, we recorded the following information about you: Temperature Pulse Respiration Blood pressure 98.5 degrees 102/minute 20/minute 145/96 Weight Last Period 95 kg 11/02/24 Precious Moses PA 11/23/2024 4:08 PM Signed [facility] Subjective Cande Henry is a 34 year old female. Patient presents with: Abdominal Pain: Vomiting, diarrhea x 1 day HPI Emesis and Hematemesis: - Onset today. - Two episodes of emesis; second episode with hematemesis, described as streaked with blood. - No further emesis since the second episode. - Able to tolerate oral fluids since the last episode. Diarrhea: - One episode today. - Denies hematochezia or melena. Abdominal Pain: - Severe abdominal pain, rated 10/10. - Described as crampy and localized to the upper abdomen. - Pain exacerbated by sitting up straight. - No analgesics taken. Review of Systems Ears/Nose/Mouth/Throat: (-) runny nose, (-) sore throat Respiratory: (+) cough Gastrointestinal: (+) vomiting with blood streaks, (+) diarrhea, (+) abdominal pain, (-) blood in stool, (-) black/tarry stool Objective BP 145/96 Pulse 102 Temp 36.9 ?C (98.5 ?F) Resp 20 Wt 95 kg (209 lb 7 oz) LMP 11/02/2024 (Approximate) SpO2 99% BMI 32.87 kg/m? Physical Exam General: No acute distress. HEENT: Oral mucosa moist. Abd: Tenderness to palpation in the upper abdomen. {1. Hematemesis with nausea (K92.0) 2. Generalized abdominal pain (R10.84) - Hematemesis with two episodes of vomiting today, one with blood streaks. Severe generalized abdominal pain rated 10/10, described as crampy, with difficulty sitting up straight. One episode of diarrhea, no hematochezia or melena. Mild cough, no other URI symptoms. - Abdominal pain and hematemesis concerning for potential underlying condition; differential includes viral gastroenteritis, but severity of pain necessitates further evaluation. - Advised immediate evaluation in the emergency room for abdominal imaging and further diagnostic workup. and Recording using [employer] software for draft documentation of the visit was discussed with the patient/authorized tax compliance representative; all questions welcomed and answered. Patient/authorized tax compliance representative agreed to proceed MDM Procedures Allergies As of Date: 11/23/2024 Noted Allergy Reaction LATEX 12/22/2022 2 - Rash Date Reviewed: 11/23/2024 Reviewed by: Tina Herrera LPN - Fully Assessed Reason for Visit: Abdominal Pain [1] Cmt: Vomiting, diarrhea x 1 day Primary Visit Diagnosis:Generalized abdominal pain [R10.84] Other Visit Diagnosis:Hematemesis with nausea [K92.0] Prescriptions as of 11/23/2024 - pantoprazole DR (PROTONIX) 40 mg tablet Take 1 tablet by mouth once daily. - cholecalciferol, Vitamin D3, (VITAMIN D3) 1,250 mcg (50,000 unit) cap capsule Take 1 capsule by mouth one time a week. - topiramate (TOPAMAX) 25 mg tablet Take 1 tablet by mouth daily in the late afternoon. - diclofenac (VOLTAREN ARTHRITIS PAIN) 1 % topical gel Apply 2 g to affected area four times daily. As needed for joint pain - metFORMIN (GLUCOPHAGE) 500 mg tablet Take 1 tablet by mouth daily with dinner. - cyclobenzaprine (FLEXERIL) 10 mg tablet Take 1 tablet by mouth three times a day as needed for muscle spasm. - naproxen (NAPROSYN) 500 mg tablet Take 1 tablet by mouth two times a day as needed (pain/inflammation, take with food.). - lactobacillus combination no.4 (PROBIOTIC) 3 billion cell cap Take 1 capsule by mouth once daily. Problem List As Of Date 11/23/2024 Noted Resolved with uncertain dates [Z34.90] 04/14/2012 08/19/2012 Quit smoking [Z87.891] 04/14/2012 12/16/2012 Patient requested diagnostic testing [Z01.89] 04/14/2012 07/15/2012 Immunization history incomplete 04/14/2012 12/16/2012 Supervision of other normal [Z34.80] 05/27/2012 12/16/2012 Depression [F32.A] 01/25/2014 Thyromegaly [E01.0] 01/25/2014 Low back pain [M54.50] 05/02/2014 GERD (gastroesophageal reflux disease) [K21.9] 05/02/2014 Obesity [E66.9] 05/02/2014 Secondary amenorrhea [N91.1] 02/18/2015 03/21/2015 PCOS (polycystic ovarian syndrome) [E28.2] 03/21/2015 Atypical squamous cells of undetermined signifi*03/18/2016 GERD with esophagitis [K21.00] 09/25/2019 Eczema [L30.9] 09/25/2019 Myalgia [M79.10] 09/25/2019 Obesity, Class II, BMI 35-39.9 [E66.812] 06/16/2023 Well adult exam [Z00.00] 06/16/2023 Vitamin D deficiency [E55.9] 03/27/2024 Encounter Status:Closed by PRECIOUS MOSES on 11/23/24 Normal [facility] CNOVon 09-02-2024 CNOV Office Visit (UCWSTR ) -------- CANDE HENRY ([id number]) 1990 F Date Time Provider Department 09/02/24 12:00 PM ZINA VILLARREAL [facility] During your visit today, we recorded the following information about you: Temperature Pulse Respiration Blood pressure 97.5 degrees 86/minute 18/minute 137/85 Weight 95.4 kg Zina Villarreal APRN.E TAILER 09/02/2024 12:15 PM Signed CC: Patient presents with: Fever: Cough, chest congestion x3 days HPI: Cande Henry is a 34 year old female who presents to the office with complaint of chest congestion, head congestion, and cough, nonproductive for 3 days. Symptoms are staying the same. Associated symptoms includes cough. Denies wheezing, dyspnea, nausea, vomiting , and diarrhea. Treatments tried include nothing so far. with no relief of symptoms. Sick contacts: unknown. History of asthma, frequent episodes of bronchitis, chronic bronchitis, bronchiectasis or COPD: No Smoker: No Seasonal/environmental allergies: No The ROS is otherwise negative. The patient's pmh, medications, allergies, and past visits are reviewed. PHYSICAL EXAM: BP 137/85 Pulse 86 Temp 36.4 ?C (97.5 ?F) Resp 18 Wt 95.4 kg (210 lb 5.1 oz) LMP 12/27/2023 (Exact Date) SpO2 100% BMI 33.01 kg/m? General appearance: alert, cooperative, pleasant, in no acute distress Head: Normocephalic Eyes: EOM's intact, conjunctiva pink and moist, no icterus, sclera white, non-injected Ears: Right ear: External ear/canal- Normal, TM - clear with good landmarks. Left ear: External ear/canal- Normal, TM - clear with good landmarks Oropharynx:moist without lesions, No erythema, exudates or tonsillar hypertrophy. Heart: Negative. RRR without obvious murmur, gallop, or rubs. No ectopy. Lungs: clear to auscultation, without rales or wheeze, good air exchange PAST MEDICAL HISTORY Diagnosis Date Atypical squamous cells of undetermined significance (ASCUS) on Papanicolaou smear of cervix 03/18/2016 Chlamydia 2010 Depression 01/25/2014 PCOS (polycystic ovarian syndrome) Thyromegaly 01/25/2014 PAST SURGICAL HISTORY Procedure Laterality Date DELIVERY ONLY 12/10/12 , low transverse ALLERGIES Latex MEDICATIONS metFORMIN (GLUCOPHAGE) 500 mg tablet Take 1 tablet by mouth daily with dinner. topiramate (TOPAMAX) 25 mg tablet Take 1 tablet by mouth daily in the late afternoon. diclofenac (VOLTAREN ARTHRITIS PAIN) 1 % topical gel Apply 2 g to affected area four times daily. As needed for joint pain cholecalciferol, Vitamin D3, (VITAMIN D3) 1,250 mcg (50,000 unit) cap capsule Take 1 capsule by mouth one time a week. pantoprazole DR (PROTONIX) 40 mg tablet Take 1 tablet by mouth once daily. cyclobenzaprine (FLEXERIL) 10 mg tablet Take 1 tablet by mouth three times daily as needed for muscle spasm. naproxen (NAPROSYN) 500 mg tablet Take 1 tablet by mouth twice daily as needed (pain/inflammation, take with food.). lactobacillus combination no.4 (PROBIOTIC) 3 billion cell cap Take 1 capsule by mouth once daily. FAMILY HISTORY Problem Relation Age of Onset Hypertension Mother Thyroid Mother Social History Tobacco Use Smoking status: Former Current packs/day: 0.00 Types: Cigarettes Start date: 03/15/2011 Quit date: 03/15/2012 Years since quittin.4 Smokeless tobacco: Never Substance Use Topics Alcohol use: Yes Comment: weekends Drug use: No ASSESSMENT/PLAN: 1. URI, acute - ICD9: 465.9, ICD10: J06.9 - COVID AND INFLUENZA A/B AND RSV PCR, ROUTINE Prescription instructions reviewed with patient as applicable. Potential red flag symptoms discussed with the patient. Reviewed appropriate action plan to take if red flag symptoms occur. Patient agreeable to treatment plan. Zina Villarreal APRN.E TAILER Allergies As of Date: 09/02/2024 Noted Allergy Reaction LATEX 12/22/2022 2 - Rash Date Reviewed: 09/02/2024 Reviewed by: Jessica Gilbert MA - Fully Assessed Reason for Visit: Fever [47] Cmt: Cough, chest congestion x3 days Primary Visit Diagnosis:URI, acute [J06.9] Order(s):COVID AND INFLUENZA A/B AND RSV PCR, ROUTINE [[id number]] Order #: [id number]. #:[id number] Prescriptions as of 09/02/2024 - metFORMIN (GLUCOPHAGE) 500 mg tablet Take 1 tablet by mouth daily with dinner. - topiramate (TOPAMAX) 25 mg tablet Take 1 tablet by mouth daily in the late afternoon. - diclofenac (VOLTAREN ARTHRITIS PAIN) 1 % topical gel Apply 2 g to affected area four times daily. As needed for joint pain - cholecalciferol, Vitamin D3, (VITAMIN D3) 1,250 mcg (50,000 unit) cap capsule Take 1 capsule by mouth one time a week. - pantoprazole DR (PROTONIX) 40 mg tablet Take 1 tablet by mouth once daily. - cyclobenzaprine (FLEXERIL) 10 mg tablet Take 1 tablet by mouth three times daily as needed for muscle spasm. - naproxen (NAPROSYN) 500 mg tablet Take 1 tab (more content not included)... Normal [facility] COVID & INFLUENZA A/B & RSV NAAT, ROUTINEon 08-19-2023 FLUAV RNA SHANDRA+probe Ql (Unsp spec) Not detected Not Detected [facility] FLUBV RNA SHANDRA+probe Ql (Unsp spec) Not detected Not Detected [facility] RSV A RNA SHANDRA+probe Ql (Unsp spec) Not detected Not Detected [facility] SARS-CoV-2 (COVID-19) RNA SHANDRA+probe Ql (Resp) Not detected See comment [facility] Laboratory - Chemistry and C hemistry - challengeOrdered By: Arianna Torres on 06-25-2023 Free T4 [Mass/Vol] 1.27 ng/dL 0.76-1.46 [facility] No Panel InformationOrdered By: Arianna Torres on 06-25-2023 Thyroid Stimulating Hormone (TSH) 0.46 uIU/mL 0.358-3.74 [facility] Serum or plasma thyroperoxid ase antibody assay (units/volume)Ordered By: Arianna Torres on 06-25-2023 TPO Ab Qn [IU]/mL 0-34 [facility] Comment on above: Performed at: [place] [id number] Director: William Montejo PhD, Phone: [phone] Laboratory - Chemistry and C hemistry - challengeon 04-24-2022 Glucose Ql (U) Negative [facility] Work Phone: Laboratory - Urinalysison Protein Ql (U) Negative [facility] Work Phone: Laboratory - Chemistry and C hemistry - challengeon 04-17-2022 Glucose Ql (U) Negative [facility] Work Phone: Laboratory - Urinalysison Protein Ql (U) Negative [facility] Work Phone: Laboratory - Chemistry and C hemistry - challengeon 04-03-2022 Glucose Ql (U) Negative [facility] Work Phone: Laboratory - Urinalysison Protein Ql (U) Negative [facility] Work Phone: Laboratory - Chemistry and C hemistry - challengeon 03-20-2022 Glucose Ql (U) Negative [facility] Work Phone: Laboratory - Urinalysison Protein Ql (U) Negative [facility] Work Phone: Laboratory - Chemistry and C hemistry - challengeon 03-02-2022 Glucose Ql (U) Negative [facility] Work Phone: Laboratory - Urinalysison Protein Ql (U) Negative [facility] Work Phone: Absolute lymphocyte counton 02-20-2022 Lymphocytes Auto (Unsp spec) [#/Vol] 1.89 10*3/uL 0.83-4.51 [facility] Work Phone: Basophil percentageon 2021 Basophils/100 WBC (Bld) 0.1 % 0-1 [facility] Work Phone: Eosinophils/100 WBC (Bld) 1.7 % 0-5 [facility] Work Phone: Neutrophils (Bld) [#/Vol] 5.8 10*3/uL 2.0-7.7 [facility] Work Phone: Neutrophils/100 WBC (Bld) 68.6 % 47-70 [facility] Work Phone: WBC (Bld) [#/Vol] 8.4 10*3/uL 4.4-11.0 [facility] Work Phone: Blood erythrocytes count (nu mber/volume)on 02-20-2022 RBC (Bld) [#/Vol] 4.20 10*6/uL 4.2-5.4 [facility] Work Phone: Blood hemoglobin measurement (mass/volume)on 02-20-2022 Hemoglobin (Bld) [Mass/Vol] 11.8 g/dL 12.0-15.0 [facility] Work Phone: Blood lymphocytes/100 leukoc yteson 02-20-2022 Lymphocytes/100 WBC (Bld) 22.4 % 19-41 [facility] Work Phone: Blood monocytes/100 leukocyt eson 02-20-2022 Monocytes/100 WBC (Bld) 6.8 % 0-10 [facility] Work Phone: Blood platelet mean volumeon 02-20-2022 Platelet mean volume (Bld) [Entitic vol] 9.6 fL 6.2-12.0 [facility] Work Phone: Determination of erythrocyte mean corpuscular volume (MCV)on 02-20-2022 MCV (RBC) [Entitic vol] 85.0 fL 81-99 [facility] Work Phone: Gestational diabetes screen 1-hour screen with 50g oral glucose loadon 02-20-2022 Glucose 1 Hr post 50 g glucose PO [Mass/Vol] 122 mg/dL 70-140 [facility] Work Phone: Hematocrit Auto (Bld) [Volum e fraction]on 02-20-2022 Hematocrit (Bld) [Volume fraction] 35.7 % 37-47 [facility] Work Phone: Laboratory - Hematology and Cell countson 02-20-2022 Erythrocyte distribution width (RBC) [Entitic vol] 42.5 fL 35.1-43.9 [facility] Work Phone: Erythrocyte distribution width (RBC) [Ratio] 13.7 % 11.6-14.6 [facility] Work Phone: Immature granulocytes/100 WBC (Bld) 0.400 % 0.0-0.9 [facility] Work Phone: Comment on above: IG% - Immature Granu locytes (promyelocytes, myelocytes and metamyelocytes) > 1% indicates that a LEFT SHIFT is Present. MCH (RBC) [Entitic mass] 28.1 pg 27.0-32.0 [facility] Work Phone: Nucleated RBC/100 WBC (Bld) [Ratio] 0 % 0-5 [facility] Work Phone: MCHC Auto (RBC) [Mass/Vol]on 02-20-2022 MCHC (RBC) [Mass/Vol] 33.1 g/dL 32-36 [facility] Work Phone: Platelets bldon 02-20-2022 Platelets (Bld) [#/Vol] 298 10*3/uL 150-450 [facility] Work Phone: Laboratory - Chemistry and C hemistry - challengeon 02-17-2022 Glucose Ql (U) Negative [facility] Work Phone: Laboratory - Drug toxicology on 02-17-2022 Amphetamines Ql (U) Negative <1000 ng/mL [facility] Work Phone: Benzodiazepines Ql (U) Negative < 200 ng/mL [facility] Work Phone: Cannabinoids Screen Ql (U) Positive < 50 ng/mL [facility] Work Phone: Cocaine Ql (U) Negative < 300 ng/mL [facility] Work Phone: Opiates Ql (U) Negative < 300 ng/mL [facility] Work Phone: Laboratory - Urinalysison Protein Ql (U) Negative [facility] Work Phone: No Panel Informationon 02-17 MDMA (Ecstasy) Screen Negative < 500 ng/mL [facility] Work Phone: Urine Barbiturates Screen Negative < 200 ng/mL [facility] Work Phone: Urine Drug Screen Comment [facility] Work Phone: Comment on above: CONFIRMATORY TESTING FOR ALL POSITIVE URINE DRUG SCREENRESULTS WILL ONLY BE SENT OUT UPON PHYSICIAN ORDER. VISTA Urine Drug Screen methods provide only preliminaryanalytical test results. A more specific alternate chemicalmethod must be used in order to obtain a confirmedanalytical result. Gas chromatography/mass spectrometery(GC/MS) is the preferred confirmatory method. Clinicalconsideration and professional judgement should be appliedto any drug of abuse test result, particularly whenpreliminary positive results are used. URINE TCA TESTING MUST BE ORDERED SEPARATELY. USE TESTMNEMONIC: [facility] Urine Methadone Screen Negative < 300 ng/mL [facility] Work Phone: Urine phencyclidine (PCP) de tectionon 02-17-2022 Phencyclidine Ql (U) Negative < 25 ng/mL [facility] Work Phone: Absolute lymphocyte counton 02-01-2022 Lymphocytes Auto (Unsp spec) [#/Vol] 0.85 10*3/uL 0.83-4.51 [facility] Work Phone: Basophil percentageon 2021 Basophil percentage 0 SEEN /hpf 0-5 [facility] Work Phone: Basophils/100 WBC (Bld) 0.1 % 0-1 [facility] Work Phone: Chloride [Moles/Vol] 107 mmol/L 98-107 [facility] Work Phone: Eosinophils/100 WBC (Bld) 0.5 % 0-5 [facility] Work Phone: Glucose [Mass/Vol] 93 mg/dL 74-106 [facility] Work Phone: Neutrophils (Bld) [#/Vol] 10.8 10*3/uL 2.0-7.7 [facility] Work Phone: Neutrophils/100 WBC (Bld) 88.0 % 47-70 [facility] Work Phone: Potassium [Moles/Vol] 3.8 mmol/L 3.5-5.1 [facility] Work Phone: Sodium [Moles/Vol] 138 mmol/L 136-145 [facility] [facility] Work Phone: WBC (Bld) [#/Vol] 12.3 10*3/uL 4.4-11.0 [facility] Work [facility]: Bilirubin Test strip Ql (U)o n 02-01-2022 Bilirubin Ql (U) Negative Negative [facility] Work Phone: Blood erythrocytes count (nu mber/volume)on 02-01-2022 RBC (Bld) [#/Vol] 4.39 10*6/uL 4.2-5.4 [facility] Work Phone: Blood hemoglobin measurement (mass/volume)on 02-01-2022 Hemoglobin (Bld) [Mass/Vol] 12.5 g/dL 12.0-15.0 [facility] Work Phone: Blood lymphocytes/100 leukoc yteson 02-01-2022 Lymphocytes/100 WBC (Bld) 6.9 % 19-41 [facility] Work Phone: Blood monocytes/100 leukocyt eson 02-01-2022 Monocytes/100 WBC (Bld) 4.1 % 0-10 [facility] Work Phone: Blood platelet mean volumeon 02-01-2022 Platelet mean volume (Bld) [Entitic vol] 9.0 fL 6.2-12.0 [facility] Work Phone: Determination of erythrocyte mean corpuscular volume (MCV)on 02-01-2022 MCV (RBC) [Entitic vol] 85.4 fL 81-99 [facility] Work Phone: Hematocrit Auto (Bld) [Volum e fraction]on 02-01-2022 Hematocrit (Bld) [Volume fraction] 37.5 % 37-47 [facility] Work Phone: Ketones Test strip Ql (U)on 02-01-2022 Ketones Ql (U) 150 mg/dl Negative [facility] Work Phone: Comment on above: CRITICAL VALUE *HCRI TICAL VALUE VERIFIED. CALLED TO [id number]/24/22 1303 Eleni Castillo.RESULTS READ BACK BY SAME . Laboratory - Chemistry and C hemistry - challengeon 02-01-2022 CO2 [Moles/Vol] 26.0 mmol/L 21.0-32.0 [facility] Work Phone: Urea nitrogen/Creatinine [Mass ratio] 12.9 mg/mg 10-20 [facility] Work Phone: Laboratory - Hematology and Cell countson 02-01-2022 Erythrocyte distribution width (RBC) [Entitic vol] 42.6 fL 35.1-43.9 [facility] Work Phone: Erythrocyte distribution width (RBC) [Ratio] 13.7 % 11.6-14.6 [facility] Work Phone: Immature granulocytes/100 WBC (Bld) 0.400 % 0.0-0.9 [facility] Work Phone: Comment on above: IG% - Immature Granu locytes (promyelocytes, myelocytes and metamyelocytes) > 1% indicates that a LEFT SHIFT is Present. MCH (RBC) [Entitic mass] 28.5 pg 27.0-32.0 [facility] Work Phone: Nucleated RBC/100 WBC (Bld) [Ratio] 0 % 0-5 [facility] Work Phone: MCHC Auto (RBC) [Mass/Vol]on 02-01-2022 MCHC (RBC) [Mass/Vol] 33.3 g/dL 32-36 [facility] Work Phone: Mucus LM Ql (Urine sed)on Mucus Ql (Urine sed) 0 SEEN /hpf [facility] Work Phone: Nitrite Test strip Ql (U)on 02-01-2022 Nitrite Ql (U) Negative Negative [facility] Work Phone: No Panel Informationon 02-01 Estimated Creatinine Clearance Calc 142.61 ml/min [facility] Work Phone: Estimated GFR (MDRD) Amer 169 mL/min >60 [facility] Work Phone: Comment on above: GFR Calc Estimated GFR (MDRD) Non-Af Amer 140 mL/min >60 [facility] Work Phone: Comment on above: Non- GFR Calc Platelets bldon 02-01-2022 Platelets (Bld) [#/Vol] 302 10*3/uL 150-450 [facility] Work Phone: Protein Test strip Ql (U)on 02-01-2022 Protein Ql (U) Negative Negative [facility] Work Phone: Serum or plasma calcium reyes urement (mass/volume)on 02-01-2022 Calcium [Mass/Vol] 9.2 mg/dL 8.5-10.1 [facility] Work Phone: Serum or plasma creatinine m easurement (mass/volume)on 02-01-2022 Creatinine [Mass/Vol] 0.54 mg/dL 0.55-1.02 [facility] Work Phone: Comment on above: The validity of the calculated GFR & GFRAA in patients over 70 years has not been determined. Clinical correlation is essential. Serum or plasma urea nitroge n measurement (mass/volume)on 02-01-2022 Urea nitrogen [Mass/Vol] 7 mg/dL 7-18 [facility] Work Phone: Squamous epithelial cells de tection in urine sediment by light microscopyon 02-01-2022 Epithelial cells.squamous LM Ql (Urine sed) 0-5 SEEN /hpf 5-10 [facility] Work Phone: Thin prep Papanicolaou smear with manual screeningon 02-01-2022 Thin prep Papanicolaou smear with manual screening 5 5-15 [facility] Work Phone: Urine blood detectionon - RBC Ql (U) Negative Negative [facility] Work Phone: RBC Ql (U) 0 SEEN /hpf 0-5 [facility] Work Phone: Urine clarityon 02-01-2022 Clarity (U) Clear Clear [facility] Work Phone: Urine color determinationon 02-01-2022 Color (U) Yellow Yellow [facility] Work Phone: Urine glucose detectionon Glucose Ql (U) Normal mg/dl Normal [facility] Work Phone: Urine leukocyte esterase det ection by dipstickon 02-01-2022 Leukocyte esterase Test strip Ql (U) Negative Negative [facility] Work Phone: Urine pHon 02-01-2022 pH (U) 7.0 [pH] 5.0 - 8.0 [facility] Work Phone: Urine sediment bacteria coun t by microscopy (number/high power field)on 02-01-2022 Bacteria LM.HPF (Urine sed) [#/Area] 0 /[HPF] None Seen [facility] Work Phone: Urine specific gravity measu rementon 02-01-2022 Specific gravity (U) [Rel density] 1.010 1.002-1.030 [facility] Work Phone: Urobilinogen Auto test strip Ql (U)on 02-01-2022 Urobilinogen Ql (U) Normal mg/dl Normal [facility] Work Phone: Laboratory - Chemistry and C hemistry - challengeon 01-28-2022 Glucose Ql (U) Negative [facility] Work Phone: Laboratory - Urinalysison Protein Ql (U) Negative [facility] Work Phone: Laboratory - Chemistry and C hemistry - challengeon 12-29-2021 Glucose Ql (U) Negative [facility] Work Phone: Laboratory - Urinalysison Protein Ql (U) Negative [facility] Work Phone: Laboratory - Chemistry and C hemistry - challengeon 12-10-2021 Glucose Ql (U) Negative [facility] Work Phone: Laboratory - Urinalysison Protein Ql (U) Negative [facility] Work Phone: Laboratory - Chemistry and C hemistry - challengeon 12-04-2021 Glucose Ql (U) Negative [facility] Work Phone: Laboratory - Drug toxicology on 12-04-2021 Amphetamines Ql (U) Negative <1000 ng/mL [facility] Work Phone: Benzodiazepines Ql (U) Negative < 200 ng/mL [facility] Work Phone: Cannabinoids Screen Ql (U) Positive < 50 ng/mL [facility] Work Phone: Cocaine Ql (U) Negative < 300 ng/mL [facility] Work Phone: Opiates Ql (U) Negative < 300 ng/mL [facility] Work Phone: Laboratory - Urinalysison Protein Ql (U) Negative [facility] Work Phone: No Panel Informationon 12-04 MDMA (Ecstasy) Screen Negative < 500 ng/mL [facility] Work Phone: Urine Barbiturates Screen Negative < 200 ng/mL [facility] Work Phone: Urine Drug Screen Comment [facility] Work Phone: Comment on above: CONFIRMATORY TESTING FOR ALL POSITIVE URINE DRUG SCREENRESULTS WILL ONLY BE SENT OUT UPON PHYSICIAN ORDER. VISTA Urine Drug Screen methods provide only preliminaryanalytical test results. A more specific alternate chemicalmethod must be used in order to obtain a confirmedanalytical result. Gas chromatography/mass spectrometery(GC/MS) is the preferred confirmatory method. Clinicalconsideration and professional judgement should be appliedto any drug of abuse test result, particularly whenpreliminary positive results are used. URINE TCA TESTING MUST BE ORDERED SEPARATELY. USE TESTMNEMONIC: [facility] Urine Methadone Screen Negative < 300 ng/mL [facility] Work Phone: [phone] Urine phencyclidine (PCP) de tectionon 12-04-2021 Phencyclidine Ql (U) Negative < 25 ng/mL [facility] Work Phone: Absolute lymphocyte counton 10-24-2021 Lymphocytes Auto (Unsp spec) [#/Vol] 1.77 10*3/uL 0.83-4.51 [facility] Work Phone: Basophil percentageon 2021 Basophils/100 WBC (Bld) 0.1 % 0-1 [facility] Work Phone: Eosinophils/100 WBC (Bld) 0.9 % 0-5 [facility] Work Phone: Neutrophils (Bld) [#/Vol] 5.7 10*3/uL 2.0-7.7 [facility] Work Phone: Neutrophils/100 WBC (Bld) 71.7 % 47-70 [facility] Work Phone: WBC (Bld) [#/Vol] 8.0 10*3/uL 4.4-11.0 [facility] Work Phone: [phone] Blood erythrocytes count (nu mber/volume)on 10-24-2021 RBC (Bld) [#/Vol] 4.42 10*6/uL 4.2-5.4 [facility] Work Phone: Blood hemoglobin measurement (mass/volume)on 10-24-2021 Hemoglobin (Bld) [Mass/Vol] 12.3 g/dL 12.0-15.0 [facility] Work Phone: Blood lymphocytes/100 leukoc yteson 10-24-2021 Lymphocytes/100 WBC (Bld) 22.1 % 19-41 [facility] Work Phone: Blood monocytes/100 leukocyt eson 10-24-2021 Monocytes/100 WBC (Bld) 4.8 % 0-10 [facility] Work Phone: Blood platelet mean volumeon 10-24-2021 Platelet mean volume (Bld) [Entitic vol] 9.1 fL 6.2-12.0 [facility] Work Phone: Determination of erythrocyte mean corpuscular volume (MCV)on 10-24-2021 MCV (RBC) [Entitic vol] 85.1 fL 81-99 [facility] Work Phone: Gestational diabetes screen 1-hour screen with 50g oral glucose loadon 10-24-2021 Glucose 1 Hr post 50 g glucose PO [Mass/Vol] 112 mg/dL 70-140 [facility] Work Phone: HIV 1 and HIV-2 antibody ass ay with HIV-1 p24 antigen detectionon 10-24-2021 HIV 1+2 Ab+HIV1 p24 Ag IA Ql Non-Reactive Nonreactive [facility] Work Phone: Hematocrit Auto (Bld) [Volum e fraction]on 10-24-2021 Hematocrit (Bld) [Volume fraction] 37.6 % 37-47 [facility] Work Phone: Laboratory - Hematology and Cell countson 10-24-2021 Erythrocyte distribution width (RBC) [Entitic vol] 41.0 fL 35.1-43.9 [facility] Work Phone: Erythrocyte distribution width (RBC) [Ratio] 13.2 % 11.6-14.6 [facility] Work Phone: Immature granulocytes/100 WBC (Bld) 0.400 % 0.0-0.9 [facility] Work Phone: Comment on above: IG% - Immature Granu locytes (promyelocytes, myelocytes and metamyelocytes) > 1% indicates that a LEFT SHIFT is Present. MCH (RBC) [Entitic mass] 27.8 pg 27.0-32.0 [facility] Work Phone: Nucleated RBC/100 WBC (Bld) [Ratio] 0 % 0-5 [facility] Work Phone: MCHC Auto (RBC) [Mass/Vol]on 10-24-2021 MCHC (RBC) [Mass/Vol] 32.7 g/dL 32-36 [facility] Work Phone: No Panel Informationon 10-24 Hepatitis B Surface Antigen Non-Reactive Nonreactive [facility] Work Phone: Hepatitis C Antibody Non-Reactive Nonreactive [facility] Work Phone: Comment on above: Non Reactive: < 0.8 Equivocal: >/= 0.8 to < 1.0 Reactive: >/= 1.0The [facility] recommends that a reactive/equivocal HCV antibody result be followed up by the HCV Nucleic Acid Amplificationtest ([id number]) Miscellaneous Test Comment MAILED SPECIMEN [facility] Work Phone: Rubella IgG Antibody Reactive Nonreactive [facility] Work Phone: Comment on above: Antibody Results Int erpretation of Immune Status Non Reactive Presumed Non-Immune Equivocal Equivocal Reactive Presumed Immune Platelets bldon 10-24-2021 Platelets (Bld) [#/Vol] 331 10*3/uL 150-450 [facility] Work Phone: Serum Treponema species anti body detectionon 10-24-2021 Treponema sp Ab Ql (S) Non-Reactive [facility] Work Phone: Serum Varicella zoster virus IgG antibody assay by immunoassay (units/volume)on 10-24-2021 VZV IgG IA Qn (S) < 135 index Immune >165 [facility] Work Phone: Comment on above: Negative <135 Equivo osman 135 - 165 Positive >165A positive result generally indicates exposure to thepathogen or administration of specific immunoglobulins,but it is not indication of active infection or stageof disease.Performed at: [address], [place] [id number] Director: William Montejo PhD, Phone: [phone] Cervical or vagninal specime n microscopic examination by cytology stain (reported ason 10-09-2021 Cytology report Cyto stain Doc (Cvx/Vag) Comment . [facility] Work Phone: Comment on above: The Pap smear is a s creening test designed to aid in thedetection of premalignant and malignant conditions of theuterine cervix. It is not a diagnostic procedure andshould not be used as the sole means of detecting cervicalcancer. Both false-positive and false-negative reports dooccur. Chlamydia trachomatis rRNA d etection by probe and target amplification methodon 10-09-2021 C. trachomatis rRNA SHANDRA+probe Ql (Unsp spec) Negative Negative [facility] Work Phone: Culture, urineon 10-09-2021 Bacteria identified Cx Nom (U) Positive [facility] Work Phone: Detection in cervical specim en of any of human papilloma virus (HPV) 16, 18, 31, 33,on 10-09-2021 HPV 16+18+31+33+35+39+45+ 51+52+56+58+59+66+68 DNA Probe+sig amp Ql (Cvx) Negative Negative [facility] Work Phone: Comment on above: This nucleic acid am plification test detects fourteen high- risk HPV types (16,18,31,33,35,39,45,51,52,56,58,59,66,68)without differentiation.Performed at: - [address] [id number] Director: Jessica Hill MD, Phone: [phone] at: = - [facility] [id number] Director: Jessica Hill MD, Phone: [phone] Laboratory - Cytologyon 09-11 Associate Dean Cyto stain Nom (Cvx/Vag) [ID] Comment . [facility] Work Phone: Comment on above: Escobar Ulloa, [employer] hnologist (ASCP) Pathologist Cyto stain Nom (Cvx/Vag) [ID] Comment . [facility] Work Phone: Comment on above: Paloma Pedraza MD, P athologist Laboratory - Drug toxicology on 10-09-2021 Amphetamines Ql (U) Negative <1000 ng/mL [facility] Work Phone: Benzodiazepines Ql (U) Negative < 200 ng/mL [facility] Work Phone: Cannabinoids Screen Ql (U) Positive < 50 ng/mL [facility] Work Phone: Cocaine Ql (U) Negative < 300 ng/mL [facility] Work Phone: Opiates Ql (U) Negative < 300 ng/mL [facility] Work Phone: Laboratory - Microbiology an d Antimicrobial susceptibilityon 10-09-2021 N. gonorrhoeae DNA SHANDRA+probe Ql (Unsp spec) Negative Negative [facility] Work Phone: Comment on above: Performed at: =G - L [address] [id number] Director: Jessica Hill MD, Phone: [phone] Laboratory - Miscellaneous t estson 10-09-2021 Service comment (Unsp spec) [Interp] Comment . [facility] Work Phone: Comment on above: This liquid based Th inPrep(R) pap test was screened withthe use of an image guided system. Service comment (Unsp spec) [Interp] . . [facility] Work Phone: No Panel Informationon 10-09 MDMA (Ecstasy) Screen Negative < 500 ng/mL [facility] Work Phone: Pathology report final diagnosis Narrative Comment . [facility] Work Phone: Comment on above: EPITHELIAL CELL ABNO RMALITY.ATYPICAL SQUAMOUS CELLS OF UNDETERMINED SIGNIFICANCE (ASC-US). R87.610 Urine Barbiturates Screen Negative < 200 ng/mL [facility] Work Phone: Urine Drug Screen Comment [facility] Work Phone: Comment on above: CONFIRMATORY TESTING FOR ALL POSITIVE URINE DRUG SCREENRESULTS WILL ONLY BE SENT OUT UPON PHYSICIAN ORDER. VISTA Urine Drug Screen methods provide only preliminaryanalytical test results. A more specific alternate chemicalmethod must be used in order to obtain a confirmedanalytical result. Gas chromatography/mass spectrometery(GC/MS) is the preferred confirmatory method. Clinicalconsideration and professional judgement should be appliedto any drug of abuse test result, particularly whenpreliminary positive results are used. URINE TCA TESTING MUST BE ORDERED SEPARATELY. USE TESTMNEMONIC: [facility] Urine Methadone Screen Negative < 300 ng/mL [facility] Work Phone: Urine phencyclidine (PCP) de tectionon 10-09-2021 Phencyclidine Ql (U) Negative < 25 ng/mL [facility] Work Phone: Serum or plasma choriogonado tropin detectionon 09-17-2021 HCG ( test) Ql 1682 mIU/mL <4 [facility] Work Phone: Comment on above: hCG levels with Gest ational AgeGestational Age hCG mIU/mL (IU/L)0.2 - 1 week 5 - 501-2 weeks 50 - 5002-3 weeks 100 - 05865-7 weeks 500 - 290293-4 weeks 1000 - 293493-5 weeks 18585 - 100,0006-8 weeks 53407 - 200,0002-3 months 59682 - 100,000 Serum or plasma choriogonado tropin detectionon 09-15-2021 HCG ( test) Ql 829 mIU/mL <4 [facility] Work Phone: Comment on above: hCG levels with Gest ational AgeGestational Age hCG mIU/mL (IU/L)0.2 - 1 week 5 - 501-2 weeks 50 - 5002-3 weeks 100 - 56675-5 weeks 500 - 765050-3 weeks 1000 - 563474-9 weeks 13203 - 100,0006-8 weeks 94883 - 200,0002-3 months 30500 - 100,000 Bacteria identified Cx Nom ( Wound) Wound Culture Streptococcus group F [facility] Work Phone: Wound Culture Negative [facility] Work Phone: Culture, urine Bacteria identified Cx Nom (U) Positive [facility] Work Phone: Gram stain for investigation of transfusion reaction Microscopic observation Gram stain Nom (Unsp spec) [facility] Work Phone: No Panel Information Group B Streptococcus Culture Group B Beta Streptococcus is not isolated. [facility] Work Phone: Vital Signs Date Time Vital Sign Value Performing Clinician Facility 03-21-2025 14:51-0400 Body mass index (BMI) [Ratio] 34.53 kg/m2 Toby Parada DO Work Phone: [facility] 03-21-2025 14:51-0400 Body temperature 97.5 [degF] Toby Parada DO Work Phone: [facility] 03-21-2025 14:51-0400 Body weight 99.79 kg Toby Parada DO Work Phone: [facility] 03-21-2025 14:51-0400 Diastolic blood pressure 74 mm[Hg] Toby Parada DO Work Phone: [facility] 03-21-2025 14:51-0400 Heart rate 64 /min Toby Parada DO Work Phone: [facility] 03-21-2025 14:51-0400 Respiratory rate 16 /min Toby Parada DO Work Phone: [facility] 03-21-2025 14:51-0400 Systolic blood pressure 114 mm[Hg] Toby Parada DO Work Phone: [facility] 12-22-2024 14:38-0400 Body height 167.[address] Toby Parada DO Work Phone: [facility] 12-22-2024 14:38-0400 Body mass index (BMI) [Ratio] 35.5 kg/m2 Dr. Toby Parada DO Work Phone: [facility] 12-22-2024 14:38-0400 Body weight 99.[address] Toby Parada DO Work Phone: [facility] 12-22-2024 14:38-0400 Diastolic blood pressure 77 mm[Hg] Dr. Toby Parada DO Work Phone: [facility] 12-22-2024 14:38-0400 Systolic blood pressure 115 mm[Hg] Dr. Toby Parada DO Work Phone: [facility] 11-23-2024 15:48-0400 Body mass index (BMI) [Ratio] 32.87 kg/m2 Krislyn Aberegg PA Work Phone: [facility] 11-23-2024 15:48-0400 Body temperature 98.49 [degF] Krislyn Aberegg PA Work Phone: [facility] 11-23-2024 15:48-0400 Body weight 95 kg Krislyn Aberegg PA Work Phone: [facility] 11-23-2024 15:48-0400 Diastolic blood pressure 96 mm[Hg] Krislyn Aberegg PA Work Phone: [facility] 11-23-2024 15:48-0400 Heart rate 102 /min Krislyn Aberegg PA Work Phone: [facility] 11-23-2024 15:48-0400 Respiratory rate 20 /min Krislyn Aberegg PA Work Phone: [facility] 11-23-2024 15:48-0400 SaO2% (BldA) [Mass fraction] 99 % Krislyn Aberegg PA Work Phone: [facility] 11-23-2024 15:48-0400 Systolic blood pressure 145 mm[Hg] Krislyn Aberegg PA Work Phone: [facility] 09-02-2024 11:57-0500 Body mass index (BMI) [Ratio] 33.01 kg/m2 Zina Villarreal APRN.CNP Work Phone: [facility] 09-02-2024 11:57-0500 Body temperature 97.5 [degF] Zina Villarreal APRN.E TAILER Work Phone: [facility] 09-02-2024 11:57-0500 Body weight 95.4 kg Zina Villarreal APRN.E TAILER Work Phone: [facility] 09-02-2024 11:57-0500 Diastolic blood pressure 85 mm[Hg] Zina Villarreal APRN.E TAILER Work Phone: [facility] 09-02-2024 11:57-0500 Heart rate 86 /min Zina Villarreal APRN.E TAILER Work Phone: [facility] 09-02-2024 11:57-0500 Respiratory rate 18 /min Zina Villarreal APRN.E TAILER Work Phone: [facility] 09-02-2024 11:57-0500 SaO2% (BldA) [Mass fraction] 100 % Zina Villarreal APRN.E TAILER Work Phone: [facility] 09-02-2024 11:57-0500 Systolic blood pressure 137 mm[Hg] Zina Villarreal APRN.E TAILER Work Phone: [facility] 03-27-2024 10:07-0400 Body mass index (BMI) [Ratio] 34.6 kg/m2 Toby Parada DO Work Phone: [facility] 03-27-2024 10:07-0400 Body temperature 97 [degF] Toby Parada DO Work Phone: [facility] 03-27-2024 10:07-0400 Body weight 100 kg Toby Parada DO Work Phone: [facility] 03-27-2024 10:07-0400 Diastolic blood pressure 80 mm[Hg] Toby Parada DO Work Phone: [facility] 03-27-2024 10:07-0400 Heart rate 80 /min Toby Parada DO Work Phone: [facility] 03-27-2024 10:07-0400 Respiratory rate 16 /min Toby Parada DO Work Phone: [facility] 03-27-2024 10:07-0400 Systolic blood pressure 116 mm[Hg] Toby Parada DO Work Phone: [facility] 03-16-2024 15:05-0400 Body mass index (BMI) [Ratio] 34.19 kg/m2 Lisa Portillo STRATEGIC CLIENT EXECUTIVE.E TAILER Work Phone: [facility] 03-16-2024 15:05-0400 Body temperature 98.4 [degF] Lisa Portillo STRATEGIC CLIENT EXECUTIVE.E TAILER Work Phone: [facility] 03-16-2024 15:05-0400 Body weight 98.8 kg Lisa Portillo STRATEGIC CLIENT EXECUTIVE.E TAILER Work Phone: [facility] 03-16-2024 15:05-0400 Diastolic blood pressure 82 mm[Hg] Lisa Portillo STRATEGIC CLIENT EXECUTIVE.E TAILER Work Phone: [facility] 03-16-2024 15:05-0400 Heart rate 112 /min Lisa Portillo STRATEGIC CLIENT EXECUTIVE.E TAILER Work Phone: [facility] 03-16-2024 15:05-0400 Respiratory rate 18 /min Lisa Portillo STRATEGIC CLIENT EXECUTIVE.E TAILER Work Phone: [facility] 03-16-2024 15:05-0400 SaO2% (BldA) [Mass fraction] 100 % Lisa Portillo STRATEGIC CLIENT EXECUTIVE.E TAILER Work Phone: [facility] 03-16-2024 15:05-0400 Systolic blood pressure 133 mm[Hg] Lisa Portillo STRATEGIC CLIENT EXECUTIVE.E TAILER Work Phone: [facility] 01-03-2024 08:24-0400 Body mass index (BMI) [Ratio] 34.37 kg/m2 Toby Parada DO Work Phone: [facility] 01-03-2024 08:24-0400 Body temperature 96.8 [degF] Toby Parada DO Work Phone: [facility] 01-03-2024 08:24-0400 Body weight 99.34 kg Toby Parada DO Work Phone: [facility] 01-03-2024 08:24-0400 Diastolic blood pressure 80 mm[Hg] Toby Parada DO Work Phone: [facility] 01-03-2024 08:24-0400 Heart rate 64 /min Toby Parada DO Work Phone: [facility] 01-03-2024 08:24-0400 Respiratory rate 16 /min Toby Parada DO Work Phone: [facility] 01-03-2024 08:24-0400 Systolic blood pressure 130 mm[Hg] Toby Parada DO Work Phone: [facility] 10-18-2023 17:52-0400 Body temperature 97.2 [degF] Dr. Toby Parada Work Phone: [facility] 10-18-2023 17:52-0400 Diastolic blood pressure 70 mm[Hg] Dr. Toby Parada Work Phone: [facility] 10-18-2023 17:52-0400 Heart rate 100 /min Dr. Toby Parada Work Phone: [facility] 10-18-2023 17:52-0400 Respiratory rate 16 /min Dr. Toby Parada Work Phone: [facility] 10-18-2023 17:52-0400 SaO2% (BldA) [Mass fraction] 96 % Dr. Toby Parada Work Phone: [facility] 10-18-2023 17:52-0400 Systolic blood pressure 135 mm[Hg] Dr. Toby Parada Work Phone: [facility] 10-18-2023 16:54-0400 Body height 167.[address] Toby Parada Work Phone: [facility] 10-18-2023 16:54-0400 Body mass index (BMI) [Ratio] 35.9 kg/m2 Dr. Toby Parada Work Phone: 0(143)998-891097 [place] [address] 10-18-2023 16:54-0400 Body weight 100.[address] Toby Parada Work Phone: 0(620)318-911400 [place] [address] 10-15-2023 00:54-0400 Body temperature 97.9 [degF] Dr. Toby Parada Work Phone: 6(969)521-185000 [place] [address] 10-15-2023 00:54-0400 Diastolic blood pressure 60 mm[Hg] Dr. Toby Parada Work Phone: 1(312)915-051700 [place] [address] 10-15-2023 00:54-0400 Heart rate 100 /min Dr. Toby Parada Work Phone: 2(182)018-734200 [place] [address] 10-15-2023 00:54-0400 Respiratory rate 18 /min Dr. Toby Parada Work Phone: 4(367)704-470300 [place] [address] 10-15-2023 00:54-0400 SaO2% (BldA) [Mass fraction] 99 % Dr. Toby Parada Work Phone: 0(712)537-663600 [place] [address] 10-15-2023 00:54-0400 Systolic blood pressure 148 mm[Hg] Dr. Toby Parada Work Phone: 0(702)924-449800 [place] [address] 10-14-2023 23:39-0400 Body height 167.[address] Toby Parada Work Phone: 4(308)518-511500 [place] [address] 10-14-2023 23:39-0400 Body mass index (BMI) [Ratio] 37 kg/m2 Dr. Toby Parada Work Phone: 9(111)768-44[address] [place] [address] 10-14-2023 23:39-0400 Body weight 104.[address] Toby Parada Work Phone: 5(325)797-734200 [place] [address] 09-17-2023 12:23-0500 Body temperature 97.11 [degF] Toby Parada DO Work Phone: 1(777)766-789669 [place] [address] 09-17-2023 12:23-0500 Body weight 102.97 kg Toby Parada DO Work Phone: 1(787)229-012369 [place] [address] 09-17-2023 12:23-0500 Diastolic blood pressure 70 mm[Hg] Toby aPrada DO Work Phone: [facility] 09-17-2023 12:23-0500 Heart rate 80 /min Toby Parada DO Work Phone: [facility] 09-17-2023 12:23-0500 Respiratory rate 12 /min Toby Parada DO Work Phone: [facility] 09-17-2023 12:23-0500 Systolic blood pressure 110 mm[Hg] Toby Prattrison DO Work Phone: [facility] 08-19-2023 15:04-0500 Body temperature 98.1 [degF] Lisa Portillo STRATEGIC CLIENT EXECUTIVE.E TAILER Work Phone: [facility] 08-19-2023 15:04-0500 Body weight 100.7 kg Lisa Portillo STRATEGIC CLIENT EXECUTIVE.E TAILER Work Phone: [facility] 08-19-2023 15:04-0500 Diastolic blood pressure 74 mm[Hg] Lisa Portillo STRATEGIC CLIENT EXECUTIVE.E TAILER Work Phone: [facility] 08-19-2023 15:04-0500 Heart rate 98 /min Lisa Portillo STRATEGIC CLIENT EXECUTIVE.E TAILER Work Phone: [facility] 08-19-2023 15:04-0500 Respiratory rate 16 /min Lisa Portillo STRATEGIC CLIENT EXECUTIVE.E TAILER Work Phone: [facility] 08-19-2023 15:04-0500 SaO2% (BldA) [Mass fraction] 97 % Lisa Portillo STRATEGIC CLIENT EXECUTIVE.E TAILER Work Phone: [facility] 08-19-2023 15:04-0500 Systolic blood pressure 128 mm[Hg] Lisa Portillo STRATEGIC CLIENT EXECUTIVE.E TAILER Work Phone: [facility] 06-25-2023 11:10-0500 Body height 167.[address] Toby Parada Work Phone: [facility] 06-25-2023 11:03-0500 Body mass index (BMI) [Ratio] 35.6 kg/m2 Dr. Toby Parada Work Phone: [facility] 06-25-2023 11:03-0500 Body weight 100.[address] Toby Parada Work Phone: [facility] 06-25-2023 11:03-0500 Diastolic blood pressure 82 mm[Hg] Dr. Toby Parada Work Phone: [facility] 06-25-2023 11:03-0500 Systolic blood pressure 118 mm[Hg] Dr. Toby Parada Work Phone: [facility] 06-16-2023 08:06-0500 Body height 170 cm Toby Parada DO Work Phone: [facility] 06-16-2023 08:06-0500 Body temperature 97.81 [degF] Toby Parada DO Work Phone: [facility] 06-16-2023 08:06-0500 Body weight 104.33 kg Toby Parada DO Work Phone: [facility] 06-16-2023 08:06-0500 Diastolic blood pressure 82 mm[Hg] Toby Parada DO Work Phone: [facility] 06-16-2023 08:06-0500 Heart rate 80 /min Toby Parada DO Work Phone: [facility] 06-16-2023 08:06-0500 Respiratory rate 16 /min Toby Parada DO Work Phone: [facility] 06-16-2023 08:06-0500 Systolic blood pressure 120 mm[Hg] Toby Parada DO Work Phone: [facility] 12-10-2022 08:45-0400 Body temperature 97.81 [degF] Precious Moses PA Work Phone: [facility] 12-10-2022 08:45-0400 Body weight 105.05 kg Precious Moses PA Work Phone: [facility] 12-10-2022 08:45-0400 Diastolic blood pressure 100 mm[Hg] Krislyn Aberegg PA Work Phone: [facility] 12-10-2022 08:45-0400 Heart rate 88 /min Krislyn Aberegg PA Work Phone: [facility] 12-10-2022 08:45-0400 Respiratory rate 22 /min Krislyn Aberegg PA Work Phone: [facility] 12-10-2022 08:45-0400 SaO2% (BldA) [Mass fraction] 98 % Krislyn Aberegg PA Work Phone: [facility] 12-10-2022 08:45-0400 Systolic blood pressure 130 mm[Hg] Krislyn Aberegg PA Work Phone: [facility] 04-24-2022 09:35-0400 Body height 167.[address] Toby Parada Work Phone: [facility] Work Phone: 04-24-2022 09:35-0400 Body mass index (BMI) [Ratio] 34.5 kg/m2 Dr. Toby Parada Work Phone: [facility] Work Phone: 04-24-2022 09:35-0400 Body weight 97.[address] Toby Parada Work Phone: [facility] Work Phone: 04-24-2022 09:35-0400 Diastolic blood pressure 80 mm[Hg] Dr. Toby Parada Work Phone: [facility] Work Phone: 04-24-2022 09:35-0400 Systolic blood pressure 124 mm[Hg] Dr. Toby Parada Work Phone: [facility] Work Phone: 04-17-2022 09:38-0400 Body mass index (BMI) [Ratio] 34.4 kg/m2 Dr. Toby Parada Work Phone: [facility] Work Phone: 04-17-2022 09:38-0400 Body weight 96.[address] Toby Parada Work Phone: [facility] Work Phone: 04-17-2022 09:38-0400 Diastolic blood pressure 84 mm[Hg] Dr. Toby Parada Work Phone: [facility] Work Phone: 04-17-2022 09:38-0400 Systolic blood pressure 126 mm[Hg] Dr. Toby Parada Work Phone: [facility] Work Phone: 04-03-2022 08:50-0400 Body mass index (BMI) [Ratio] 34.8 kg/m2 Dr. Toby Parada Work Phone: [facility] Work Phone: 04-03-2022 08:50-0400 Body weight 97.[address] Toby Parada Work Phone: [facility] Work Phone: 04-03-2022 08:50-0400 Diastolic blood pressure 80 mm[Hg] Dr. Toby Parada Work Phone: [facility] Work Phone: 04-03-2022 08:50-0400 Systolic blood pressure 113 mm[Hg] Dr. Toby Parada Work Phone: [facility] Work Phone: 03-20-2022 09:40-0400 Body mass index (BMI) [Ratio] 34.9 kg/m2 Dr. Toby Parada Work Phone: [facility] Work Phone: 03-20-2022 09:40-0400 Body weight 98.[address] Toby Parada Work Phone: [facility] Work Phone: 03-20-2022 09:40-0400 Diastolic blood pressure 72 mm[Hg] Dr. Toby Parada Work Phone: [facility] Work Phone: 03-20-2022 09:40-0400 Systolic blood pressure 118 mm[Hg] Dr. Toby Parada Work Phone: [facility] Work Phone: 03-02-2022 08:56-0400 Body mass index (BMI) [Ratio] 34.5 kg/m2 Dr. Toby Parada Work Phone: [facility] Work Phone: 03-02-2022 08:56-0400 Body weight 97.[address] Toby Parada Work Phone: [facility] Work Phone: 03-02-2022 08:56-0400 Diastolic blood pressure 84 mm[Hg] Dr. Toby Parada Work Phone: [facility] Work Phone: 03-02-2022 08:56-0400 Systolic blood pressure 122 mm[Hg] Dr. Toby Parada Work Phone: [facility] Work Phone: 02-17-2022 09:20-0400 Body height 167.[address] Toby Parada Work Phone: [facility] Work Phone: 02-17-2022 09:20-0400 Body mass index (BMI) [Ratio] 34.7 kg/m2 Dr. Toby Parada Work Phone: [facility] Work Phone: 02-17-2022 09:20-0400 Body weight 97.[address] Toby Parada Work Phone: [facility] Work Phone: 02-17-2022 09:20-0400 Diastolic blood pressure 70 mm[Hg] Dr. Toby Parada Work Phone: [facility] Work Phone: 02-17-2022 09:20-0400 Systolic blood pressure 122 mm[Hg] Dr. Toby Parada Work Phone: [facility] Work Phone: 02-01-2022 10:35-0400 Body height 167.[address] Toby Parada Work Phone: [facility] Work Phone: 02-01-2022 10:35-0400 Body mass index (BMI) [Ratio] 34 kg/m2 Dr. Toby Parada Work Phone: [facility] Work Phone: 02-01-2022 10:35-0400 Body temperature 97.2 [degF] Dr. Toby Parada Work Phone: [facility] Work Phone: 02-01-2022 10:35-0400 Body weight 95.[address] Toby Parada Work Phone: [facility] Work Phone: 02-01-2022 10:35-0400 Diastolic blood pressure 78 mm[Hg] Dr. Toby Parada Work Phone: [facility] Work Phone: 02-01-2022 10:35-0400 Heart rate 109 /min Dr. Toby Parada Work Phone: [facility] Work Phone: 02-01-2022 10:35-0400 Respiratory rate 16 /min Dr. Toby Parada Work Phone: [facility] Work Phone: 02-01-2022 10:35-0400 SaO2% (BldA) [Mass fraction] 98 % Dr. Toby Parada Work Phone: [facility] Work Phone: 02-01-2022 10:35-0400 Systolic blood pressure 138 mm[Hg] Dr. Toby Parada Work Phone: [facility] Work Phone: 01-28-2022 10:23-0400 Body mass index (BMI) [Ratio] 34 kg/m2 Dr. Toby Parada Work Phone: [facility] Work Phone: 01-28-2022 10:23-0400 Body weight 95.[address] Toby Parada Work Phone: [facility] Work Phone: 01-28-2022 10:23-0400 Diastolic blood pressure 68 mm[Hg] Dr. Toby Parada Work Phone: [facility] Work Phone: 01-28-2022 10:23-0400 Systolic blood pressure 120 mm[Hg] Dr. Toby Parada Work Phone: [facility] Work Phone: 12-29-2021 14:37-0400 Body height 167.[address] Toby Parada Work Phone: [facility] Work Phone: 12-29-2021 14:36-0400 Body mass index (BMI) [Ratio] 33.7 kg/m2 Dr. Toby Parada Work Phone: [facility] Work Phone: 12-29-2021 14:36-0400 Body weight 94.[address] Toby Parada Work Phone: [facility] Work Phone: 12-29-2021 14:36-0400 Diastolic blood pressure 72 mm[Hg] Dr. Toby Parada Work Phone: [facility] Work Phone: 12-29-2021 14:36-0400 Systolic blood pressure 102 mm[Hg] Dr. Toby Parada Work Phone: [facility] Work Phone: 12-10-2021 08:44-0400 Body mass index (BMI) [Ratio] 33.5 kg/m2 Dr. Toby Parada Work Phone: [facility] Work Phone: 12-10-2021 08:44-0400 Body weight 94.[address] Toby Parada Work Phone: [facility] Work Phone: 12-10-2021 08:44-0400 Diastolic blood pressure 62 mm[Hg] Dr. Toby Parada Work Phone: [facility] Work Phone: 12-10-2021 08:44-0400 Systolic blood pressure 110 mm[Hg] Dr. Toby Parada Work Phone: [facility] Work Phone: 12-10-2021 08:44-0400 Body height 167.[address] Toby Parada Work Phone: [facility] Work Phone: 12-10-2021 08:44-0400 Body mass index (BMI) [Ratio] 33.5 kg/m2 Dr. Toby Parada Work Phone: [facility] Work Phone: 12-10-2021 08:44-0400 Body weight 94.[address] Toby Parada Work Phone: [facility] Work Phone: 12-10-2021 08:44-0400 Diastolic blood pressure 62 mm[Hg] Dr. Toby Parada Work Phone: [facility] Work Phone: 12-10-2021 08:44-0400 Systolic blood pressure 110 mm[Hg] Dr. Toby Parada Work Phone: [facility] Work Phone: 12-04-2021 08:28-0400 Body mass index (BMI) [Ratio] 33.7 kg/m2 Dr. Toby Parada Work Phone: [facility] Work Phone: 12-04-2021 08:28-0400 Body weight 94.[address] Toby Parada Work Phone: [facility] Work Phone: 12-04-2021 08:28-0400 Diastolic blood pressure 70 mm[Hg] Dr. Toby Parada Work Phone: [facility] Work Phone: 12-04-2021 08:28-0400 Systolic blood pressure 118 mm[Hg] Dr. Toby Parada Work Phone: [facility] Work Phone: 12-04-2021 08:28-0400 Body mass index (BMI) [Ratio] 33.7 kg/m2 Dr. Toby Parada Work Phone: [facility] Work Phone: 12-04-2021 08:28-0400 Body weight 94.[address] Toby Parada Work Phone: [facility] Work Phone: 12-04-2021 08:28-0400 Diastolic blood pressure 70 mm[Hg] Dr. Toby Parada Work Phone: [facility] Work Phone: 12-04-2021 08:28-0400 Systolic blood pressure 118 mm[Hg] Dr. Toby Parada Work Phone: [facility] Work Phone: 11-07-2021 14:26-0400 Body mass index (BMI) [Ratio] 33.2 kg/m2 Dr. Toby Parada Work Phone: [facility] Work Phone: 11-07-2021 14:26-0400 Body weight 93.[address] Toby Parada Work Phone: [facility] Work Phone: 11-07-2021 14:26-0400 Diastolic blood pressure 82 mm[Hg] Dr. Toby Parada Work Phone: [facility] Work Phone: 11-07-2021 14:26-0400 Systolic blood pressure 132 mm[Hg] Dr. Toby Parada Work Phone: [facility] Work Phone: 11-07-2021 14:26-0400 Body mass index (BMI) [Ratio] 33.2 kg/m2 Dr. Toby Parada Work Phone: [facility] Work Phone: 11-07-2021 14:26-0400 Body weight 93.[address] Toby Parada Work Phone: [facility] Work Phone: 11-07-2021 14:26-0400 Diastolic blood pressure 82 mm[Hg] Dr. Toby Parada Work Phone: [facility] Work Phone: 11-07-2021 14:26-0400 Systolic blood pressure 132 mm[Hg] Dr. Toby Parada Work Phone: [facility] Work Phone: 10-09-2021 10:47-0400 Body mass index (BMI) [Ratio] 33.6 kg/m2 Dr. Toby Parada Work Phone: [facility] Work Phone: 10-09-2021 10:47-0400 Body weight 94.[address] Toby Parada Work Phone: [facility] Work Phone: 10-09-2021 10:47-0400 Diastolic blood pressure 70 mm[Hg] Dr. Toby Parada Work Phone: [facility] Work Phone: 10-09-2021 10:47-0400 Systolic blood pressure 116 mm[Hg] Dr. Toby Parada Work Phone: [facility] Work Phone: 10-09-2021 10:47-0400 Body height 167.[address] Toby Parada Work Phone: [facility] Work Phone: 10-09-2021 10:47-0400 Body mass index (BMI) [Ratio] 33.6 kg/m2 Dr. Toby Parada Work Phone: [facility] Work Phone: 10-09-2021 10:47-0400 Body weight 94.[address] Toby Parada Work Phone: [facility] Work Phone: 10-09-2021 10:47-0400 Diastolic blood pressure 70 mm[Hg] Dr. Toby Parada Work Phone: [facility] Work Phone: 10-09-2021 10:47-0400 Systolic blood pressure 116 mm[Hg] Dr. Toby Parada Work Phone: [facility] Work Phone: Encounters Encounter Date Encounter Type Care Provider Facility Start: 05-15-2025 ambulatory Toby Parada Facilit y:[facility] Start: 03-26-2025 End: 03-26-2025 ambulatory TOBY PARADA Facility:[facility] Start: 03-21-2025 End: 03-21-2025 Patient encounter procedure Toby Parada DO Work Phone: [facility] [place] Comment on above: Well adult exam (Stephanie gamble Dx); Vitamin D deficiency; Myalgia; Gastroesophageal reflux disease with esophagitis, unspecified whether hemorrhage; Obesity, Class II, BMI 35-39.9; Chronic pain of right knee Start: 03-21-2025 End: 03-21-2025 Patient encounter status Toby Parada DO Work Phone: [facility] Start: 03-21-2025 End: 03-21-2025 ambulatory TOBY PARADA Facility:[facility] Start: 12-22-2024 End: 12-22-[address] Toby Parada DO Work Phone: [facility] Work Phone: Start: 12-22-2024 End: 12-22-[address] Patricia Borrero DO -Laboratory Specimen Work Phone: Start: 12-22-2024 Encounter for gynecological examination (general) (routine) without abnormal findings Patricia Borrero [facility] Start: 12-22-2024 End: 12-22-[address] Patricia Borrero DO -[facility] Work Phone: Start: 12-22-2024 End: 12-22-[address] Patricia Borrero DO [facility] Start: 12-22-2024 End: 12-22-[address] Toby Parada DO Work Phone: [facility] Work Phone: Start: 12-22-2024 End: 12-22-2024 ambulatory Toby Parada Facility:[facility] Start: 11-23-2024 End: 11-23-2024 Patient encounter procedure Precious PARDO Work Phone: [facility] Comment on above: Generalized abdomina l pain (Primary Dx); Hematemesis with nausea Start: 11-23-2024 End: 11-23-2024 ambulatory PRECIOUS MOSES Facility:[facility] Start: 10-23-2024 End: 10-23-2024 Refill Toby Parada DO Work Phone: [facility] Comment on above: Refill Request Start: 09-02-2024 End: 09-02-2024 ambulatory TOBY PARADA Facility:[facility] Start: 09-02-2024 End: 09-02-2024 Patient encounter procedure Zina Villarreal STRATEGIC CLIENT EXECUTIVE.E TAILER Work Phone: [facility] [place] [facility] Comment on above: URI, acute (Primary Dx) Start: 03-27-2024 End: 03-27-2024 Patient encounter procedure Toby Parada DO Work Phone: [facility] [place] Comment on above: Dysmetabolic syndrom e (Primary Dx); Well adult exam; Vitamin D deficiency; Obesity, Class II, BMI 35-39.9; Nipple discharge in female Start: 03-27-2024 End: 03-27-2024 Patient encounter status Toby Parada DO Work Phone: [facility] Work Phone: Start: 03-16-2024 End: 03-16-2024 Patient encounter procedure Lisa Portillo STRATEGIC CLIENT EXECUTIVE.E TAILER Work Phone: [facility] [place] [facility] Comment on above: URI, acute (Primary Dx) Start: 01-03-2024 End: 01-03-2024 Patient encounter procedure Toby Parada DO Work Phone: [facility] [place] Comment on above: Obesity, Class II, B MS 35-39.9 (Primary Dx); Acute pain of right knee Start: 10-27-2023 Telephone encounter Toby araujo DO Work Phone: [facility] [place] Comment on above: Results Start: 10-18-2023 End: 10-18-2023 Emergency department patient visit Dr. Toby Parada Work Phone: [facility]-Emergency Department Work Phone: Start: 10-14-2023 End: 10-15-2023 Emergency department patient visit Dr. Toby Parada Work Phone: [facility] Work Phone: Start: 09-17-2023 End: 09-17-2023 Patient encounter procedure Toby Parada DO Work Phone: [facility] [place] Comment on above: Obesity, Class II, B MS 35-39.9 (Primary Dx) Start: 08-19-2023 End: 08-19-2023 Patient encounter procedure Lisa Portillo STRATEGIC CLIENT EXECUTIVEMEGAAN Work Phone: [facility] [place] [facility] Comment on above: URI, acute (Primary Dx) Start: 07-19-2023 End: 07-19-[address] Toby Parada Work Phone: [facility] Work Phone: Start: 07-19-2023 End: 07-19-[address] Toby Parada Work Phone: [facility] Work Phone: Start: 06-30-2023 Telephone encounter Toby araujo DO Work Phone: [facility] Start: 06-25-2023 End: 06-25-[address] Toby Parada Work Phone: [facility] Work Phone: Start: 06-25-2023 End: 06-25-[address] Toby Parada Work Phone: [facility] Work Phone: Start: 06-16-2023 Encounter for cortney l adult medical examination without abnormal findings TOBY PARADA [facility] Start: 06-16-2023 End: 06-16-2023 Patient encounter procedure Toby Parada DO Work Phone: [facility] Comment on above: Well adult exam ([facility] mavis Dx); Gastroesophageal reflux disease with esophagitis, unspecified whether hemorrhage; Need for influenza vaccination; Obesity, Class II, BMI 35-39.9 Start: 06-16-2023 End: 06-16-2023 Patient encounter status Toby Parada DO Work Phone: [facility] Work Phone: Start: 12-11-2022 Telephone encounter Elena mtz PA-C Work Phone: [facility] [place] [facility] Comment on above: Erroneous encounter- disregard Start: 12-10-2022 End: 12-10-2022 Patient encounter procedure Precious PARDO Work Phone: [facility] Comment on above: Exposure to gonorrhe a (Primary Dx); Encounter for assessment of STD exposure Start: 04-24-2022 End: 04-24-[address] Toby Parada Work Phone: [facility] Start: 04-20-2022 End: 04-20-2022 ambulatory GILMER Tello [facility] Start: 04-17-2022 End: 04-17-[address] Toby Parada Work Phone: [facility] Work Phone: Start: 04-17-2022 End: 04-17-[address] Toby Parada Work Phone: [facility]-Laboratory, Specimen Start: 04-17-2022 End: 04-17-[address] Toby Parada Work Phone: [facility] Start: 04-03-2022 End: 04-03-[address] Toby Parada Work Phone: [facility] Start: 03-23-2022 End: 03-23-2022 ambulatory TOBY PARADA [facility] Start: 03-20-2022 End: 03-20-[address] Toby Parada Work Phone: [facility] Start: 03-02-2022 End: 03-02-[address] Toby Parada Work Phone: [facility] Start: 02-23-2022 End: 02-23-2022 ambulatory GILMER K [facility] Start: 02-20-2022 End: 02-20-[address] Toby Parada Work Phone: [facility]-Laboratory Start: 02-17-2022 End: 02-17-[address] [facility] Start: 02-17-2022 End: 02-17-[address] Toby Parada Work Phone: [facility] Start: 02-01-2022 End: 02-01-2022 Emergency department patient visit Dr. Toby Parada Work Phone: [facility]-Emergency Department Start: 01-28-2022 End: 01-28-[address] Toby Parada Work Phone: [facility] Start: 01-06-2022 End: 01-06-[address] [facility] Start: 12-30-2021 End: 12-30-[address] Toby Parada Work Phone: [facility]-Outpatient Breast Imaging Start: 12-29-2021 End: 12-29-[address] Toby Parada Work Phone: [facility] Start: 12-25-2021 End: 12-25-2021 [facility] Start: 12-25-2021 End: 12-25-[address] Toby Parada Work Phone: [facility] Start: 12-10-2021 End: 12-10-[address] Toby Parada Work Phone: [facility] Start: 12-05-2021 End: 12-05-[address] [facility] Start: 12-04-2021 End: 12-04-[address] Toby Parada Work Phone: [facility] Start: 11-07-2021 End: 11-07-[address] Toby Parada Work Phone: [facility] Start: 10-24-2021 End: 10-24-[address] [facility] Start: 10-09-2021 End: 10-09-[address] [facility] Start: 10-09-2021 End: 10-09-[address] Toby Parada Work Phone: [facility] Start: 09-24-2021 Non-patient / Non-visit Dr. Teresita Parada Work Phone: [facility] Start: 09-17-2021 End: 09-17-[address] [facility] Start: 09-15-2021 End: 09-15-[address] [facility] Parada [facility] Start: 08-15-2021 Non-patient / Non-visit Dr. Teresita Parada Work Phone: [facility] Start: 08-12-2021 End: 08-12-[address] Toby Parada Work Phone: [facility] Start: 04-14-2012 End: 07-15-2012 Patient requested procedure Toby Parada DO Work Phone: [facility] Procedures Date Procedure Procedure Detail Performing Clinician Start: 12-22-2024 Liquid based cervica l cytology screening Dr. Toby Parada DO Work Phone: Comment on above: NEGATIVE FOR INTRAEP ITHELIAL LESION OR MALIGNANCY. This liquid based Th inPrep(R) pap test was screened withthe use of an image guided system. Start: 08-19-2023 COVID & INFLUENZA A/ B & RSV NAAT, ROUTINE Zina Villarreal APRN.CNP Work Phone: Start: 07-19-2023 US scan of thyroid Dr. Toby Parada Work Phone: Start: 06-16-2023 INFLUENZA VACCINE, A GE 6 MO - 64 YR, QUADRIVALENT (AFLURIA, FLULAVAL, FLUZONE) Toby Parada DO Work Phone: Start: 12-30-[address] Toby Parada Work Phone: Start: 10-09-[address] Barbra Parada Work Phone: Start: 08-12-[address] Dc Parada Work Phone: Group B Streptococcu s Culture Dr. Toby Parada Work Phone: H/O: section History of C-sectio n Dr. Toby Parada Work Phone: Comment on above: discussed TOLAC if s pontaneous, RLTCS scheduled for 05/12 @ 7:30am with SMTOLA consent signed 05/01/22 Investigation of transfusion reaction Dr. Toby Parada Work Phone: Microbial culture, routine D orlando Parada Work Phone: Urine culture Dr. Toby montgomery Work Phone: Plan of Treatment Date Care Activity Detail Author Start: 02-18-2032 Urine microalbumin profile DTa P,Tdap,Td Vaccine (3 - Td or Tdap) [facility] Start: 10-23-2030 Urine microalbumin profile DTA P,TDAP,TD (2 - Td or Tdap) [facility] Start: 12-26-2029 Screening for malign ant neoplasm of cervix Cervical Cancer Screening [facility] Start: 03-21-2025 End: 06-20-2025 25-hydroxyvitamin D3 [Mass/volume] in Serum or Plasma VITAMIN D 25 HYDROXY Lab Routine Well adult exam Expected: 03/21/2025, Expires: 06/20/2025 [facility] Comment on above: Expected: 03/21/2025 , Expires: 06/20/2025 Start: 03-21-2025 End: 06-20-2025 CBC W Auto Differential panel - Blood COMPLETE BLOOD COUNT AND DIFFERENTIAL Lab Routine Well adult exam Expected: 03/21/2025, Expires: 06/20/2025 [facility] Comment on above: Expected: 03/21/2025 , Expires: 06/20/2025 Start: 03-21-2025 End: 06-20-2025 Cobalamin (Vitamin B12) [Mass/volume] in Serum or Plasma VITAMIN B12 Lab Routine Well adult exam Expected: 03/21/2025, Expires: 06/20/2025 [facility] Comment on above: Expected: 03/21/2025 , Expires: 06/20/2025 Start: 03-21-2025 End: 06-20-2025 Comprehensive metabolic 2000 panel - Serum or Plasma COMPREHENSIVE METABOLIC PANEL Lab Routine Well adult exam Expected: 03/21/2025, Expires: 06/20/2025 [facility] Comment on above: Expected: 03/21/2025 , Expires: 06/20/2025 Start: 03-21-2025 End: 06-20-2025 Insulin [Units/volume] in Serum or Plasma INSULIN, TOTAL, SERUM Lab Routine Well adult exam Expected: 03/21/2025, Expires: 06/20/2025 [facility] Comment on above: Expected: 03/21/2025 , Expires: 06/20/2025 Start: 03-21-2025 End: 06-20-2025 Lipid 1996 panel - Serum or Plasma LIPID PANEL, FASTING Lab Routine Well adult exam Expected: 03/21/2025, Expires: 06/20/2025 [facility] Comment on above: Expected: 03/21/2025 , Expires: 06/20/2025 Start: 03-21-2025 End: 06-20-2025 Thyrotropin [Units/volume] in Serum or Plasma THYROID STIMULATING HORMONE Lab Routine Well adult exam Expected: 03/21/2025, Expires: 06/20/2025 [facility] Comment on above: Expected: 03/21/2025 , Expires: 06/20/2025 Start: 03-12-[address] [facility] Start: 01-26-2025 End: 01-26-2025 Patient encounter procedure 01/26/2025 9:20 AM EDT Office Visit [facility] [place] [address] [facility] [place] [address] Leah Mario APRN.E TAILER [address] [place] [address] Preventative Request [facility] [place] Comment on above: Preventative Request Start: 07-03-2024 End: 07-03-2024 Patient encounter procedure 07/03/2024 8:40 AM EST [facility] [place] [address] [facility] [place] [address] Toby Parada, [address] [facility] [address] 6 month follow up Family [facility] [place] Comment on above: 6 month follow up Start: 06-16-2024 Covid-19 Vaccine (#1) Covid-19 Vacci ne (#1) [facility] Comment on above: Postponed from 11/15 (Declined at this time) Start: 06-16-2024 Covid-19 Vaccine ( season) Covid-19 Vaccine ( season) [facility] Comment on above: Postponed from 03/12 (Declined at this time) Start: 03-27-2024 End: 06-26-2024 25-hydroxyvitamin D3 [Mass/volume] in Serum or Plasma VITAMIN D 25 HYDROXY Lab Routine Well adult exam Vitamin D deficiency Expected: 03/27/2024, Expires: 06/26/2024 [facility] Comment on above: Expected: 03/27/2024 , Expires: 06/26/2024 Start: 03-27-2024 End: 06-26-2024 CBC W Auto Differential panel - Blood COMPLETE BLOOD COUNT AND DIFFERENTIAL Lab Routine Well adult exam Expected: 03/27/2024, Expires: 06/26/2024 [facility] Comment on above: Expected: 03/27/2024 , Expires: 06/26/2024 Start: 03-27-2024 End: 06-26-2024 Comprehensive metabolic 2000 panel - Serum or Plasma COMPREHENSIVE METABOLIC PANEL Lab Routine Well adult exam Expected: 03/27/2024, Expires: 06/26/2024 [place] Work Phone: Comment on above: Expected: 03/27/2024 , Expires: 06/26/2024 Start: 03-27-2024 End: 06-26-2024 Hemoglobin A1c in Blood HEMOGLOBIN A1C Lab Routine Well adult exam Expected: 03/27/2024, Expires: 06/26/2024 [facility] Comment on above: Expected: 03/27/2024 , Expires: 06/26/2024 Start: 03-27-2024 End: 06-26-2024 Lipid 1996 panel - Serum or Plasma LIPID PANEL BASIC Lab Routine Well adult exam Expected: 03/27/2024, Expires: 06/26/2024 [facility] Comment on above: Expected: 03/27/2024 , Expires: 06/26/2024 Start: 03-27-2024 End: 06-26-2024 Thyrotropin [Units/volume] in Serum or Plasma THYROID STIMULATING HORMONE Lab Routine Well adult exam Expected: 03/27/2024, Expires: 06/26/2024 [facility] Comment on above: Expected: 03/27/2024 , Expires: 06/26/2024 Start: 03-27-2024 End: 06-26-2024 Thyroxine (T4) free [Mass/volume] in Serum or Plasma T4 FREE/FREE THYROXINE Lab Routine Well adult exam Expected: 03/27/2024, Expires: 06/26/2024 [facility] Comment on above: Expected: 03/27/2024 , Expires: 06/26/2024 Start: 03-27-2024 End: 03-27-2024 Patient encounter procedure 03/27/2024 10:00 AM EDT Office Visit [facility] [place] [address] [place] [address] Toby Parada DO [address] [place] [address] 3 month follow up [facility] [place] Comment on above: 3 month follow up Start: 03-12-2024 Covid-19 Vaccine ( season) Covid-19 Vaccine () [facility] Start: 03-12-2024 Covid-19 Vaccine () Covid-19 Vaccine () [facility] Start: 03-12-2024 Influenza vaccination Influenza Vacc ine (#1) [facility] Start: 10-18-2023 [facility] Start: 10-15-2023 [facility] Start: 09-29-2023 End: 12-29-2023 25-hydroxyvitamin D3 [Mass/volume] in Serum or Plasma VITAMIN D 25 HYDROXY Lab Routine Vitamin D deficiency Expected: 09/29/2023, Expires: 12/29/2023 [place] Work Phone: Comment on above: Expected: 09/29/2023 , Expires: 12/29/2023 Start: 06-16-2023 End: 09-15-2023 25-hydroxyvitamin D3 [Mass/volume] in Serum or Plasma VITAMIN D 25 HYDROXY Lab Routine Well adult exam Expected: 06/16/2023, Expires: 09/15/2023 [place] Work Phone: Comment on above: Expected: 06/16/2023 , Expires: 09/15/2023 Start: 06-16-2023 End: 09-15-2023 CBC W Auto Differential panel - Blood CBC + DIFF Lab Routine Well adult exam Expected: 06/16/2023, Expires: 09/15/2023 [place] Work Phone: Comment on above: Expected: 06/16/2023 , Expires: 09/15/2023 Start: 06-16-2023 End: 09-15-2023 Cobalamin (Vitamin B12) [Mass/volume] in Serum or Plasma VITAMIN B12 BLOOD Lab Routine Well adult exam Expected: 06/16/2023, Expires: 09/15/2023 [place] Work Phone: Comment on above: Expected: 06/16/2023 , Expires: 09/15/2023 Start: 06-16-2023 End: 09-15-2023 Comprehensive metabolic 2000 panel - Serum or Plasma COMP METABOLIC PANEL Lab Routine Well adult exam Expected: 06/16/2023, Expires: 09/15/2023 [place] Work Phone: Comment on above: Expected: 06/16/2023 , Expires: 09/15/2023 Start: 06-16-2023 End: 09-15-2023 Hemoglobin A1c in Blood HGB A1C Lab Routine Well adult exam Expected: 06/16/2023, Expires: 09/15/2023 [place] Work Phone: Comment on above: Expected: 06/16/2023 , Expires: 09/15/2023 Start: 06-16-2023 End: 09-15-2023 Iron and Iron binding capacity panel - Serum or Plasma IRON + TIBC Lab Routine Well adult exam Expected: 06/16/2023, Expires: 09/15/2023 [place] Work Phone: Comment on above: Expected: 06/16/2023 , Expires: 09/15/2023 Start: 06-16-2023 End: 09-15-2023 LIPID PANEL, NONFASTING LIPID PANEL, NONFASTING Lab Routine Well adult exam Expected: 06/16/2023, Expires: 09/15/2023 [place] Work Phone: Comment on above: Expected: 06/16/2023 , Expires: 09/15/2023 Start: 06-16-2023 End: 09-15-2023 Thyrotropin [Units/volume] in Serum or Plasma TSH BLD Lab Routine Well adult exam Expected: 06/16/2023, Expires: 09/15/2023 [place] Work Phone: Comment on above: Expected: 06/16/2023 , Expires: 09/15/2023 Start: 06-16-2023 End: 09-15-2023 Thyroxine (T4) free [Mass/volume] in Serum or Plasma T4 FREE/FREE THYROX Lab Routine Well adult exam Expected: 06/16/2023, Expires: 09/15/2023 [place] Work Phone: Comment on above: Expected: 06/16/2023 , Expires: 09/15/2023 Start: 06-16-2023 End: 09-15-2023 Triiodothyronine (T3) Free [Mass/volume] in Serum or Plasma T3 FREE BLD Lab Routine Well adult exam Expected: 06/16/2023, Expires: 09/15/2023 [place] Work Phone: Comment on above: Expected: 06/16/2023 , Expires: 09/15/2023 Start: 05-04-2023 PAP TESTING PAP TESTING [facility] Start: 05-04-2023 Screening for malign ant neoplasm of cervix [facility] Start: 2021 HPV TESTING HPV TESTING [facility] Start: 2021 Screening for malign ant neoplasm of cervix HPV Testing [facility] Start: 2018 HPV Vaccine (1 - 3-d ose SCDM series) HPV Vaccine (1 - 3-dose SCDM series) [facility] Start: 2010 Hepatitis B Vaccine (1 of 3 - 19+ 3-dose series) Hepatitis B Vaccine (1 of 3 - 19+ 3-dose series) [facility] Start: 2009 Anxiety Screening Anxiety Screening [facility] Start: 2009 HEPATITIS C SCREENING HEPATITIS C [facility] Start: 2009 Hepatitis C screening Hepatitis C [facility] Start: 1991 COVID-19 VACCINE (#1) COVID-19 VACCI NE (#1) [facility] Start: 1991 HEPATITIS B (1 of 3 - 3-dose series) HEPATITIS B (1 of 3 - 3-dose series) [facility] Start: 1991 Hepatitis B Vaccine (1 of 3 - 3-dose series) Hepatitis B Vaccine (1 of 3 - 3-dose series) [facility] ELVIRA / TRICHOMONA S AMPLIFICATION ELVIRA / TRICHOMONAS AMPLIFICATION Microbiology Routine Exposure to gonorrhea Encounter for assessment of STD exposure Ordered: 12/10/2022 [place] Work Phone: Comment on above: Ordered: 12/10/2022 Chlamydia trachomatis+Neisseria gonorrhoeae DNA [Presence] in Unspecified specimen by SHANDRA with probe detection GC/CHLAMYDIA DNA DET Lab Routine Exposure to gonorrhea Encounter for assessment of STD exposure Ordered: 12/10/2022 [place] Work Phone: Comment on above: Ordered: 12/10/2022 COVID & INFLUENZA A/ B & RSV PCR, ROUTINE COVID & INFLUENZA A/B & RSV PCR, ROUTINE Microbiology Routine URI, acute 03/16/2024 3:39 PM EDT [place] Work Phone: COVID & INFLUENZA A/ B & RSV PCR, ROUTINE COVID & INFLUENZA A/B & RSV PCR, ROUTINE Microbiology Routine URI, acute Ordered: 09/02/2024 [place] Work Phone: Comment on above: Ordered: 09/02/2024 MG Breast Diagnostic [facility] Work Phone: Patient Education [facility] Work Phone: Patient referral [facility] Work Phone: [place] Thyroid gland [facility] End: 02-01-2025 XR Knee - right 4 Views XR KNEE GENERAL 4V AP BOTH/PA BOTH/LAT/MERC RIGHT Radiology Routine Acute pain of right knee 1 Occurrences starting 01/03/2024 until 02/01/2025 [place] Work Phone: Comment on above: 1 Occurrences starti ng 01/03/2024 until 02/01/2025 End: 04-20-2026 XR Knee - right 4 Views XR KNEE GENERAL 4V AP BOTH/PA BOTH/LAT/MERC RIGHT Radiology Routine Chronic pain of right knee 1 Occurrences starting 03/21/2025 until 04/20/2026 [place] Work Phone: Comment on above: 1 Occurrences starti ng 03/21/2025 until 04/20/2026 [facility] Immunizations Immunization Date Immunization Notes Care Provider Poly lawsonyara 06-16-2023 influenza, injectabl e, quadrivalent, contains preservative Toby Parada DO Work Phone: [facility] Work Phone: 06-16-2023 influenza virus vaccine, unspecified formulation Lisa Portillo THOMAS Work Phone: [facility] 05-13-2022 influenza, injectabl e, quadrivalent, preservative free Dr. Toby Parada Work Phone: [facility] 02-17-2022 tetanus toxoid, redu shen diphtheria toxoid, and acellular pertussis vaccine, adsorbed Dr. Toby Parada Work Phone: [facility] 10-23-2020 tetanus toxoid, redu shen diphtheria toxoid, and acellular pertussis vaccine, adsorbed Krislyn Aberegg PA Work Phone: [facility] Work Phone: 06-23-2019 influenza, injectabl e, quadrivalent, contains preservative Krislyn Aberegg PA Work Phone: [facility] Work Phone: 05-04-2018 influenza, injectabl e, quadrivalent, contains preservative Krislyn Aberegg PA Work Phone: [facility] Work Phone: 04-15-2016 influenza, injectabl e, quadrivalent, contains preservative Krislyn Aberegg PA Work Phone: [facility] Work Phone: 06-28-2015 influenza, injectabl e, quadrivalent, contains preservative Krislyn Aberegg PA Work Phone: [facility] 05-02-2014 influenza, seasonal, injectable Krislyn Aberegg PA Work Phone: [facility] 04-29-2012 influenza virus vaccine, unspecified formulation Precious PARDO Work Phone: [facility] Payers Date Payer Category Payer Self-pay [id number] 2022 Medicaid [id number] 2022 Unknown [id number] 2012 Unknown [id number] 1990 Unknown [id number] [id number]. [id number] 1991 Unknown [id number] [id number]. [id number] 1991 Unknown [id number] [id number]. [id number] 1990 Unknown [id number] 2.16. [id number] Unknown [id number] [id number] Unknown [id number] [id number] Unknown [id number] [id number] Social History Date Type Detail Facility Start: 10-09-2021 End: 10-18-2023 Tobacco smoking status [facility] Unknown if ever smoked [facility] Start: 1990 Sex Assigned At Female C [facility] Start: 12-10-2022 End: 03-16-2024 Tobacco smoking status NHIS Ex-smoker [facility] Start: 03-15-2011 End: 03-15-2012 History of tobacco use Current smoker [facility] Start: 03-15-2011 End: 03-15-2012 History of tobacco use Cigarette Smoker [facility] Start: 12-10-2022 End: 03-16-2024 Tobacco use and exposure Smokeless tobacco non-user [facility] Start: 12-10-2022 End: 11-23-2024 Alcohol intake Current drinker of alcohol (finding) [facility] Start: 11-22-2020 History SDOH Alcohol Frequency 3 [facility] Start: 11-22-2020 History SDOH Alcohol Std Drinks 2 [facility] Start: 11-22-2020 History SDOH Social Connections Phone 5 [facility] Start: 11-22-2020 History SDOH Social Connections [address] [facility] Start: 11-22-2020 History SDOH Social Connections Meetings 1 [facility] Start: 11-22-2020 Education 12 [facility] Start: 05-06-2016 Alcohol Comment weekends [facility] Start: 06-16-2023 End: 03-21-2025 History of Social function [facility] Start: 06-16-2023 End: 03-21-2025 [facility] [employer] [facility] Has the [employer] [place], or [employer] threatened to shut off services in your home in past 12Mo No [facility] Are you now , , , , never or living with a partner? [facility] How often to you hav e a drink containing alcohol? 2-4 times a month [facility] How many standard drinks containing alcohol do you have on a typical day? 1 or 2 [facility] How often do you hav e 6 or more drinks on 1 occasion? Less than monthly [facility] Start: 06-12-2012 How hard is it for y ou to pay for the very basics like food, housing, medical care, and heating Patient refused [facility] Do you feel stress - tense, restless, nervous, or anxious, or unable to sleep at night because your mind is troubled all the time - these days [OSQ] Only a little [facility] (I/We) worried charly er (my/our) food would run out before (I/we) got money to buy more. Never true [facility] The food that (I/we) bought just didn't last, and (I/we) didn't have money to get more. Sometimes true [facility] Start: 07-22-2021 Gender identity Identifies as female gender (finding) [facility] Start: 07-22-2021 Sexual orientation Heterosexual (emelyn delarosa) [facility] How often to you hav e a drink containing alcohol? 2-3 time sa week [facility] How many standard drinks containing alcohol do you have on a typical day? 5 or 6 [facility] How often do you hav e 6 or more drinks on 1 occasion? Weekly [facility] How hard is it for y ou to pay for the very basics like food, housing, medical care, and heating Somewhat hard [facility] Do you feel stress - tense, restless, nervous, or anxious, or unable to sleep at night because your mind is troubled all the time - these days [OSQ] To some extent [facility] In the past 12 month s, was there a time when you were not able to pay the mortgage or rent on time? Yes [facility] How often to you hav e a drink containing alcohol? Monthly or less [facility] Functional Status Date Assessment Result Facility 03-21-2025 Total score [AUDIT-C] 2 03/21/20 12:30 PM EDT User, Mychart [facility] 03-21-2025 How often to you hav e a drink containing alcohol? Monthly or less 03/21/2025 12:30 PM EDT User, Mychart Monthly or less [facility] 03-21-[address] inks containing alcohol do you have on a typical day? 1 or 2 03/21/2025 12:30 PM EDT User, Mychart 1 or 2 [facility] 03-21-2025 How often do you hav e 6 or more drinks on 1 occasion? Less than monthly 03/21/2025 12:30 PM EDT User, Mychart Less than monthly [facility] 09-05-2014 Are you deaf, or do you have serious difficulty hearing No 09/05/2014 3:59 PM Corrine Dasilva MA No [facility] 09-05-2014 Are you blind, or do you have serious difficulty seeing, even when wearing glasses No 09/05/2014 3:59 PM Corrine Dasilva MA No [facility] 09-05-2014 Do you have serious difficulty walking or climbing stairs No 09/05/2014 3:59 PM Corrine Dasilva MA No [facility] 09-05-2014 Do you have difficul ty dressing or bathing No 09/05/2014 3:59 PM Corrine Dasilva MA No [facility] 09-05-2014 Because of a physica l, mental, or emotional condition, do you have difficulty doing errands alone such as visiting a physician's office or shopping No 09/05/2014 3:59 PM Corrine Dasilva MA No [facility] Mental Status Date Assessment Result Facility 09-05-2014 Because of a physica l, mental, or emotional condition, do you have serious difficulty concentrating, remembering, or making decisions No 09/05/2014 3:59 PM Corrine Dasilva MA No [facility] Clinical Notes 02-18-2015 to 03-21-2025 Toby Parada DO - 03/21/2025 9:57 PM EDT Note Date & Type Note Facility 03-21-2025 Note HNO ID: [id number] Author: TOBY PARADA DO Service: ? Author Type: Physician Type: Progress Notes Filed: 03/21/2025 22:00 Note Text: CC: Cande Henry is a 34 year old female who presents to the office for follow up HPI: Obesity, wanting to continue to work on weight loss. Has been trying to cut down on her sugars and starches in her diet. Struggling to cut back on portions. She was last on adipex about 1 year ago. She had lost 4lbs but admited she didn't start the medication right away due to an illness. Previously she tolerated the adipex medication well without obvious SE to medication. Weight is down to 220 lbs. She would like to restart the medication. She has had some stressors in the last year since her family lost their home of residence and had to move into a hotel setting until able to find a new home, this was almost 1 year of time. They are now back into a home and settling in which is helping her stressors. Right knee pain, she wasn't able to get her xray completed, needing to have this ordered again PAST MEDICAL HISTORY Diagnosis Date Atypical squamous cells of undetermined significance (ASCUS) on Papanicolaou smear of cervix 03/18/2016 Chlamydia 2010 Depression 01/25/2014 PCOS (polycystic ovarian syndrome) Thyromegaly 01/25/2014 PAST SURGICAL HISTORY Procedure Laterality Date DELIVERY ONLY 12/10/12 , low transverse Social History: SOCIAL HISTORY[1] FAMILY HISTORY Problem Relation Age of Onset Hypertension Mother Thyroid Mother Current Outpatient prescriptions: cholecalciferol, Vitamin D3, (VITAMIN D3) 1,250 mcg (50,000 unit) cap capsule Take 1 capsule by mouth one time a week. cyclobenzaprine (FLEXERIL) 10 mg tablet Take 1 tablet by mouth three times a day as needed for muscle spasm. diclofenac (VOLTAREN ARTHRITIS PAIN) 1 % topical gel Apply 2 g to affected area four times daily. As needed for joint pain lactobacillus combination no.4 (PROBIOTIC) 3 billion cell cap Take 1 capsule by mouth once daily. metFORMIN (GLUCOPHAGE) 500 mg tablet Take 1 tablet by mouth daily with dinner. naproxen (NAPROSYN) 500 mg tablet Take 1 tablet by mouth two times a day as needed (pain/inflammation, take with food.). pantoprazole DR (PROTONIX) 40 mg tablet Take 1 tablet by mouth once daily. topiramate (TOPAMAX) 25 mg tablet Take 1 tablet by mouth daily in the late afternoon. Phentermine HCl (ADIPEX-P) 37.5 mg tablet Take 1 tablet by mouth daily before breakfast for 30 days. BMI 36.10 Allergies: ALLERGIES Allergen Reactions Latex Rash ROS: See HPI PE: 03/21/25 1451 BP: 114/74 Pulse: 64 Resp: 16 Temp: 36.4 ?C (97.5 ?F) TempSrc: Left Tympanic Weight: 99.8 kg (220 lb) Gen: AANDO, NAD, non-toxic appearing, Pleasant, cooperative [...] intact, No rashes or lesions on exposed skin. No edema ASSESSMENT/PLAN: 1. Well adult exam - ICD9: V70.0, ICD10: Z00.00 (primary diagnosis) - Counseled on healthy diet and regular exercise - Discussed need and benefit for weight loss. BMI 34.53 kg/(m2) - INSULIN, TOTAL, SERUM - COMPREHENSIVE METABOLIC PANEL - COMPLETE BLOOD COUNT AND DIFFERENTIAL - LIPID PANEL, FASTING - THYROID STIMULATING HORMONE - VITAMIN D 25 HYDROXY - VITAMIN B12 2. Vitamin D deficiency - ICD9: 268.9, ICD10: E55.9 rx refilled Recheck labs - CHOLECALCIFEROL (VITAMIN D3) 1,250 MCG (50,000 UNIT) CAPSULE 3. Myalgia - ICD9: 729.1, ICD10: M79.10 rx refilled, recheck labs. - CYCLOBENZAPRINE 10 MG TABLET - NAPROXEN 500 MG TABLET 4. Gastroesophageal reflux disease with esophagitis, unspecified whether hemorrhage - ICD9: 530.11, ICD10: K21.00 - Discussed lifestyle modifications including losing weight, limiting caffeine, no meals three hours before sleep, and head of bed elevation - PROBIOTIC 3 BILLION CELL CAPSULE - PANTOPRAZOLE 40 MG TABLET,DELAYED RELEASE 5. Obesity, Class II, BMI 35-39.9 - ICD9: 278.00, ICD10: E66.812 Weight increasing - Behavioral intervention, - Eat well program, and - Add Phentermine She tolerated medication well in the past. Restarting medication and f/u in 2-3 months - METFORMIN 500 MG TABLET - TOPIRAMATE 25 MG TABLET - PHENTERMINE 37.5 MG TABLET 6. Chronic pain of right knee - ICD9: 719.46, 338.29, ICD10: M25.561, G89.29 Xray as orde (more content not included)... [facility] 03-21-2025 History of Present illness Narrative CC: Cande Henry is a 34 year old female who presents to the office for follow up HPI: Obesity, wanting to continue to work on weight loss. Has been trying to cut down on her sugars and starches in her diet. Struggling to cut back on portions. She was last on adipex about 1 year ago. She had lost 4lbs but admited she didn't start the medication right away due to an illness. Previously she tolerated the adipex medication well without obvious SE to medication. Weight is down to 220 lbs. She would like to restart the medication. She has had some stressors in the last year since her family lost their home of residence and had to move into a hotel setting until able to find a new home, this was almost 1 year of time. They are now back into a home and settling in which is helping her stressors. Right knee pain, she wasn't able to get her xray completed, needing to have this ordered again PAST MEDICAL HISTORY Diagnosis Date Atypical squamous cells of undetermined significance (ASCUS) on Papanicolaou smear of cervix 03/18/2016 Chlamydia 2010 Depression 01/25/2014 PCOS (polycystic ovarian syndrome) Thyromegaly 01/25/2014 PAST SURGICAL HISTORY Procedure Laterality Date DELIVERY ONLY 12/10/12 , low transverse Social History: SOCIAL HISTORY[1] FAMILY HISTORY Problem Relation Age of Onset Hypertension Mother Thyroid Mother Current Outpatient prescriptions: cholecalciferol, Vitamin D3, (VITAMIN D3) 1,250 mcg (50,000 unit) cap capsule Take 1 capsule by mouth one time a week. cyclobenzaprine (FLEXERIL) 10 mg tablet Take 1 tablet by mouth three times a day as needed for muscle spasm. diclofenac (VOLTAREN ARTHRITIS PAIN) 1 % topical gel Apply 2 g to affected area four times daily. As needed for joint pain lactobacillus combination no.4 (PROBIOTIC) 3 billion cell cap Take 1 capsule by mouth once daily. metFORMIN (GLUCOPHAGE) 500 mg tablet Take 1 tablet by mouth daily with dinner. naproxen (NAPROSYN) 500 mg tablet Take 1 tablet by mouth two times a day as needed (pain/inflammation, take with food.). pantoprazole DR (PROTONIX) 40 mg tablet Take 1 tablet by mouth once daily. topiramate (TOPAMAX) 25 mg tablet Take 1 tablet by mouth daily in the late afternoon. Phentermine HCl (ADIPEX-P) 37.5 mg tablet Take 1 tablet by mouth daily before breakfast for 30 days. BMI 36.10 Allergies: ALLERGIES Allergen Reactions Latex Rash ROS: See HPI PE: 03/21/25 1451 BP: 114/74 Pulse: 64 Resp: 16 Temp: 36.4 C (97.5 F) TempSrc: Left Tympanic Weight: 99.8 kg (220 lb) Gen: A&O, NAD, non-toxic appearing, Pleasant, cooperative [...] intact, No rashes or lesions on exposed skin. No edema ASSESSMENT/PLAN: 1. Well adult exam - ICD9: V70.0, ICD10: Z00.00 (primary diagnosis) - Counseled on healthy diet and regular exercise - Discussed need and benefit for weight loss. BMI 34.53 kg/(m^2) - INSULIN, TOTAL, SERUM - COMPREHENSIVE METABOLIC PANEL - COMPLETE BLOOD COUNT AND DIFFERENTIAL - LIPID PANEL, FASTING - THYROID STIMULATING HORMONE - VITAMIN D 25 HYDROXY - VITAMIN B12 2. Vitamin D deficiency - ICD9: 268.9, ICD10: E55.9 rx refilled Recheck labs - CHOLECALCIFEROL (VITAMIN D3) 1,250 MCG (50,000 UNIT) CAPSULE 3. Myalgia - ICD9: 729.1, ICD10: M79.10 rx refilled, recheck labs. - CYCLOBENZAPRINE 10 MG TABLET - NAPROXEN 500 MG TABLET 4. Gastroesophageal reflux disease with esophagitis, unspecified whether hemorrhage - ICD9: 530.11, ICD10: K21.00 - Discussed lifestyle modifications including losing weight, limiting caffeine, no meals three hours before sleep, and head of bed elevation - PROBIOTIC 3 BILLION CELL CAPSULE - PANTOPRAZOLE 40 MG TABLET,DELAYED RELEASE 5. Obesity, Class II, BMI 35-39.9 - ICD9: 278.00, ICD10: E66.812 Weight increasing - Behavioral intervention, - Eat well program, and - Add Phentermine She tolerated medication well in the past. Restarting medication and f/u in 2-3 months - METFORMIN 500 MG TABLET - TOPIRAMATE 25 MG TABLET - PHENTERMINE 37.5 MG TABLET 6. Chronic pain of right knee - ICD9: 719.46, 338.29, ICD10: M25.561, G89.29 Xray as ordered Need for weight loss - XR KNEE GENERAL 4V AP BOTH/PA BOTH/LAT/MERC RIGHT Toby Parada DO To ER if develops chest pain, shortness of breath, or severe worsening of symptoms. Discussed risks, benefits, alternatives, and potential side effects of medications. Patient expressed understanding and agreed with the plan. Toby Parada DO [address] [place] [address] [1] Social History Tobacco Use Smoking status: Former Current packs/day: 0.00 Types: Cigarettes Start date: 03/15/2011 Quit date: 03/15/2012 Years since quittin.0 Smokeless tobacco: Never Substance Use Topics Alcohol use: Yes Comment: weekends Drug use: No documented in this encounter [facility] 12-22-2024 Evaluation note Diagnosis Onset Date Resolution Encounter for routine gynecological examination noneactive December 22, 2024 2:36pm [facility] Work Phone: [phone]) 543-727206-13-2025 Progress [facility] [address], [address] [place] [address] OFFICE VISIT Date of Service: 12/22/24 MR#: [id number] Acct: [id number] Name: CANDE HENRYN Rep #: [id number] : 1990 Provider: Dr. 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 boulardii)) cholecalciferol (vitamin D3) 1,250 1,250 mcg PO QMONTH 12/22/24 12/22/24 History mcg (50,000 unit) capsule cyclobenzaprine 10 mg tablet 10 mg PO TID PRN 12/22/24 12/22/24 History diclofenac sodium 1 % topical gel 2 g topical ONCE 12/22/24 History metformin 500 mg tablet 500 mg PO QDAY 12/22/2412/10 History naproxen 500 mg tablet 500 mg PO BID PRN 12/22/24 0 12/22/24 History pantoprazole 40 mg tablet,delayed 40 mg PO QDAY 12/22/24 History release (Protonix) topiramate 25 mg tablet (Topamax) 25 mg PO QDAY 12/22/24 History Post menopausal: No Patient : No : No PFSH Medical History Thyromegaly Depression GERD (gastroesophageal reflux disease) Surgical History S/P History of cholecystectomy Family History (Updated 12/22/24 @ 14:47 by Brandie Valentine) Mother Hypertension Thyroid disorder Father Diabetes Social History adopted: No household members: spouse and children number of children: 1 current occupational status: employed current occupation: [employer] pets and animals: Yes pets and animals: dog(s) Smoking Status: Former smoker alcohol intake: current details: occasionally/not while substance use type: does not use caffeine: Yes what type of physical activity do you participate in: none seatbelt use: always do you feel safe at home: Yes additional social history: -Julian (daughter Antonette from previous relationship) History 2 Elective abortions Hx Para 2 Spontaneous abortions Hx # Term Pregnancies Ectopic pregnancies Hx # Pregnancies Multiple births # of living children 2 Past Pregnancies Del. Date Name GA/Weeks Outcome Route Bth Weight Infant Gen Labor Lgth Anesthesia Del Locatn Provider FOB 12/10/12 Gris 40 live - full term Female [facility] Dr. Brian Jordan 05/12/22 Amir live - full term Male [facility] Brian Delivery Date: 12/10/12 Last Updated by: Brandie Valentine Arrest of dilation at 7cm Delivery Date: 05/12/22 Last Updated by: Jenelle Crowley [facility] HPI Encounter for routine gynecological examination Details: CANDE HENRY is a 34 year old who presents for annual exam. Last PAP: 10/09/21 - ascus. hpv neg History of abnormal PAP:ascus Last mammogram: n/a History of abnormal mammogram: n/a Colon cancer screening: n/a Other preventative health care screenings: followed by pcp Female Reproductive History Cycle Length: 21-35 Bleeding Duration: 5 Questions: metorrhagia: No, sexually active: Yes, dyspareunia: No and PCB: No Menopausal Symptoms: No hot flashes, No night sweats, No weight change, No mood changes, No difficulty concentrating, No sleep problems and No change in libido ROS Const Constitutional: Reports as per HPI; Denies fatigue, increased appetite, poor appetite, night sweats, weight gain or weight loss Cardio Card: Denies chest pain Resp Resp: Denies cough or dyspnea GI GI: Reports as per HPI; Denies abdominal pain, bloating, constipation, nausea or vomiting : Reports as per HPI and other; Denies difficulty voiding, dysuria, hematuria, hot flashes, nipple discharge, pelvic pain, prolapsesymptoms, urinary frequency, urinary incontinence, urinaryurgency, vaginal discharge, vaginal dryness, vaginal odor or vaginal pruritus Skin Skin/Breast: Denies changing lesions, breast mass, breast pain, breast skin changes or nipple discharge Psych Psych: Denies anxiety, change in libido, depression or difficulty concentrating Exam Const General: cooperative, healthy appearing, comfortable, no acute distress, well developed and well groomed HENOK Head: normal to inspection and normocephalic Ears: hearing grossly normal bilaterally and external ears normal Nose: external nose normal Face and sinus: normal facial exam Neck Neck: normal visual inspection, full ROM and no lymphadenopathy Thyroid: thyroid normal Chest Chest palpation & inspection: normal inspection of the chest Breast inspection: normal inspection of the breasts and normal inspection of theaxillae Breast palpation: normal palpation of the breasts, normal palpation of the axillae and no axillary lymphadenopathy Resp Effort & Inspection: normal respiratory effort GI Inspection: normal to inspection and non-distended Palpation: soft, no hepatosplenomegaly and no guarding General: bladder normal to palpation External Female Exam: normal external appearance, normal appearance of the urethra and no lesions Urethra: normal appearance of the urethra and normal palpation Speculum Exam - Vagina: normal appearance of the vagina and normal vaginal discharge Speculum Exam - Cervix: normal appearance of the cervix, no cervical discharge, no lesions and nontender Bimanual Exam- Vagina & Uterus: normal bimanual exam, uterine size normal, bladder normal to palpation, No tender, uterine mobility normal, consistency normal, non-tender and no cervical motion tenderness Bimanual Exam- Adnexa, other: normal adnexae, no masses and non-tender Skin General: no rashes or lesions noted Neuro General: patient alert, moves all extremities and no focal motor deficits Extrem General: normal to inspection and no pedal edema Psych Appearance: grossly normal Mental Status: mental status grossly normal Affect: normal affect Speech and Movement: speech and movement normal Attitude: cooperative Coding Level of Care Code Off vis,est,prev 18-39yrs Diagnoses Encounter for routine gynecological examination Z01.419 Assessment and Plan Assessment and Plan (1) Encounter for routine gynecological examination: Plan: Cervical cancer screening: pap done today Breast cancer screening: mammogram start age 40 STD prevention and contraceptive options including their risks, benefits, and alternatives were reviewed with the patient and she chooses: none Encouraged maintenance of a healthy weight and active lifestyle and handout given. Calcium/vitamin D recommendations provided. Annual exam handout including recommendations for good health guidelines and basic screening information given. Problem list up to date, see problem list details for any additional plan information. follow up in one year for annual health maintenance exam or sooner if needed. 12/22/24 1528 e Kathi DO> Date _ Patricia Borrero DO Cosigner Signature: Date (if applicable) CC: ~ [facility]06-13-2025 Progress note Author Patricia Armenta [facility] Note Date/Time December 22, 2024 3:28 pm [facility] [address], [address] [place] [address] OFFICE VISIT Date of Service: 12/22/24 MR#: [id number] Acct: [id number] Name: CANDE HENRY Rep #: [id number] : 1990 Provider: Dr. 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 boulardii)) cholecalciferol (vitamin D3) 1,250 1,250 mcg PO QMONTH 12/22/24 12/22/24 History mcg (50,000 unit) capsule cyclobenzaprine 10 mg tablet 10 mg PO TID PRN 12/22/24 12/22/24 History diclofenac sodium 1 % topical gel 2 g topical ONCE 12/22/24 History metformin 500 mg tablet 500 mg PO QDAY 12/22/2412/10 History naproxen 500 mg tablet 500 mg PO BID PRN 12/22/24 0 12/22/24 History pantoprazole 40 mg tablet,delayed 40 mg PO QDAY 12/22/24 History release (Protonix) topiramate 25 mg tablet (Topamax) 25 mg PO QDAY 12/22/24 History Post menopausal: No Patient : No : No [facility] Medical History Thyromegaly Depression GERD (gastroesophageal reflux disease) Surgical History S/P History of cholecystectomy Family History (Updated 12/22/24 @ 14:47 by Brandie Valentine) Mother Hypertension Thyroid disorder Father Diabetes Social History adopted: No household members: spouse and children number of children: 1 current occupational status: employed current occupation: [employer] pets and animals: Yes pets and animals: dog(s) Smoking Status: Former smoker alcohol intake: current details: occasionally/not while substance use type: does not use caffeine: Yes what type of physical activity do you participate in: none seatbelt use: always do you feel safe at home: Yes additional social history: -Julian (daughter Antonette from previous relationship) History 2 Elective abortions Hx Para 2 Spontaneous abortions Hx # Term Pregnancies Ectopic pregnancies Hx # Pregnancies Multiple births # of living children 2 Past Pregnancies Del. Date Name GA/Weeks Outcome Route Bth Weight Infant Gen Labor Lgth Anesthesia Del Locatn Provider FOB 12/10/12 Gris 40 live - full term Female [facility] Dr. Brian Jordan 05/12/22 Amir live - full term Male [facility] Ryanalexiamaurice Delivery Date: 12/10/12 Last Updated by: Brandie Valentine Arrest of dilation at 7cm Delivery Date: 05/12/22 Last Updated by: Jenelle Crowley [facility] HPI Encounter for routine gynecological examination Details: CANDE HENRY is a 34 year old who presents for annual exam. Last PAP: 10/09/21 - ascus. hpv neg History of abnormal PAP:ascus Last mammogram: n/a History of abnormal mammogram: n/a Colon cancer screening: n/a Other preventative health care screenings: followed by pcp Female Reproductive History Cycle Length: 21-35 Bleeding Duration: 5 Questions: metorrhagia: No, sexually active: Yes, dyspareunia: No and PCB: No Menopausal Symptoms: No hot flashes, No night sweats, No weight change, No mood changes, No difficulty concentrating, No sleep problems and No change in libido ROS Const Constitutional: Reports as per HPI; Denies fatigue, increased appetite, poor appetite, night sweats, weight gain or weight loss Cardio Card: Denies chest pain Resp Resp: Denies cough or dyspnea GI GI: Reports as per HPI; Denies abdominal pain, bloating, constipation, nausea or vomiting : Reports as per HPI and other; Denies difficulty voiding, dysuria, hematuria, hot flashes, nipple discharge, pelvic pain, prolapse symptoms, urinary frequency, urinary incontinence, urinaryurgency, vaginal discharge, vaginal dryness, vaginal odor or vaginal pruritus Skin Skin/Breast: Denies changing lesions, breast mass, breast pain, breast skin changes or nipple discharge Psych Psych: Denies anxiety, change in libido, depression or difficulty concentrating Exam Const General: cooperative, healthy appearing, comfortable, no acute distress, well developed and well groomed HENOK Head: normal to inspection and normocephalic Ears: hearing grossly normal bilaterally and external ears normal Nose: external nose normal Face and sinus: normal facial exam Neck Neck: normal visual inspection, full ROM and no lymphadenopathy Thyroid: thyroid normal Chest Chest palpation & inspection: normal inspection of the chest Breast inspection: normal inspection of the breasts and normal inspection of theaxillae Breast palpation: normal palpation of the breasts, normal palpation of the axillae and no axillary lymphadenopathy Resp Effort & Inspection: normal respiratory effort GI Inspection: normal to inspection and non-distended Palpation: soft, no hepatosplenomegaly and no guarding General: bladder normal to palpation External Female Exam: normal external appearance, normal appearance of the urethra and no lesions Urethra: normal appearance of the urethra and normal palpation Speculum Exam - Vagina: normal appearance of the vagina and normal vaginal discharge Speculum Exam - Cervix: normal appearance of the cervix, no cervical discharge, no lesions and nontender Bimanual Exam- Vagina & Uterus: normal bimanual exam, uterine size normal, bladder normal to palpation, No tender, uterine mobility normal, consistency normal, non-tender and no cervical motion tenderness Bimanual Exam- Adnexa, other: normal adnexae, no masses and non-tender Skin General: no rashes or lesions noted Neuro General: patient alert, moves all extremities and no focal motor deficits Extrem General: normal to inspection and no pedal edema Psych Appearance: grossly normal Mental Status: mental status grossly normal Affect: normal affect Speech and Movement: speech and movement normal Attitude: cooperative Coding Level of Care Code Off vis,est,prev 18-39yrs Diagnoses Encounter for routine gynecological examination Z01.419 Assessment and Plan Assessment and Plan (1) Encounter for routine gynecological examination: Plan: Cervical cancer screening: pap done today Breast cancer screening: mammogram start age 40 STD prevention and contraceptive options including their risks, benefits, and alternatives were reviewed with the patient and she chooses: none Encouraged maintenance of a healthy weight and active lifestyle and handout given. Calcium/vitamin D recommendations provided. Annual exam handout including recommendations for good health guidelines and basic screening information given. Problem list up to date, see problem list details for any additional plan information. follow up in one year for annual health maintenance exam or sooner if needed. 12/22/24 1528 <Electronically signed by Patricia Hwang DO> Date _ Patricia Borrero DO Cosigner Signature: Date (if applicable) CC: ~ [facility] [employer] [facility] Work Phone: 1(328) 808-370805-15-2025 NoteHNO ID: [id number] Author: PRECIOUS MOSES PA Service: ? Author Type: Physician Inker And Opaquer Type: Progress Notes Filed: 11/23/2024 16:08 Note Text: [facility] Subjective Cande Henry is a 34 year old female. Patient presents with: Abdominal Pain: Vomiting, diarrhea x 1 day HPI Emesis and Hematemesis: - Onset today. - Two episodes of emesis; second episode with hematemesis, described as streaked with blood. - No further emesis since the second episode. - Able to tolerate oral fluids since the last episode. Diarrhea: - One episode today. - Denies hematochezia or melena. Abdominal Pain: - Severe abdominal pain, rated 10/10. - Described as crampy and localized to the upper abdomen. - Pain exacerbated by sitting up straight. - No analgesics taken. Review of Systems Ears/Nose/Mouth/Throat: (-) runny nose, (-) sore throat Respiratory: (+) cough Gastrointestinal: (+) vomiting with blood streaks, (+) diarrhea, (+) abdominal pain, (-) blood in stool, (-) black/tarry stool Objective BP 145/96 Pulse 102 Temp 36.9 ?C (98.5 ?F) Resp 20 Wt 95 kg (209 lb 7 oz) LMP 11/02/2024 (Approximate) SpO2 99% BMI 32.87 kg/m? Physical Exam General: No acute distress. HEENT: Oral mucosa moist. Abd: Tenderness to palpation in the upper abdomen. {1. Hematemesis with nausea (K92.0) 2. Generalized abdominal pain (R10.84) - Hematemesis with two episodes of vomiting today, one with blood streaks. Severe generalized abdominal pain rated 10/10, described as crampy, with difficulty sitting up straight. One episode of diarrhea, no hematochezia or melena. Mild cough, no other URI symptoms. - Abdominal pain and hematemesis concerning for potential underlying condition; differential includes viral gastroenteritis, but severity of pain necessitates further evaluation. - Advised immediate evaluation in the emergency room for abdominal imaging and further diagnostic workup. and Recording using [employer] software for draft documentation of the visit was discussed with the patient/authorized tax compliance representative; all questions welcomed and answered. Patient/authorized tax compliance representative agreed to proceed [facility] History of Present illness Narrative* Precious Moses PA - 11/23/2024 4:07 PM EDT [facility] Subjective Cande Henry is a 34 year old female. Patient presents with: Abdominal Pain: Vomiting, diarrhea x 1 day HPI Emesis and Hematemesis: - Onset today. - Two episodes of emesis; second episode with hematemesis, described as streaked with blood. - No further emesis since the second episode. - Able to tolerate oral fluids since the last episode. Diarrhea: - One episode today. - Denies hematochezia or melena. Abdominal Pain: - Severe abdominal pain, rated 10/10. - Described as crampy and localized to the upper abdomen. - Pain exacerbated by sitting up straight. - No analgesics taken. Review of Systems Ears/Nose/Mouth/Throat: (-) runny nose, (-) sore throat Respiratory: (+) cough Gastrointestinal: (+) vomiting with blood streaks, (+) diarrhea, (+) abdominal pain, (-) blood in stool, (-) black/tarry stool Objective BP 145/96 Pulse 102 Temp 36.9 C (98.5 F) Resp 20 Wt 95 kg (209 lb 7 oz) LMP 11/02/2024 (Approximate) SpO2 99% BMI 32.87 kg/m Physical Exam General: No acute distress. HEENT: Oral mucosa moist. Abd: Tenderness to palpation in the upper abdomen. {1. Hematemesis with nausea (K92.0) 2. Generalized abdominal pain (R10.84) - Hematemesis with two episodes of vomiting today, one with blood streaks. Severe generalized abdominal pain rated 10/10, described as crampy, with difficulty sitting up straight. One episode of diarrhea, no hematochezia or melena. Mild cough, no other URI symptoms. - Abdominal pain and hematemesis concerning for potential underlying condition; differential includes viral gastroenteritis, but severity of pain necessitates further evaluation. - Advised immediate evaluation in the emergency room for abdominal imaging and further diagnostic workup. and Recording using [employer] software for draft documentation of the visit was discussed with the patient/authorized tax compliance representative; all questions welcomed and answered. Patient/authorized tax compliance representative agreed to proceed MDM Procedures [facility] Telephone encounter Note * Telephone Encounter - Cheyenne Hammond LPN - 10/23/2024 2:08 PM EDT Prescription Refill Information The patient has been identified by name and date of : Yes Caregiver verified no other encounters exist for this prescription request: Yes Caregiver confirmed with patient/requestor that no other refills are due, in the near future, with this provider at this time: Yes The last office visit in the department: 03/27/24 Does the patient have a future office visit with this provider/department: No Requested Prescriptions Pending Prescriptions Disp Refills cyclobenzaprine (FLEXERIL) 10 mg tablet 30 tablet 11 Sig: Take 1 tablet by mouth three times a day as needed for muscle spasm. naproxen (NAPROSYN) 500 mg tablet 60 tablet 11 Sig: Take 1 tablet by mouth two times a day as needed (pain/inflammation, take with food.). lactobacillus combination no.4 (PROBIOTIC) 3 billion cell cap 30 capsule 11 Sig: Take 1 capsule by mouth once daily. Cheyenne Hammond LPN October 23, 2024 2:08 PM [facility]04-14-2025 Miscellaneous Notes* Telephone Encounter - Cheyenne Hammond LPN - 10/23/2024 2:08 PM EDT Prescription Refill Information The patient has been identified by name and date of : Yes Caregiver verified no other encounters exist for this prescription request: Yes Caregiver confirmed with patient/requestor that no other refills are due, in the near future, with this provider at this time: Yes The last office visit in the department: 03/27/24 Does the patient have a future office visit with this provider/department: No Requested Prescriptions Pending Prescriptions Disp Refills cyclobenzaprine (FLEXERIL) 10 mg tablet 30 tablet 11 Sig: Take 1 tablet by mouth three times a day as needed for muscle spasm. naproxen (NAPROSYN) 500 mg tablet 60 tablet 11 Sig: Take 1 tablet by mouth two times a day as needed (pain/inflammation, take with food.). lactobacillus combination no.4 (PROBIOTIC) 3 billion cell cap 30 capsule 11 Sig: Take 1 capsule by mouth once daily. Cheyenne Hammond LPN October 23, 2024 2:08 PM documented in this encounterPrem[facility]04-14-[facility]25 Telephone encounter Note * Telephone Encounter - Cameron Marie LPN - 10/23/2024 1:46 PM EDT Prescription Refill Information The patient has been identified by name and date of : Yes Caregiver verified no other encounters exist for this prescription request: Yes Caregiver confirmed with patient/requestor that no other refills are due, in the near future, with this provider at this time: Yes The last office visit in the department: 03/27/24 Does the patient have a future office visit with this provider/department: No Requested Prescriptions Pending Prescriptions Disp Refills pantoprazole DR (PROTONIX) 40 mg tablet 30 tablet 5 Sig: Take 1 tablet by mouth once daily. cholecalciferol, Vitamin D3, (VITAMIN D3) 1,250 mcg (50,000 unit) cap capsule 4 capsule 2 Sig: Take 1 capsule by mouth one time a week. topiramate (TOPAMAX) 25 mg tablet 30 tablet 2 Sig: Take 1 tablet by mouth daily in the late afternoon. diclofenac (VOLTAREN ARTHRITIS PAIN) 1 % topical gel 100 g 1 Sig: Apply 2 g to affected area four times daily. As needed for joint pain metFORMIN (GLUCOPHAGE) 500 mg tablet 90 tablet 1 Sig: Take 1 tablet by mouth daily with dinner. Cameron Marie LPN October 23, 2024 1:46 PM [facility]04-14-2025 Miscellaneous Notes* Telephone Encounter - Cameron Marie LPN - 10/23/2024 1:46 PM EDT Prescription Refill Information The patient has been identified by name and date of : Yes Caregiver verified no other encounters exist for this prescription request: Yes Caregiver confirmed with patient/requestor that no other refills are due, in the near future, with this provider at this time: Yes The last office visit in the department: 03/27/24 Does the patient have a future office visit with this provider/department: No Requested Prescriptions Pending Prescriptions Disp Refills pantoprazole DR (PROTONIX) 40 mg tablet 30 tablet 5 Sig: Take 1 tablet by mouth once daily. cholecalciferol, Vitamin D3, (VITAMIN D3) 1,250 mcg (50,000 unit) cap capsule 4 capsule 2 Sig: Take 1 capsule by mouth one time a week. topiramate (TOPAMAX) 25 mg tablet 30 tablet 2 Sig: Take 1 tablet by mouth daily in the late afternoon. diclofenac (VOLTAREN ARTHRITIS PAIN) 1 % topical gel 100 g 1 Sig: Apply 2 g to affected area four times daily. As needed for joint pain metFORMIN (GLUCOPHAGE) 500 mg tablet 90 tablet 1 Sig: Take 1 tablet by mouth daily with dinner. Cameron Marie LPN October 23, 2024 1:46 PM documented in this encounterPrem[facility]02-22-2025 [id number] (AGENT OF COVID-19) RNA: Not detected INFLUENZA A RNA: Not detected INFLUENZA B RNA: Not detected RESPIRATORY SYNCYTIAL VIRUS (RSV) RNA: Not detectedPrem[facility] Health [facility] SouthComment on above:Performed By: #### [id number] #### [facility] CLIA [id number] [address] [place] [address] OF [id number] NoteHNO ID: [id number] Author: ZINA VILLARREAL APRN.E TAILER Service: ? Author Type: Nurse Practitioner Type: Progress Notes Filed: 09/02/2024 12:15 Note Text: CC: Patient presents with: Fever: Cough, chest congestion x3 days HPI: Cande Henry is a 34 year old female who presents to the office with complaint of chest congestion, head congestion, and cough, nonproductive for 3 days. Symptoms are staying the same. Associated symptoms includes cough. Denies wheezing, dyspnea, nausea, vomiting , and diarrhea. Treatments tried include nothing so far. with no relief of symptoms. Sick contacts: unknown. History of asthma, frequent episodes of bronchitis, chronic bronchitis, bronchiectasis or COPD: No Smoker: No Seasonal/environmental allergies: No The ROS is otherwise negative. The patient's pmh, medications, allergies, and past visits are reviewed. PHYSICAL EXAM: BP 137/85 Pulse 86 Temp 36.4 ?C (97.5 ?F) Resp 18 Wt 95.4 kg (210 lb 5.1 oz) LMP 12/27/2023 (Exact Date) SpO2 100% BMI 33.01 kg/m? General appearance: alert, cooperative, pleasant, in no acute distress Head: Normocephalic Eyes: EOM's intact, conjunctiva pink and moist, no icterus, sclera white, non-injected Ears: Right ear: External ear/canal- Normal, TM - clear with good landmarks. Left ear: External ear/canal- Normal, TM - clear with good landmarks Oropharynx:moist without lesions, No erythema, exudates or tonsillar hypertrophy. Heart: Negative. RRR without obvious murmur, gallop, or rubs. No ectopy. Lungs: clear to auscultation, without rales or wheeze, good air exchange PAST MEDICAL HISTORY Diagnosis Date Atypical squamous cells of undetermined significance (ASCUS) on Papanicolaou smear of cervix 03/18/2016 Chlamydia 2010 Depression 01/25/2014 PCOS (polycystic ovarian syndrome) Thyromegaly 01/25/2014 PAST SURGICAL HISTORY Procedure Laterality Date DELIVERY ONLY 12/10/12 , low transverse ALLERGIES Latex MEDICATIONS metFORMIN (GLUCOPHAGE) 500 mg tablet Take 1 tablet by mouth daily with dinner. topiramate (TOPAMAX) 25 mg tablet Take 1 tablet by mouth daily in the late afternoon. diclofenac (VOLTAREN ARTHRITIS PAIN) 1 % topical gel Apply 2 g to affected area four times daily. As needed for joint pain cholecalciferol, Vitamin D3, (VITAMIN D3) 1,250 mcg (50,000 unit) cap capsule Take 1 capsule by mouth one time a week. pantoprazole DR (PROTONIX) 40 mg tablet Take 1 tablet by mouth once daily. cyclobenzaprine (FLEXERIL) 10 mg tablet Take 1 tablet by mouth three times daily as needed for muscle spasm. naproxen (NAPROSYN) 500 mg tablet Take 1 tablet by mouth twice daily as needed (pain/inflammation, take with food.). lactobacillus combination no.4 (PROBIOTIC) 3 billion cell cap Take 1 capsule by mouth once daily. FAMILY HISTORY Problem Relation Age of Onset Hypertension Mother Thyroid Mother Social History Tobacco Use Smoking status: Former Current packs/day: 0.00 Types: Cigarettes Start date: 03/15/2011 Quit date: 03/15/2012 Years since quittin.4 Smokeless tobacco: Never Substance Use Topics Alcohol use: Yes Comment: weekends Drug use: No ASSESSMENT/PLAN: 1. URI, acute - ICD9: 465.9, ICD10: J06.9 - COVID AND INFLUENZA A/B AND RSV PCR, ROUTINE Prescription instructions reviewed with patient as applicable. Potential red flag symptoms discussed with the patient. Reviewed appropriate action plan to take if red flag symptoms occur. Patient agreeable to treatment plan. Zina Villarreal APRN.[facility]02-22-2025 History of Present illness Narrative* Zina Villarreal APRN.[facility] - 09/02/2024 12:10 PM EST CC: Patient presents with: Fever: Cough, chest congestion x3 days HPI: Cande Henry is a 34 year old female who presents to the office with complaint of chest congestion, head congestion, and cough, nonproductive for 3 days. Symptoms are staying the same. Associated symptoms includes cough. Denies wheezing, dyspnea, nausea, vomiting , and diarrhea. Treatments tried include nothing so far. with no relief of symptoms. Sick contacts: unknown. History of asthma, frequent episodes of bronchitis, chronic bronchitis, bronchiectasis or COPD: No Smoker: No Seasonal/environmental allergies: No The ROS is otherwise negative. The patient's pmh, medications, allergies, and past visits are reviewed. PHYSICAL EXAM: BP 137/85 Pulse 86 Temp 36.4 C (97.5 F) Resp 18 Wt 95.4 kg (210 lb 5.1 oz) LMP 12/27/2023(Exact Date) SpO2 100% BMI 33.01 kg/m General appearance: alert, cooperative, pleasant, in no acute distress Head: Normocephalic Eyes: EOM's intact, conjunctiva pink and moist, no icterus, sclera white, non-injected Ears: Right ear: External ear/canal- Normal, TM - clear with good landmarks. Left ear: External ear/canal- Normal, TM - clear with good landmarks Oropharynx:moist without lesions, No erythema, exudates or tonsillar hypertrophy. Heart: Negative. RRR without obvious murmur, gallop, or rubs. No ectopy. Lungs: clear to auscultation, without rales or wheeze, good air exchange PAST MEDICAL HISTORY Diagnosis Date Atypical squamous cells of undetermined significance (ASCUS) on Papanicolaou smear of cervix 03/18/2016 Chlamydia 2010 Depression 01/25/2014 PCOS (polycystic ovarian syndrome) Thyromegaly 01/25/2014 PAST SURGICAL HISTORY Procedure Laterality Date DELIVERY ONLY 12/10/12 , low transverse ALLERGIES Latex MEDICATIONS metFORMIN (GLUCOPHAGE) 500 mg tablet Take 1 tablet by mouth daily with dinner. topiramate (TOPAMAX) 25 mg tablet Take 1 tablet by mouth daily in the late afternoon. diclofenac (VOLTAREN ARTHRITIS PAIN) 1 % topical gel Apply 2 g to affected area four times daily. As needed for joint pain cholecalciferol, Vitamin D3, (VITAMIN D3) 1,250 mcg (50,000 unit) cap capsule Take 1 capsule by mouth one time a week. pantoprazole DR (PROTONIX) 40 mg tablet Take 1 tablet by mouth once daily. cyclobenzaprine (FLEXERIL) 10 mg tablet Take 1 tablet by mouth three times daily as needed for muscle spasm. naproxen (NAPROSYN) 500 mg tablet Take 1 tablet by mouth twice daily as needed (pain/inflammation, take with food.). lactobacillus combination no.4 (PROBIOTIC) 3 billion cell cap Take 1 capsule by mouth once daily. FAMILY HISTORY Problem Relation Age of Onset Hypertension Mother Thyroid Mother Social History Tobacco Use Smoking status: Former Current packs/day: 0.00 Types: Cigarettes Start date: 03/15/2011 Quit date: 03/15/2012 Years since quittin.4 Smokeless tobacco: Never Substance Use Topics Alcohol use: Yes Comment: weekends Drug use: No ASSESSMENT/PLAN: 1. URI, acute - ICD9: 465.9, ICD10: J06.9 - COVID & INFLUENZA A/B & RSV PCR, ROUTINE Prescription instructions reviewed with patient as applicable. Potential red flag symptoms discussed with the patient. Reviewed appropriate action plan to take if red flag symptoms occur. Patient agreeable to treatment plan. Zina Villarreal APRN.E TAILER documented in this encounterPremier [facility]09-16-[facility]24 History of Present illness Narrative* Toby Parada, DO - 03/27/2024 10:46 AM EDT CC: Cande Henry is a 33 year old female who presents to the office for follow up HPI: She is post from of her 2nd child, son Fernandez, whom is now 18 months old She had some left nipple discharge/drainage that looked like pus yesterday. Resolved after using warm compresses and expression of the pus out the nipple. No pain or discharge now Obesity, wanting to continue to work on weight loss. Has been trying to cut down on her sugars and starches in her diet. Struggling to cut back on portions. She was just started on Adipex about 6 months ago. She has lost 4lbs but admits she didn't start the medication right away due to an illness. Tolerating medication well without obvious SE to medication. She is taking as prescribed. Weight is d own to 219 lbs. She would like to continue the medication. She is okay with adding on another medication if able PAST MEDICAL HISTORY Diagnosis Date Atypical squamous cells of undetermined significance (ASCUS) on Papanicolaou smear of cervix 03/18/2016 Chlamydia 2010 Depression 01/25/2014 PCOS (polycystic ovarian syndrome) Thyromegaly 01/25/2014 PAST SURGICAL HISTORY Procedure Laterality Date DELIVERY ONLY 12/10/12 , low transverse Social History: Social History Tobacco Use Smoking status: Former Current packs/day: 0.00 Types: Cigarettes Start date: 03/15/2011 Quit date: 03/15/2012 Years since quittin.0 Smokeless tobacco: Never Substance Use Topics Alcohol use: Yes Comment: weekends Drug use: No FAMILY HISTORY Problem Relation Age of Onset Hypertension Mother Thyroid Mother Current Outpatient prescriptions: cephALEXin (KEFLEX) 500 mg capsule Take 1 capsule by mouth four times daily for 10 days. Phentermine HCl (ADIPEX-P) 37.5 mg tablet Take 1 tablet by mouth daily before breakfast for 30 days. BMI 36.10 metFORMIN (GLUCOPHAGE) 500 mg tablet Take 1 tablet by mouth daily with dinner. topiramate (TOPAMAX) 25 mg tablet Take 1 tablet by mouth daily in the late afternoon. diclofenac (VOLTAREN ARTHRITIS PAIN) 1 % topical gel Apply 2 g to affected area four times daily. As needed for joint pain cholecalciferol, Vitamin D3, (VITAMIN D3) 1,250 mcg (50,000 unit) cap capsule Take 1 capsule by mouth one time a week. pantoprazole DR (PROTONIX) 40 mg tablet Take 1 tablet by mouth once daily. cyclobenzaprine (FLEXERIL) 10 mg tablet Take 1 tablet by mouth three times daily as needed for muscle spasm. naproxen (NAPROSYN) 500 mg tablet Take 1 tablet by mouth twice daily as needed (pain/inflammation, take with food.). lactobacillus combination no.4 (PROBIOTIC) 3 billion cell cap Take 1 capsule by mouth once daily. Allergies: ALLERGIES Allergen Reactions Latex Rash ROS: See HPI PE: 03/27/24 1007 BP: 116/80 Pulse: 80 Resp: 16 Temp: 36.1 C (97 F) TempSrc: Left Tympanic Weight: 100 kg (220 lb 7.4 oz) Gen: A&O, NAD, non-toxic appearing, Pleasant, cooperative HEENT: NT/AC, PERRLA, EOMs intact b/l, nares clear and patent b/l, pharynx without erythema, exudate or lesions. Uvula midline. Neck: supple, No cervical LAD, no thyromegaly, [...] intact, No rashes or lesions on exposed skin. Central obesity Left nipple and breast without palpable abscess or drainage currently ASSESSMENT/PLAN: 1. Dysmetabolic syndrome - ICD9: 277.7, ICD10: E88.810 (primary diagnosis) Add on metformin Continue adipex Keep working on weight loss process 2. Well adult exam - ICD9: V70.0, ICD10: Z00.00 - COMPREHENSIVE METABOLIC PANEL - COMPLETE BLOOD COUNT AND DIFFERENTIAL - LIPID PANEL BASIC - HEMOGLOBIN A1C - THYROID STIMULATING HORMONE - T4 FREE/FREE THYROXINE - VITAMIN D 25 HYDROXY 3. Vitamin D deficiency - ICD9: 268.9, ICD10: E55.9 Continue supplemetn - VITAMIN D 25 HYDROXY 4. Obesity, Class II, BMI 35-39.9 - [...] track your calories and exercise as well. Add on metformin, continue adipex - PHENTERMINE 37.5 MG TABLET - METFORMIN 500 MG TABLET 5. Nipple discharge in female - ICD9: 611.79, ICD10: N64.52 Resolved, only start Keflex rx if this restarts Likely still post related Toby Parada DO To ER if develops chest pain, shortness of breath, or severe worsening of symptoms. Discussed risks, benefits, alternatives, and potential side effects of medications. Patient expressed understanding and agreed with the plan. Toby Parada DO [address] [place] [address] documented in this encounterPremier [facility]09-05-2024 History of Present illness Narrative* Zina Villarreal APRN.CNP - 03/16/2024 3:23 PM EDT CC: Patient presents with: Cough: Chest congestion HPI: Cande Henry is a 33 year old female who presents to the office with complaint of chest congestion and cough, nonproductive for the past day. Symptoms are staying the same. Associated symptoms includes fatigue. Denies nausea, vomiting , and diarrhea. Treatments tried include nothing so far. with no relief of symptoms. Sick contacts: unknown. History of asthma, frequent episodes of bronchitis, chronic bronchitis, bronchiectasis or COPD: No Smoker: No Seasonal/environmental allergies: No The ROS is otherwise negative. The patient's pmh, medications, allergies, and past visits are reviewed. PHYSICAL EXAM: BP 133/82 Pulse 112 Temp 36.9 C (98.4 F) Resp 18 Wt 98.8 kg (217 lb 13 oz) LMP 12/27/2023(Exact Date) SpO2 100% BMI 34.19 kg/m General appearance: alert, cooperative, pleasant, in no acute distress Head: Normocephalic Eyes: EOM's intact, conjunctiva pink and moist, no icterus, sclera white, non-injected Ears: Right ear: External ear/canal- Normal, TM - clear with good landmarks. Left ear: External ear/canal- Normal, TM - clear with good landmarks Oropharynx:mild erythema, without exudates present, uvula midline Heart: Negative. RRR without obvious murmur, gallop, or rubs. No ectopy. Lungs: clear to auscultation, without rales or wheeze, good air exchange PAST MEDICAL HISTORY 03/18/2016: Atypical squamous cells of undetermined significance (ASCUS) on Papanicolaou smear of cervix 2011: Chlamydia 01/25/2014: Depression No date: PCOS (polycystic ovarian syndrome) 01/25/2014: Thyromegaly PAST SURGICAL HISTORY 12/10/12: DELIVERY ONLY Comment: , low transverse ALLERGIES Latex MEDICATIONS topiramate (TOPAMAX) 25 mg tablet Take 1 tablet by mouth daily in the late afternoon. diclofenac (VOLTAREN ARTHRITIS PAIN) 1 % topical gel Apply 2 g to affected area four times daily. As needed for joint pain cholecalciferol, Vitamin D3, (VITAMIN D3) 1,250 mcg (50,000 unit) cap capsule Take 1 capsule by mouth one time a week. pantoprazole DR (PROTONIX) 40 mg tablet Take 1 tablet by mouth once daily. cyclobenzaprine (FLEXERIL) 10 mg tablet Take 1 tablet by mouth three times daily as needed for muscle spasm. naproxen (NAPROSYN) 500 mg tablet Take 1 tablet by mouth twice daily as needed (pain/inflammation, take with food.). lactobacillus combination no.4 (PROBIOTIC) 3 billion cell cap Take 1 capsule by mouth once daily. FAMILY HISTORY Problem Relation Age of Onset Hypertension Mother Thyroid Mother Social History Tobacco Use Smoking status: Former Current packs/day: 0.00 Types: Cigarettes Start date: 03/15/2011 Quit date: 03/15/2012 Years since quittin.0 Smokeless tobacco: Never Substance Use Topics Alcohol use: Yes Comment: weekends Drug use: No ASSESSMENT/PLAN: 1. URI, acute - ICD9: 465.9, ICD10: J06.9 - COVID & INFLUENZA A/B & RSV PCR, ROUTINE OTC meds for symptoms.. Potential red flag symptoms discussed with the patient. Reviewed appropriate action plan to take if red flag symptoms occur. Patient agreeable to treatment plan. Zina Villarreal APRN.PANFILO documented in this encounterPremier Health [facility]06-24-2024 History of Present illness Narrative* Toby Parada DO - 01/03/2024 4:45 PM EDT CC: Cande Henry is a 33 year old female who presents to the office for follow up HPI: She is post from of her 2nd child, son Fernandez, whom is now 15 months old Obesity, wanting to continue to work on weight loss. Has been trying to cut down on her sugars and starches in her diet. Struggling to cut back on portions. She was just started on Adipex about 6 months ago. She has lost 4lbs but admits she didn't start the medication right away due to an illness. Tolerating medication well without obvious SE to medication. She is taking as prescribed. Weight is d own to 219 lbs. She would like to continue the medication Right knee pain, chronic, states that she did fall on it when she had of her daughter about 11 years ago. No known other injuries. No swelling. Worse with prolonged standing. PAST MEDICAL HISTORY Diagnosis Date Atypical squamous cells of undetermined significance (ASCUS) on Papanicolaou smear of cervix 03/18/2016 Chlamydia 2010 Depression 01/25/2014 PCOS (polycystic ovarian syndrome) Thyromegaly 01/25/2014 PAST SURGICAL HISTORY Procedure Laterality Date DELIVERY ONLY 12/10/12 , low transverse Current Outpatient Medications Medication Sig topiramate (TOPAMAX) 25 mg tablet Take 1 tablet by mouth daily in the late afternoon. Phentermine HCl (ADIPEX-P) 37.5 mg tablet Take 1 tablet by mouth daily before breakfast for 30 days. BMI 36.10 diclofenac (VOLTAREN ARTHRITIS PAIN) 1 % topical gel Apply 2 g to affected area four times daily. As needed for joint pain cholecalciferol, Vitamin D3, (VITAMIN D3) 1,250 mcg (50,000 unit) cap capsule Take 1 capsule by mouth one time a week. pantoprazole DR (PROTONIX) 40 mg tablet Take 1 tablet by mouth once daily. cyclobenzaprine (FLEXERIL) 10 mg tablet Take 1 tablet by mouth three times daily as needed for muscle spasm. naproxen (NAPROSYN) 500 mg tablet Take 1 tablet by mouth twice daily as needed (pain/inflammation, take with food.). lactobacillus combination no.4 (PROBIOTIC) 3 billion cell cap Take 1 capsule by mouth once daily. No current facility-administered medications for this visit. ALLERGIES Allergen Reactions Latex Rash Social History Tobacco Use Smoking status: Former Years: 1 Types: Cigarettes Quit date: 03/15/2012 Years since quittin.8 Smokeless tobacco: Never Substance Use Topics Alcohol use: Yes Comment: weekends Drug use: No ROS: Gen: Negative fevers or chills. See HPI PE: BP 130/80 Pulse 64 Temp (Src) 96.8 (Left Tympanic) Resp 16 Wt 219 lb (99.3kg) LMP 12/27/2023 Gen: A&OX3, NAD, non-toxic appearing HEENT: PERRLA, EOMs intact b/l, nares without drainage, pharynx without erythema, exudate, lesions,or drainage. Uvula midline. Neck: No LAD, no thyromegaly, no meningismus. CV: RRR, no murmur Lungs: CTA b/l, no wheezing Skin: No rashes, lesions, or wounds on exposed skin. Right knee without effusion present, no joint pain on exam, normal ROM No edema, normal pulses ASSESSMENT/PLAN: 1. Obesity, Class II, BMI 35-39.9 - ICD9: 278.00, ICD10: E66.9 (primary diagnosis) Continue same medications Follow up in 3 months and prn - TOPIRAMATE 25 MG TABLET - PHENTERMINE 37.5 MG TABLET 2. Acute pain of right knee - ICD9: 719.46, ICD10: M25.561 Xrays as ordered F/u with orthopedics and PHYSICAL THERAPY if symptoms worsening - XR KNEE GENERAL 4V AP BOTH/PA BOTH/LAT/MERC RIGHT Toby Parada DO Return if no improvement. Follow up with Toby Parada DO. To ER if develops chest pain, shortness of breath,. Discussed risks, benefits, alternatives, and potential side effects of medications. Patient/Guardian expressed understanding and agreed with the plan. See patient instructions. Toby Parada DO [address] [place] [address] documented in this encounterPremier Health [facility]04-18-2024 Miscellaneous Notes* Telephone Encounter - Lenka Sadler MA - 10/28/2023 8:45 AM EDT Patient active [employer]. Patient notified via [employer] message. Lenka Sadler MA * Telephone Encounter - Toby Parada DO - 10/27/2023 8:41 PM EDT Please inform patient that her vitamin D levels are very low. She needs to be taking her vitamin D350,000 international unit(s) once a week supplement Toby Parada DO documented in this encounterPremier Health [facility]04-04-2024 Hospital Discharge instructions Additional Instructions Your sutures should dissolve in the next 7 to 10 days. Take your antibiotic as directed to prevent infection. Return to the ER should you have any further concernsWParkwood Hospital Work Phone: [phone] 800-122903-08-2024 History of Present illness Narrative* Toby Parada, DO - 09/17/2023 1:56 PM EST CC: Cande Henry is a 33 year old female who presents to the office for 3 months follow up HPI: She is post from of her 2nd child, son Fernandez, whom is now 1 year old Obesity, wanting to work on weight loss. Has been trying to cut down on her sugars and starches in her diet. Struggling to cut back on portions. She was just started on Adipex about 3 months ago. Shehas lost 4lbs but admits she didn't start the medication right away due to an illness. Hasn't been on medication 3 months- tolerating well without SE PAST MEDICAL HISTORY Diagnosis Date Atypical squamous cells of undetermined significance (ASCUS) on Papanicolaou smear of cervix 03/18/2016 Chlamydia 2010 Depression 01/25/2014 PCOS (polycystic ovarian syndrome) Thyromegaly 01/25/2014 PAST SURGICAL HISTORY Procedure Laterality Date DELIVERY ONLY 12/10/12 , low transverse Current Outpatient Medications Medication Sig cholecalciferol, Vitamin D3, (VITAMIN D3) 1,250 mcg (50,000 unit) cap capsule Take 1 capsule by mouth one time a week. pantoprazole DR (PROTONIX) 40 mg tablet Take 1 tablet by mouth once daily. cyclobenzaprine (FLEXERIL) 10 mg tablet Take 1 tablet by mouth three times daily as needed for muscle spasm. naproxen (NAPROSYN) 500 mg tablet Take 1 tablet by mouth twice daily as needed (pain/inflammation, take with food.). lactobacillus combination no.4 (PROBIOTIC) 3 billion cell cap Take 1 capsule by mouth once daily. topiramate (TOPAMAX) 25 mg tablet Take 1 tablet by mouth daily in the late afternoon. No current facility-administered medications for this visit. ALLERGIES Allergen Reactions Latex Rash Social History Tobacco Use Smoking status: Former Years: 1 Types: Cigarettes Quit date: 03/15/2012 Years since quittin.5 Smokeless tobacco: Never Substance Use Topics Alcohol use: Yes Comment: weekends Drug use: No ROS: See HPI PE: BP 110/70 Pulse 80 Temp (Src) 97.1 (Left Tympanic) Resp 12 Wt 227 lb (103.0kg) LMP 06/13/2023 Gen: A&OX3, NAD, non-toxic appearing HEENT: PERRLA, EOMs intact b/l, nares without drainage, pharynx without erythema, exudate, lesions,or drainage. Uvula midline. Neck: No LAD, no thyromegaly, no meningismus. CV: RRR, no murmur Lungs: CTA b/l, no wheezing Skin: No rashes, lesions, or wounds on exposed skin. ASSESSMENT/PLAN: 1. Obesity, Class II, BMI 35-39.9 - ICD9: 278.00, ICD10: E66.9 Continue adipex in AM, add on topamax in the afternoon. Consider metformin if needed. Need for weight loss. Need for regular exercise and healthy diet. - TOPIRAMATE 25 MG TABLET Toby Parada DO Return if no improvement. Follow up with Toby Parada DO. To ER if develops chest pain, shortness of breath. Discussed risks, benefits, alternatives, and potential side effects of medications. Patient/Guardian expressed understanding and agreed with the plan. See patient instructions. Toby Parada DO [address] [place] [address] documented in this encounterPremier Health [facility]02-08-2024 History of Present illness Narrative* Zina Villarreal APRN.E TAILER - 08/19/2023 3:00 PM EST CC: No chief complaint on file. HPI: Cande Henry is a 33 year old female who presents to the office with complaint of head congestion and cough, nonproductive for a few days. Symptoms are staying the same. Associated symptoms includes cough. Denies fever, nausea, vomiting , and diarrhea. Treatments tried include nothing so far. with no relief of symptoms. Sick contacts: unknown. History of asthma, frequent episodes of bronchitis, chronic bronchitis, bronchiectasis or COPD: No Smoker: Yes Seasonal/environmental allergies: No The ROS is otherwise negative. The patient's pmh, medications, allergies, and past visits are reviewed. PHYSICAL EXAM: LMP 06/13/2023 (Exact Date) General appearance: alert, cooperative, pleasant, in no acute distress Head: Normocephalic Eyes: EOM's intact, conjunctiva pink and moist, no icterus, sclera white, non-injected Ears: Right ear: External ear/canal- Normal, TM - clear with good landmarks. Left ear: External ear/canal- Normal, TM - clear with good landmarks Oropharynx:mild erythema, without exudates present Neck: mild cervical adenopathy Heart: Negative. RRR without obvious murmur, gallop, or rubs. No ectopy. Lungs: clear to auscultation, without rales or wheeze, good air exchange PAST MEDICAL HISTORY Diagnosis Date Atypical squamous cells of undetermined significance (ASCUS) on Papanicolaou smear of cervix 03/18/2016 Chlamydia 2010 Depression 01/25/2014 PCOS (polycystic ovarian syndrome) Thyromegaly 01/25/2014 PAST SURGICAL HISTORY Procedure Laterality Date DELIVERY ONLY 12/10/12 , low transverse ALLERGIES Latex MEDICATIONS cholecalciferol, Vitamin D3, (VITAMIN D3) 1,250 mcg (50,000 unit) cap capsule Take 1 capsule by mouth one time a week. pantoprazole DR (PROTONIX) 40 mg tablet Take 1 tablet by mouth once daily. cyclobenzaprine (FLEXERIL) 10 mg tablet Take 1 tablet by mouth three times daily as needed for muscle spasm. naproxen (NAPROSYN) 500 mg tablet Take 1 tablet by mouth twice daily as needed (pain/inflammation, take with food.). lactobacillus combination no.4 (PROBIOTIC) 3 billion cell cap Take 1 capsule by mouth once daily. FAMILY HISTORY Problem Relation Age of Onset Hypertension Mother Thyroid Mother Social History Tobacco Use Smoking status: Former Years: 1 Types: Cigarettes Quit date: 03/15/2012 Years since quittin.4 Smokeless tobacco: Never Substance Use Topics Alcohol use: Yes Comment: weekends Drug use: No ASSESSMENT/PLAN: 1. URI, acute - ICD9: 465.9, ICD10: J06.9 - COVID & INFLUENZA A/B & RSV NAAT, ROUTINE . Potential red flag symptoms discussed with the patient. Reviewed appropriate action plan to take if red flag symptoms occur. Patient agreeable to treatment plan. Zina Villarreal APRN.PANFILO documented in this encounterPremier Health [facility] Center12-20-2023 Miscellaneous Notes* Telephone Encounter - Flor Huff LPN - 06/30/2023 10:22 AM EST Patient notified and voiced her understanding. * Telephone Encounter - Toby Parada DO - 06/30/2023 7:02 AM EST Please inform patient that her labs are showing that her vitamin D3 levels are very low. Needs to start supplement as below and recheck labs in 3 months Toby Parada DO documented in this encounterPremier Health [facility] Center12-06-2023 History of Present illness Narrative* Toby Parada DO - 06/16/2023 8:12 AM EST CC: Cande Henry is a 33 year old female who [...] kg (230 lb) Height: 170 cm (5' 6.93) Gen: A&O, NAD, non-toxic appearing, Pleasant, cooperative [...] diet of 1000 mg/day for under 50, 1200- 1500 mg/day for 50+ - Discussed need and [...] with esophagitis, unspecified whether hemorrhage - ICD9: 530.11,ICD10: K21.00 - Discussed lifestyle modifications including losing [...] office - PHENTERMINE 37.5 MG TABLET Toby Parada DO To ER if develops chest pain, shortness of breath, or severe worsening of symptoms. Discussed risks, benefits, alternatives, and potential side effects of medications. Patient expressed understanding and agreed with the plan. Toby Parada DO [address] [place] [address] documented in this encounterPremier Health [facility]06-01-2023 History of Present illness Narrative* EDVIN Hobbs - 12/10/2022 9:01 AM EDT This note was created using NoteWriter. Subjective Cande Henry is a 32 year old female. HPI [...] will have to return for treatment if positiveversus treating today since she was exposed. She [...] ER evaluation. EDVIN Hobbs documented in this encounterPremier Health [facility]06-01-2023 Instructions* Patient Instructions* EDVIN Hobsb - 12/10/2022 9:00 AM EDT No sexual intercourse for 10 days. Notify partner of any positive results Return if you develop any symptoms. documented in this encounterPremier Health [facility] Center03-31-2022 NotePap Smear Specimen AdequacyMarch 2021 1:03pmCommentSatisfactory for evaluation. No endocervical component is identified.An endocervical component is not commonly seen in the patient.[facility] INTERFACED A#[id number] District Hospital Work Phone: Comment on above:Satisfactory for evaluation. No endocervical component is identified.An endocervical component is not commonly seen in the patient.10-09-2021 NotePap Smear Specimen AdequacyMarch 2021 1:03pmCommentSatisfactory for evaluation. No endocervical component is identified.An endocervical component is not commonly seen in the patient.[email or web address] INTERFACED A#[id number] District Hospital Work Phone: Comment on above:Satisfactory for evaluation. No endocervical component is identified.An endocervical component is not commonly seen in the patient.10-09-2021 NotePap Smear Specimen AdequacyMarch 2021 1:03pmComment.Satisfactory for evaluation. No endocervical component is identified.An endocervical component is not commonly seen in the patient.LABThe [employer]line INTERFACED A#[id number] District Hospital Work Phone: Comment on above:Satisfactory for evaluation. No endocervical component is identified.An endocervical component is not commonly seen in the patient.10-09-2021 NotePap Smear Specimen AdequacyMarch 2021 1:03pmComment.Satisfactory for evaluation. No endocervical component is identified.An endocervical component is not commonly seen in the patient.[email or web address] INTERFACED [facility][id number] Work Phone: Comptrz on above:Satisfactory for evaluation. No endocervical component is identified.An endocervical component is not commonly seen in the patient.10-09-2021 NotePap Smear Specimen AdequacyMarch 2021 1:03pmComment.Satisfactory for evaluation. No endocervical component is identified.An endocervical component is not commonly seen in the patient.[email or web address] INTERFACED [facility][id number] Work Phone: Comment on above:Satisfactory for evaluation. No endocervical component is identified.An endocervical component is not commonly seen in the patient.02-18-2015 History of Past illness Narrative* Problem Noted Date Resolved Date Secondary amenorrhea 02/18/2015 03/21/2015 Supervision of other normal 05/27/2012 12/16/2012 Overview: Girl on [place]- [place] with uncertain dates 04/14/2012 0 08/19/2012 Overview: 04/29: flu vaccine today 04/14/2012Patient states her last menstrual period was shorter and deputy court than normal. She has a history of [...] of this encounter (statuses as of 12/10/2022) [facility] History of Past illness Narrative* Problem Noted Date Resolved Date Secondary amenorrhea 02/18/2015 03/21/2015 Supervision of other normal 05/27/2012 12/16/2012 Overview: Girl on US- [place] with uncertain dates 04/14/2012 0 08/19/2012 Overview: 04/29: flu vaccine today 04/14/2012Patient states her last menstrual period was shorter and deputy court than normal. She has a history of [...] of this encounter (statuses as of 12/11/2022) [facility] History of Past illness Narrative* Problem Noted Date Diagnosed Date Resolved Date Secondary amenorrhea 02/18/2015 015 Supervision of other normal 05/27/2012 12/16/2012 Overview: Girl on [place]- [place] with uncertain dates 04/14/2012 08/19/2012 Overview: 04/29: flu vaccine today 04/14/2012Patient states her last menstrual period was shorter and deputy court than normal. She has a history of [...] of this encounter (statuses as of 06/16/2023) [facility] History of Past illness Narrative* Problem Noted Date Diagnosed Date Resolved Date Secondary amenorrhea 02/18/2015 015 Supervision of other normal 05/27/2012 12/16/2012 Overview: Girl on [place]- [place] with uncertain dates 04/14/2012 08/19/2012 Overview: 04/29: flu vaccine today 04/14/2012Patient states her last menstrual period was shorter and deputy court than normal. She has a history of [...] of this encounter (statuses as of 07/01/2023) [facility] History of Past illness Narrative* Problem Noted Date Diagnosed Date Resolved Date Secondary amenorrhea 02/18/2015 015 Supervision of other normal 05/27/2012 12/16/2012 Overview: Girl on [place]- [place] with uncertain dates 04/14/2012 08/19/2012 Overview: 04/29: flu vaccine today 04/14/2012Patient states her last menstrual period was shorter and deputy court than normal. She has a history of [...] as of this encounter (statuses as of 08/19/2023) [facility] History of Past illness Narrative* Problem Noted Date Diagnosed Date Resolved Date Secondary amenorrhea 02/18/2015 015 Supervision of other normal 05/27/2012 12/16/2012 Overview: Girl on [place]- [place] with uncertain dates 04/14/2012 08/19/2012 Overview: 04/29: flu vaccine today 04/14/2012Patient states her last menstrual period was shorter and deputy court than normal. She has a history of [...] as of this encounter (statuses as of 09/17/2023) [facility] History of Past illness Narrative* Problem Noted Date Diagnosed Date Resolved Date Secondary amenorrhea 02/18/2015 015 Supervision of other normal 05/27/2012 12/16/2012 Overview: Girl on [place]- [place] with uncertain dates 04/14/2012 08/19/2012 Overview: 04/29: flu vaccine today 04/14/2012Patient states her last menstrual period was shorter and deputy court than normal. She has a history of [...] as of this encounter (statuses as of 10/28/2023) [facility] Diagnosis Onset Date Resolution Status Dysmenorrhea acute Excessive sweating acute History of acute Infertility acute Obesity affecting acute PCOS (polycystic ovarian syndrome) acute acute Supervision of other normal acute Unknown varicella vaccination status acute [facility] Work Phone: Evaluation note* Diagnosis Onset Date Resolution Status History of acute Obesity affecting acute acute Supervision of other normal acute Unknown varicella vaccination status acute Dysmenorrhea resolved Excessive sweating resolved Infertility resolved PCOS (polycystic ovarian syndrome) resolved History of acute Marijuana use acute Obesity affecting acute acute Supervision of other normal acute Unknown varicella vaccination status acute Dysmenorrhea resolved Excessive sweating resolved Infertility resolved PCOS (polycystic ovarian syndrome) resolved History of acute Marijuana use acute Obesity affecting acute acute Screening for genetic disease carrier status acute Supervision of other normal acute Abscess of breast acute [facility] Work Phone: Evaluation note* Diagnosis Onset Date Resolution Status History of acute Obesity affecting noneactive acute Supervision of other normal acute Unknown varicella vaccination status acute Dysmenorrhea resolved Excessive sweating resolved Infertility resolved PCOS (polycystic ovarian syndrome) resolved History of acute Marijuana use acute Obesity affecting acute acute Supervision of other normal acute Unknown varicella vaccination status acute Dysmenorrhea resolved Excessive sweating resolved Infertility resolved PCOS (polycystic ovarian syndrome) resolved History of acute Marijuana use acute Obesity affecting acute acute Screening for genetic disease carrier status acute Supervision of other normal acute Abscess of breast acute Breast nodule noneactive Abscess of breast acute History of acute Marijuana use acute Obesity affecting acute acute Screening for genetic disease carrier status acute Supervision of other normal acute Unknown varicella vaccination status acute [facility] Work Phone: Evaluation note* Diagnosis Onset Date Resolution Status History of acute Obesity affecting noneactive acute Supervision of other normal acute Unknown varicella vaccination status acute Dysmenorrhea resolved Excessive sweating resolved Infertility resolved PCOS (polycystic ovarian syndrome) resolved History of acute Marijuana use acute Obesity affecting acute acute Supervision of other normal acute Unknown varicella vaccination status acute Dysmenorrhea resolved Excessive sweating resolved Infertility resolved PCOS (polycystic ovarian syndrome) resolved History of acute Marijuana use acute Obesity affecting acute acute Screening for genetic disease carrier status acute Supervision of other normal acute Abscess of breast acute Breast nodule noneactive Abscess of breast acute History of acute Marijuana use acute Obesity affecting acute acute Screening for genetic disease carrier status acute Supervision of other normal acute Unknown varicella vaccination status acute Abscess of breast acute History of acute Marijuana use acute Obesity affecting acute acute Screening for genetic disease carrier status acute Supervision of other normal acute Unknown varicella vaccination status acute [facility] Work Phone: Evaluation note* Diagnosis Onset Date Resolution Status History of acute Marijuana use acute Obesity affecting acute acute Supervision of other normal acute Unknown varicella vaccination status acute Dysmenorrhea resolved Excessive sweating resolved Infertility resolved PCOS (polycystic ovarian syndrome) resolved History of acute Marijuana use acute Obesity affecting acute acute Screening for genetic disease carrier status acute Supervision of other normal acute Abscess of breast acute Breast nodule noneactive Abscess of breast acute History of acute Marijuana use acute Obesity affecting acute acute Screening for genetic disease carrier status acute Supervision of other normal acute Unknown varicella vaccination status acute Abscess of breast acute History of acute Marijuana use acute Obesity affecting acute acute Screening for genetic disease carrier status acute Supervision of other normal acute Unknown varicella vaccination status acute History of acute [id number] acute Marijuana use acute Obesity affecting acute acute Screening for genetic disease carrier status acute Supervision of other normal acute Unknown varicella vaccination status acute [facility] Work Phone: Evaluation note* Diagnosis Onset Date Resolution Status History of acute Marijuana use acute Obesity affecting acute acute Screening for genetic disease carrier status acute Supervision of other normal acute Unknown varicella vaccination status acute Abscess of breast resolved History of acute Marijuana use acute Obesity affecting acute acute Screening for genetic disease carrier status acute Supervision of other normal acute Unknown varicella vaccination status acute Abscess of breast resolved History of acute Marijuana use acute Obesity affecting acute acute Screening for genetic disease carrier status acute Supervision of other normal acute Unknown varicella vaccination status acute [id number] resolved History of acute Marijuana use acute Obesity affecting acute acute Screening for genetic disease carrier status acute Supervision of other normal acute Unknown varicella vaccination status acute Abscess of breast resolved [id number] resolved History of acute Marijuana use acute Obesity affecting acute acute Screening for genetic disease carrier status acute Supervision of other normal acute Unknown varicella vaccination status acute Abscess of breast resolved [id number] resolved History of acute Marijuana use acute Obesity affecting acute acute Screening for genetic disease carrier status acute Supervision of other normal acute Unknown varicella vaccination status acute Abscess of breast resolved [id number] resolved History of acute Marijuana use acute Obesity affecting acute acute Screening for genetic disease carrier status acute Supervision of other normal acute Unknown varicella vaccination status acute Abscess of breast resolved [id number] resolved History of acute Marijuana use acute Obesity affecting acute acute Screening for genetic disease carrier status acute Supervision of other normal acute Unknown varicella vaccination status acute [facility] Work Phone: Evaluation note* Diagnosis Exposure to gonorrhea- Primary Contact with or exposure to venereal diseases Encounter for assessment of STD exposure documented [facility] this [facility] Diagnosis Well adult exam- Primary Routine general medical examination at a health care facility Gastroesophageal reflux disease with esophagitis, unspecified whether hemorrhage Need for influenza vaccination Need for prophylactic vaccination and inoculation against influenza Obesity, Class II, BMI 35-39.9 Obesity, unspecified [facility] Diagnosis Vitamin D deficiency- Primary Unspecified vitamin D deficiency [facility] this [facility] Diagnosis Onset Date Resolution Status Thyromegaly acute Encounter for routine gynecological examination noneactive [facility] Work Phone: Evaluation note* Diagnosis URI, acute- Primary Acute upper respiratory infections of unspecified site [facility] Diagnosis Obesity, Class II, BMI 35-39.9- Primary Obesity, unspecified [facility] Obesity, Class II, BMI 35-39.9- Primary Obesity, unspecified Acute pain of right knee [facility] URI, acute- Primary Acute upper respiratory infections of unspecified site [facility] Diagnosis Dysmetabolic syndrome- Primary Dysmetabolic Syndrome X Well adult exam Routine general medical examination at a health care facility Vitamin D deficiency Unspecified vitamin D deficiency Obesity, Class II, BMI 35-39.9 Obesity, unspecified Nipple discharge in female Other sign and symptom in breast [facility] this [facility] Diagnosis URI, acute- Primary Acute upper respiratory infections of unspecified site [facility] this [facility] Diagnosis Myalgia Mylagia and myositis, unspecified Gastroesophageal reflux disease with esophagitis, unspecified whether hemorrhage [facility] Diagnosis Gastroesophageal reflux disease with esophagitis, unspecified whether hemorrhage Vitamin D deficiency Unspecified vitamin D deficiency Obesity, Class II, BMI 35-39.9 Obesity, unspecified [facility] Diagnosis Generalized abdominal pain- Primary Abdominal pain, generalized Hematemesis with nausea documented in this encounter [facility] note* Diagnosis Onset Date Resolution Status Admit Date Encounter for routine gynecological examination noneactive December 102024 2:36pm [facility] Work Phone: Evaluation note* Diagnosis Well adult exam- Primary Routine general medical examination at a health care facility Vitamin D deficiency Unspecified vitamin D deficiency Myalgia Mylagia and myositis, unspecified Gastroesophageal reflux disease with esophagitis, unspecified whether hemorrhage Obesity, Class II, BMI 35-39.9 Obesity, unspecified Chronic pain of right knee documented in this encounter [facility] for referral (narrative)* Diagnostic Procedure Only (Routine) - Pending Review Specialty Diagnoses / Procedures Referred By Nirmala davenport Referred To Contact XR IMAGING Diagnoses Acute pain of right knee Procedures XR KNEE GENERAL 4V AP BOTH/PA BOTH/LAT/MERC RIGHT RADIOLOGIC EXAM KNEE COMPLETE 4/MORE VIEWS Toby Parada, [address] [place] [address] [place] [address] Referral ID Status Reason Start Date Expiration Date Visits Requested Visits Authorized [id number] Pending Review Auto-Generat ed Referral 01/03/2024 02/01/2025 1 1 [facility] for referral (narrative)No reason for [facility] Work [facility]: Chief Complaint and Reason for Visit Chief Complaint INFERTILY INFERTILY Amb Documentation new ob lmp 08/06/21 Reason for Visit Dysmenorrhea Excessive sweating History of Infertility Obesity affecting PCOS (polycystic ovarian syndrome) Supervision of other normal Unknown varicella vaccination status Chief Complaint Amb Documentation new ob lmp 08/06/21 13WK OB 17WK OB E-ORDER nipple pain/possible infection Reason for Visit History of Obesity affecting Supervision of other normal Unknown varicella vaccination status Dysmenorrhea Excessive sweating Infertility PCOS (polycystic ovarian syndrome) History of Marijuana use Obesity affecting Supervision of other normal Unknown varicella vaccination status Dysmenorrhea Excessive sweating Infertility PCOS (polycystic ovarian syndrome) History of Marijuana use Obesity affecting Screening for genetic disease carrier status Supervision of other normal Abscess of breast Chief Complaint Amb Documentation new ob lmp 08/06/21 13WK OB 17WK OB E-ORDER nipple pain/possible infection Prental Appt. Nipple Peircing 21 WK OB RIGHT BREAST NODULE Reason for Visit History of Obesity affecting Supervision of other normal Unknown varicella vaccination status Dysmenorrhea Excessive sweating Infertility PCOS (polycystic ovarian syndrome) History of Marijuana use Obesity affecting Supervision of other normal Unknown varicella vaccination status Dysmenorrhea Excessive sweating Infertility PCOS (polycystic ovarian syndrome) History of Marijuana use Obesity affecting Screening for genetic disease carrier status Supervision of other normal Abscess of breast Breast nodule Abscess of breast History of Marijuana use Obesity affecting Screening for genetic disease carrier status Supervision of other normal Unknown varicella vaccination status Chief Complaint new ob lmp 08/06/21 13WK OB 17WK OB E-ORDER nipple pain/possible infection Prental Appt. Nipple Peircing 21 WK OB RIGHT BREAST NODULE 25 WK OB VOMITING Reason for Visit History of Obesity affecting Supervision of other normal Unknown varicella vaccination status Dysmenorrhea Excessive sweating Infertility PCOS (polycystic ovarian syndrome) History of Marijuana use Obesity affecting Supervision of other normal Unknown varicella vaccination status Dysmenorrhea Excessive sweating Infertility PCOS (polycystic ovarian syndrome) History of Marijuana use Obesity affecting Screening for genetic disease carrier status Supervision of other normal Abscess of breast Breast nodule Abscess of breast History of Marijuana use Obesity affecting Screening for genetic disease carrier status Supervision of other normal Unknown varicella vaccination status Abscess of breast History of Marijuana use Obesity affecting Screening for genetic disease carrier status Supervision of other normal Unknown varicella vaccination status Chief Complaint 13WK OB 17WK OB E-ORDER nipple pain/possible infection Prental Appt. Nipple Peircing 21 WK OB RIGHT BREAST NODULE 25 WK OB VOMITING 28 WK OB/GLUCOSE E ORDERS Reason for Visit History of Marijuana use Obesity affecting Supervision of other normal Unknown varicella vaccination status Dysmenorrhea Excessive sweating Infertility PCOS (polycystic ovarian syndrome) History of Marijuana use Obesity affecting Screening for genetic disease carrier status Supervision of other normal Abscess of breast Breast nodule Abscess of breast History of Marijuana use Obesity affecting Screening for genetic disease carrier status Supervision of other normal Unknown varicella vaccination status Abscess of breast History of Marijuana use Obesity affecting Screening for genetic disease carrier status Supervision of other normal Unknown varicella vaccination status History of [id number] Marijuana use Obesity affecting Screening for genetic disease carrier status Supervision of other normal Unknown varicella vaccination status Chief Complaint 21 WK OB RIGHT BREAST NODULE 25 WK OB VOMITING 28 WK OB/GLUCOSE E ORDERS 30 WK OB 32WK OB 34WK OB 36WK OB 37WK OB Reason for Visit History of Marijuana use Obesity affecting Screening for genetic disease carrier status Supervision of other normal Unknown varicella vaccination status Abscess of breast History of Marijuana use Obesity affecting Screening for genetic disease carrier status Supervision of other normal Unknown varicella vaccination status Abscess of breast History of Marijuana use Obesity affecting Screening for genetic disease carrier status Supervision of other normal Unknown varicella vaccination status [id number] History of Marijuana use Obesity affecting Screening for genetic disease carrier status Supervision of other normal Unknown varicella vaccination status Abscess of breast [id number] History of Marijuana use Obesity affecting Screening for genetic disease carrier status Supervision of other normal Unknown varicella vaccination status Abscess of breast [id number] History of Marijuana use Obesity affecting Screening for genetic disease carrier status Supervision of other normal Unknown varicella vaccination status Abscess of breast [id number] History of Marijuana use Obesity affecting Screening for genetic disease carrier status Supervision of other normal Unknown varicella vaccination status Abscess of breast [id number] History of Marijuana use Obesity affecting Screening for genetic disease carrier status Supervision of other normal Unknown varicella vaccination status Chief Complaint 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) Reason for Visit Thyromegaly Encounter for routine gynecological examination Chief Complaint 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) GOITER Reason for Visit Thyromegaly Encounter for routine gynecological examination Chief Complaint 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) GOITER LAC Reason for Visit Thyromegaly Encounter for routine gynecological examination Chief Complaint 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) GOITER LAC DENTAL Reason for Visit Thyromegaly Encounter for routine gynecological examination Chief Complaint Admit Date 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) December 22, 2024 2:36 pm Reason for Visit Admit Date Encounter for routine gynecological exam ination December 22, 2024 2:36pm Advance Directives No Advanced Directives Records Found Advance Directive Response Recorded Date/ Time Living Will No December 28, 2020 9:48am Power of Supervisor [employer] No December 28 9:48am Advance Directive Response Recorded Date/ Time Living Will No February 01, 2022 11:28am Power of Supervisor [employer] No February 01 11:28am Advance Directive Response Recorded Date/ Time Living Will No May 12 4:34am Power of Supervisor [employer] No May 12, 2022 4:34am Advance Directive Response Recorded Date/ Time Living Will No October 14, 2023 11:42pm Power of Supervisor [employer] No October 13 11:42pm Advance Directive Response Recorded Date/ Time Living Will No October 18, 2023 5:20pm Power of Supervisor [employer] No October 17 5:20pm Summary Purpose Family History Relationship Condition Age at Onset Recorded Date/T sagar mother Hypertension Unknown Disorder of thyroid Unknown father Diabetes mellitus Unknown No Family History Records Found Medications Administered Section Inactive Administered Medications - up to 3 most recent administrations Medication Order MAR Action Action Date Dose Rate Site cefTRIAXone 500 mg intramuscular injection (ROCEPHIN) 500 mg, INTRAMUSCULAR, ONCE, 1 dose, On [place] 12/10/22 at 0930, Please document the antimicrobial indication: Empiric Given 12/10/2022 9:28 AM EDT 500 mg Buttocks, Right Health Concerns Infection Onset Date Last Indicated Resolved Time COVID-19 Rule-Out 08/19/2023 08/19/2023 08/19/2023 10:56 PM EST Additional Source Comments Goals (unrecognized section and content) Goals may be documented in a n alternate sectionGoals may be documented in an alternate sectionGoals may be documented in an alternate sectionGoals may be documented in an alternate sectionGoals may be documented in an alternate sectionGoals may be documented in an alternate sectionGoals may be documented in an alternate sectionGoals may be documented in an alternate sectionGoals may be documented in an alternate sectionGoals may be documented in an alternate sectionGoals may be documented in an alternate sectionGoals may be documented in an alternate sectionGoals may be documented in an alternate section INFORMATION SOURCE (unrecogn ized section and content) DATE CREATED AUTHOR 04/20/2022 [facility] DATE CREATED AUTHOR AUTHOR'S ORGANIZ ATION 04/05/2025 [facility] DATE CREATED AUTHOR AUTHOR'S ORGANIZ ATION 05/17/2025 [facility] Source Comments (unrecognize d section and content) In the event this informatio n is protected by the Federal Confidentiality of Alcohol and Drug Abuse Patient Records regulations: The Federal rules restrict any use of the information to criminally investigate or prosecute any alcohol or drug abuse patient.[facility] Center[facility] the event this information is protected by the Federal Confidentiality of Alcohol and Drug Abuse Patient Records regulations: The Federal rules restrict any use of the information to criminally investigate or prosecute any alcohol or drug abuse patient.[facility] Center[facility] the event this information is protected by the Federal Confidentiality of Alcohol and Drug Abuse Patient Records regulations: The Federal rules restrict any use of the information to criminally investigate or prosecute any alcohol or drug abuse patient.[facility] CenterIn the event this information is protected by the Federal Confidentiality of Alcohol and Drug Abuse Patient Records regulations: The Federal rules restrict any use of the information to criminally investigate or prosecute any alcohol or drug abuse patient.[facility] CenterIn the event this information is protected by the Federal Confidentiality of Alcohol and Drug Abuse Patient Records regulations: The Federal rules restrict any use of the information to criminally investigate or prosecute any alcohol or drug abuse patient.[facility] CenterIn the event this information is protected by the Federal Confidentiality of Alcohol and Drug Abuse Patient Records regulations: The Federal rules restrict any use of the information to criminally investigate or prosecute any alcohol or drug abuse patient.[facility] CenterIn the event this information is protected by the Federal Confidentiality of Alcohol and Drug Abuse Patient Records regulations: The Federal rules restrict any use of the information to criminally investigate or prosecute any alcohol or drug abuse patient.[facility] CenterIn the event this information is protected by the Federal Confidentiality of Alcohol and Drug Abuse Patient Records regulations: The Federal rules restrict any use of the information to criminally investigate or prosecute any alcohol or drug abuse patient.[facility] CenterIn the event this information is protected by the Federal Confidentiality of Alcohol and Drug Abuse Patient Records regulations: The Federal rules restrict any use of the information to criminally investigate or prosecute any alcohol or drug abuse patient.[facility] CenterIn the event this information is protected by the Federal Confidentiality of Alcohol and Drug Abuse Patient Records regulations: The Federal rules restrict any use of the information to criminally investigate or prosecute any alcohol or drug abuse patient.[facility] CenterIn the event this information is protected by the Federal Confidentiality of Alcohol and Drug Abuse Patient Records regulations: The Federal rules restrict any use of the information to criminally investigate or prosecute any alcohol or drug abuse patient.[facility] CenterIn the event this information is protected by the Federal Confidentiality of Alcohol and Drug Abuse Patient Records regulations: The Federal rules restrict any use of the information to criminally investigate or prosecute any alcohol or drug abuse patient.[facility] CenterIn the event this information is protected by the Federal Confidentiality of Alcohol and Drug Abuse Patient Records regulations: The Federal rules restrict any use of the information to criminally investigate or prosecute any alcohol or drug abuse patient.[facility] CenterIn the event this information is protected by the Federal Confidentiality of Alcohol and Drug Abuse Patient Records regulations: The Federal rules restrict any use of the information to criminally investigate or prosecute any alcohol or drug abuse patient.[facility] CenterIn the event this information is protected by the Federal Confidentiality of Alcohol and Drug Abuse Patient Records regulations: The Federal rules restrict any use of the information to criminally investigate or prosecute any alcohol or drug abuse patient.[facility] Reason for Visit (unrecogniz ed section and content) Reason Comments STD Exposed no symptoms Reason Comments Erroneous encounter-disregard Reason Onset Date Comments Yearly Exam Immunizations 06/16/2023 Flu vaccination Reason Comments Chest Congestion cough x 3 days Reason Comments Follow Up Reason Comments Results Reason Comments Follow Up Reason Comments Cough Chest congestion Reason Comments F/U 3 Month Reason Comments Fever Cough, chest congest ion x3 days Reason Onset Date Comments Refill Request 10/23/2024 Reason Comments Abdominal Pain Vomiting, diarrhea x 1 day Care Teams (unrecognized sec tion and content) Certified Hand Therapist Relationship Specialty Start Date End Date Toby Parada DO [address] [place] [address] PCP - General Family Medicine 04/30/14 Certified Hand Therapist Relationship Specialty Start Date End Date Toby Parada DO [address] [place] [address] PCP - General Family Medicine 04/30/14 Certified Hand Therapist Relationship Specialty Start Date End Date Toby Parada DO [address] [place] [address] PCP - General Family Medicine 04/30/14 Certified Hand Therapist Relationship Specialty Start Date End Date Toby Parada DO [address] [place] [address] PCP - General Family Medicine 04/30/14 Team Status: Active Member Role Status Dates Dr. Toby Parada DO Family Provider Active Dr. Toby Parada DO Primary Care Provider Active Team Status: Inactive Member Role Status Dates Dr. Toby Parada , DO Primary Care Provider, Referr ing Provider Active Dr. Arianna Torres MD Attending Provider Active Team Status: Inactive Member Role Status Dates Dr. Toby Parada , DO Primary Care Provider Active Dr. Arianna Torres MD Attending Provider, Referr ing Provider Active Certified Hand Therapist Relationship Specialty Start Date End Date Toby Parada, [address] [place] [address] PCP - General Family Medicine 04/30/14 Certified Hand Therapist Relationship Specialty Start Date End Date Toby Parada DO [address] [place] [address] PCP - General Family Medicine 04/30/14 Team Status: Inactive Member Role Status Dates Dr. Toby Parada , DO Primary Care Provider Active Dr. Dereck Chinchilla , DO Emergency Provider Active Team Status: Inactive Member Role Status Dates Dr. Toby Parada , DO Primary Care Provider Active Dr. Randal Russell , DO Emergency Provider Active Certified Hand Therapist Relationship Specialty Start Date End Date Toby Parada DO [address] [place] [address] PCP - General Family Medicine 04/30/14 Certified Hand Therapist Relationship Specialty Start Date End Date Toby Parada DO [address] [place] [address] PCP - General Family Medicine 04/30/14 Certified Hand Therapist Relationship Specialty Start Date End Date Toby Parada DO [address] [place] [address] PCP - General Family Medicine 04/30/14 Certified Hand Therapist Relationship Specialty Start Date End Date Toby Parada DO [address] [place] [address] PCP - General Family Medicine 04/30/14 Aury Sam STRATEGIC CLIENT EXECUTIVE.E TAILER [address] [place] [address] Airfield Manager Family Medicine 06/18/24 Leah Mario, STRATEGIC CLIENT EXECUTIVE.E TAILER [address] [place] [address] Airfield Manager Family Medicine 06/18/24 Certified Hand Therapist Relationship Specialty Start Date End Date Toby Parada DO [address] [place] [address] PCP - General Family Medicine 04/30/14 Leah Mario, STRATEGIC CLIENT EXECUTIVE.E TAILER [address] [place] [address] Airfield Manager Family Medicine 06/18/24 Certified Hand Therapist Relationship Specialty Start Date End Date Toby Parada DO [address] [place] [address] PCP - General Family Medicine 04/30/14 Leah Mario, STRATEGIC CLIENT EXECUTIVE.E TAILER [address] [place] [address] Airfield Manager Family [facility] 06/18/24 Certified Hand Therapist Relationship Specialty Start Date End Date Toby Parada DO [address] [place] [address] PCP - General Family Medicine 04/30/14 Leah Mario, STRATEGIC CLIENT EXECUTIVE.E TAILER [address] [place] [address] [facility] 06/18/24 Team Status: Inactive Member Role Status Dates Dr. Toby Parada DO Primary Care Provider Active Start: December 22, 2024 End: December 22, 2024 Dr. Toby Parada DO Referring Provider Active Start: December 22, 2024 End: December 22, 2024 Dr. Patricia Borrero DO Attending Provider Activ e Start: December 22, 2024 End: December 22, 2024 Team Status: Inactive Member Role Status Dates Dr. Toby Parada DO Primary Care Provider Active Start: December 22, 2024 End: December 22, 2024 Dr. Patricia Borrero DO Attending Provider Activ e Start: December 22, 2024 End: December 22, 2024 Dr. Patricia Borrero DO Referring Provider Activ e Start: December 22, 2024 End: December 22, 2024 Certified Hand Therapist Relationship Specialty Start Date End Date Toby Parada DO [address] [place], [place] [address] PCP - General Family Medicine 04/30/14 Leah Mario, STRATEGIC CLIENT EXECUTIVE.E TAILER [address] [place], [place] [id number] [facility] 06/18/24 Latanya Alves, STRATEGIC CLIENT EXECUTIVE.E TAILER [address] [place], [place] [id number] [facility] 12/25/24 FOR RECORDS PERTAINING TO PATIENTS WHO ARE [...] BE BASED ON THE PRIMARY CLINICAL RECORDS. [facility] [employer] [facility]. provides no warranty or guarantee of the accuracy or completeness of information in this document.
== END 2025-07-06 15:46 | disposition home or self-care (01) ==
LOC: ED 15:42
PROVIDERS: Emergency Provider Emergency Medicine; PCP Student in an Organized Health Care Education/Training Program; Visit Provider Emergency Medicine
DX: O99.891 Other specified diseases and conditions complicating pregnancy (principal); H66.90 Otitis media, unspecified, unspecified ear; Z90.49 Acquired absence of other specified parts of digestive tract; Z3A.13 13 weeks gestation of pregnancy; O99.321 Drug use complicating pregnancy, first trimester; F12.99 Cannabis use, unspecified with unspecified cannabis-induced disorder
CPT/HCPCS: 99282